=== PATIENT | male | born 1935 | race Caucasian/White ===

== ENCOUNTER → 2016-11-27 | Outpatient (CLI) | payer MEDICARE, BC ==
--- NOTE | 2016-11-27 14:45 | US ---
EXAMINATION TYPE: US kidneys/renal and bladder DATE OF EXAM: 11/27/2016 2:21 PM COMPARISON: NONE CLINICAL HISTORY: 81-year-old male N18.9 CKD Unspecified. TECHNIQUE: Multiple sonographic images of the kidneys and bladder were obtained. FINDINGS: Right Kidney: 9.1 x 5.6 x 5.0 cm without hydronephrosis. Left Kidney: 10.1 x 5.7 x 5.2 cm without hydronephrosis. There is a 5.2 cm exophytic simple cyst in the medial upper pole. Partial distention of the bladder limits its evaluation. Prominent prostate gland is noted measuring at least 5.3 cm wide. IMPRESSION: 1. No hydronephrosis. 2. A 5.2 cm benign exophytic cyst upper pole left kidney. 3. Prostatomegaly measuring at least 5.3 cm wide.
== END | disposition home or self-care (01) ==
LOC: RADUSWWP 14:05
PROVIDERS: ATTEND Internal Medicine Geriatric Medicine
DX: N18.9 Chronic kidney disease, unspecified (principal); N28.1 Cyst of kidney, acquired
CPT/HCPCS: 76770

== ENCOUNTER → 2017-08-21 | Outpatient (CLI) | payer MEDICARE, BC ==
--- NOTE | 2017-08-21 16:37 | CT ---
EXAMINATION TYPE: CT brain wo con DATE OF EXAM: 08/21/2017 COMPARISON: MR brain dated 01/14/2013 HISTORY: Episode of Right hand and arm numbness CT DLP: 1121 mGycm Automated exposure control for dose reduction was used. FINDINGS: There is no acute intracranial hemorrhage or midline shift identified. There is diffuse v entricular and sulcal prominence consistent with diffuse age-related cerebral atrophy. Few foci of hy poattenuation are seen within the periventricular white matter consistent with chronic small vessel i schemic change. Scant mucosal thickening is seen within the right ethmoid sinus. The globes are inta ct and the remaining visualized sinuses are clear. No suspicious extra-axial fluid collection. IMPRESSION: 1. No acute intracranial hemorrhage or midline shift. No evidence of recent acute territorial infarct . 2. 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 3. Mild paranasal sinus disease.
--- NOTE | 2017-08-21 17:01 | US ---
EXAMINATION TYPE: US carotid duplex BILAT DATE OF EXAM: 08/21/2017 COMPARISON: NONE CLINICAL HISTORY: G45.9 TIA, I65.29 stenosis of carotid. Right hand numbness per patient. EXAM MEASUREMENTS: RIGHT: Peak Systolic Velocity (PSV) cm/sec ----- Right CCA: 65.2 ----- Right ICA: 158.9 ----- Right ECA: 166.8 proximally in tortuous lumen ICA/CCA ratio: 2.4 RIGHT: End Diastole cm/sec ----- Right CCA: 14.7 ----- Right ICA: 30.8 ----- Right ECA: 0.0 LEFT: Peak Systolic Velocity (PSV) cm/sec ----- Left CCA: 56.5 ----- Left ICA: 304.5 ----- Left ECA: 91.5 ICA/CCA ratio: 5.4 LEFT: End Diastole cm/sec ----- Left CCA: 11.1 ----- Left ICA: 76.9 ----- Left ECA: 0.0 VERTEBRALS (direction of flow): Right Vertebral: Antegrade Left Vertebral: Antegrade Rhythm: Normal Abnormally elevated PSV is noted in bilateral ICA with Left ICA/CCA ratio abnormally elevated > 4.0, and severe wall changes are noted in bilateral ICA. IMPRESSION: There is antegrade flow in the vertebral arteries. Images of measurements suggest 50-70% stenosis in the right internal carotid artery and close to 90% stenosis in the left internal carotid artery. Criteria for Assigning % of Stenosis / Diameter reduction (Estimation based on the indirect measurements of the internal carotid artery velocities (ICA PSV). 1. Normal (no stenosis)=ICA PSV < 125 cm/s: ratio < 2.0: ICA EDV<40 cm/s. 2. Less than 50% stenosis=ICA PSV < 125 cm/s: ratio < 2.0: ICA EDV<40 cm/s. 3. 50 to 69% stenosis=ICA PSV of 125 to 230 cm/s: ration 2.0 ? 4.0: ICA EDV 40-100 cm/s. 4. Greater than 70% stenosis to near occlusion= ICA PSV > 230 cm/s: ratio > 4.0: ICA EDV > 100 cm/s. 5. Near occlusion= ICA PSV velocities may be low or undetectable: variable ratio and ICA EDV. 6. Total occlusion=unable to detect flow.
== END | disposition home or self-care (01) ==
LOC: RADCTMAIN 15:57
PROVIDERS: ATTEND Internal Medicine Geriatric Medicine
DX: G31.9 Degenerative disease of nervous system, unspecified (principal); R90.82 White matter disease, unspecified; I65.29 Occlusion and stenosis of unspecified carotid artery; Z86.73 Personal history of transient ischemic attack (TIA), and cerebral infarction without residual deficits
CPT/HCPCS: 70450; 93880

== ENCOUNTER 2020-11-23 15:54 | Emergency (ER) | payer MEDICARE ==
[2020-11-23 16:03] VITALS: TEMP 97.8
[2020-11-23 16:57] LABS: Basophils % (A) 1 %; Eosinophils # (A) 0.1 k/uL (0-0.7); Eosinophils % (A) 2 %; HCT 32.8 % (39.0-53.0); HGB 10.8 gm/dL (13.0-17.5); INR 1.1 (<1.2); Lymphocytes # (A) 0.8 k/uL (1.0-4.8); Lymphocytes % (A) 23 %; MCH 31.2 pg (25.0-35.0); MCV 94.4 fL (80.0-100.0); Mean Platelet Volume 10.7; Monocytes # (A) 0.2 k/uL (0-1.0); Monocytes % (A) 7 %; Neutrophils # (A) 2.2 k/uL (1.3-7.7); Neutrophils % (A) 65 %; Partial Thromboplastin Time 24.5 sec (22.0-30.0); Prothrombin Time 11.2 sec (9.0-12.0); RBC 3.48 m/uL (4.30-5.90); RDW 13.1 % (11.5-15.5); WBC 3.4 k/uL (3.8-10.6)
[2020-11-23 16:58] LABS: Platelet Count 95 k/uL (150-450)
[2020-11-23 17:02] LABS: Albumin 4.1 g/dL (3.5-5.0); Calcium 8.7 mg/dL (8.4-10.2); Potassium 4.5 mmol/L (3.5-5.1); Total Bilirubin 0.6 mg/dL (0.2-1.3); Total Protein 6.7 g/dL (6.3-8.2)
[2020-11-23 17:05] LABS: Appearance,Urine Clear (Clear); Bilirubin,Urine Negative (Negative); Blood,Urine Negative (Negative); Color,Urine Light Yellow; Glucose,Urine (UA) Negative (Negative); Ketones,Urine Negative (Negative); Leukocyte Esterase,Urine Negative (Negative); Nitrite,Urine Negative (Negative); Protein,Urine Trace (Negative); Specific Gravity,Urine 1.007 (1.001-1.035); Urobilinogen,Urine <2.0 mg/dL (<2.0)
[2020-11-23] MEDS ORDERED: SODIUM CHLORIDE 0.9% 1,000 ML IV ONE (17:52)
--- NOTE | 2020-11-23 18:36 | ED ---
General Adult HPI - General Chief complaint: Recheck/Abnormal Lab/Rx Stated complaint: Sent by PCP - abn labs Time Seen by Provider: 11/23/20 16:07 Source: patient Mode of arrival: ambulatory Limitations: no limitations - History of Present Illness Initial comments: Patient is an 85-year-old male past medical history of chronic kidney disease, diabetes who presents to the emergency department under the direction of Dr. Gregory. He sees her in office for chronic kidney disease. He reports that he had blood work done at [facility] yesterday. This was normal follow-up blood work. Denies any was having any symptoms. He was called today and they indicated to him that his lab work was significantly off. They recommended that he go to the emergency room for evaluation. Patient does not know what these abnormal labs are. He denies any changes in his urination. No decrease in frequency. No dysuria. He denies any weakness, fevers or chills. No nausea or vomiting. No abdominal pain. No other alleviating, precipitating or modifying factors - Related Data Home Medications Medication Instructions Recorded Confirmed Cholecalciferol [Vitamin D3 (25 25 mcg PO DAILY 11/23/20 11/23/20 Mcg = 1000 Iu)] Dulaglutide [Trulicity] 0.75 mg SQ KO 11/23/20 11/23/20 Esomeprazole Magnesium [NexIUM] 40 mg PO DAILY 11/23/20 11/23/20 Fenofibrate Nanocrystallized 145 mg PO DAILY 11/23/20 11/23/20 [Fenofibrate] Ferrous Sulfate [Feosol] 325 mg PO DAILY 11/23/20 11/23/20 Furosemide [Lasix] 40 mg PO DAILY 11/23/20 11/23/20 Insulin Glargine,Hum.rec.anlog 15 unit SQ HS 11/23/20 11/23/20 [Lantus Solostar] Latanoprost/Pf [Latanoprost 0.005% 1 drop BOTH EYES HS 11/23/20 11/23/20 Eye Drop] Terazosin [Hytrin] 2 mg PO HS 11/23/20 11/23/20 amLODIPine [Norvasc] 10 mg PO DAILY 11/23/20 11/23/20 rOPINIRole HCL [Requip] 2 mg PO HS 11/23/20 11/23/20 Allergies Allergy/AdvReac Type Severity Reaction Status Date / Time No Known Allergies Allergy Verified 11/23/20 17:59 Review of Systems ROS Statement: Those systems with pertinent positive or pertinent negative responses have been documented in the HPI. ROS Other: All systems not noted in ROS Statement are negative. Past Medical History Past Medical History: Diabetes Mellitus, Hyperlipidemia, Hypertension History of Any Multi-Drug Resistant Organisms: None Reported Past Surgical History: Appendectomy, Joint Replacement, Orthopedic Surgery Past Psychological History: No Psychological Hx Reported Smoking Status: Former smoker Past Alcohol Use History: None Reported Past Drug Use History: None Reported General Exam Limitations: no limitations General appearance: alert, in no apparent distress Head exam: Present: atraumatic, normocephalic, normal inspection Eye exam: Present: normal appearance, PERRL, EOMI. Absent: scleral icterus, conjunctival injection, periorbital swelling ENT exam: Present: normal exam, mucous membranes moist Neck exam: Present: normal inspection. Absent: tenderness, meningismus, lymphadenopathy Respiratory exam: Present: normal lung sounds bilaterally. Absent: respiratory distress, wheezes, rales, rhonchi, stridor Cardiovascular Exam: Present: regular rate, normal rhythm, normal heart sounds. Absent: systolic murmur, diastolic murmur, rubs, gallop, clicks GI/Abdominal exam: Present: soft, normal bowel sounds. Absent: distended, tenderness, guarding, rebound, rigid Extremities exam: Present: normal inspection, full ROM, normal capillary refill. Absent: tenderness, pedal edema, joint swelling, calf tenderness Back exam: Present: normal inspection Neurological exam: Present: alert, oriented X3, CN II-XII intact Psychiatric exam: Present: normal affect, normal mood Skin exam: Present: warm, dry, intact, normal color. Absent: rash Course Vital Signs 11/23/20 11/23/20 16:00 19:00 Temperature 97.8 F Pulse Rate 58 L 60 Respiratory 16 18 Rate Blood Pressure 166/53 147/63 O2 Sat by Pulse 99 100 Oximetry Medical Decision Making - Medical Decision Making Upon arrival patient was placed in room 19. The history and physical was performed. Laboratory studies are requested from [facility]. I did repeat laboratory studies in our emergency department. V1 elevated at 126. Creatinine 3.8. I did discuss the results with the patient and Dr. Gregory. She recommended a liter bolus of normal saline. He will be taken off of his Lasix until she evaluates the patient. Bladder scan was performed and did not indicate that the patient was retaining urine. At this time the patient will be discharged home. Dr. Clark stated that her office will call him tomorrow for follow-up. She would like to see him next week in office. The patient is in the new or worsening symptoms he should return to the emergency room. Patient was discharged home in stable condition - Lab Data Result diagrams: 11/23/20 16:29 11/23/20 16:29 Lab Results 11/23/20 11/23/20 11/23/20 Range/Units 16:29 16:29 16:29 WBC 3.4 L (3.8-10.6) k/uL RBC 3.48 L (4.30-5.90) m/uL Hgb 10.8 L (13.0-17.5) gm/dL Hct 32.8 L (39.0-53.0) % MCV 94.4 (80.0-100.0) fL MCH 31.2 (25.0-35.0) pg MCHC 33.0 (31.0-37.0) g/dL RDW 13.1 (11.5-15.5) % Plt Count 95 L (150-450) k/uL MPV 10.7 Neutrophils % 65 % Lymphocytes % 23 % Monocytes % 7 % Eosinophils % 2 % Basophils % 1 % Neutrophils # 2.2 (1.3-7.7) k/uL Lymphocytes # 0.8 L (1.0-4.8) k/uL Monocytes # 0.2 (0-1.0) k/uL Eosinophils # 0.1 (0-0.7) k/uL Basophils # 0.0 (0-0.2) k/uL PT 11.2 (9.0-12.0) sec INR 1.1 (<1.2) APTT 24.5 (22.0-30.0) sec Sodium 139 (137-145) mmol/L Potassium 4.5 (3.5-5.1) mmol/L Chloride 107 (98-107) mmol/L Carbon Dioxide 21 L (22-30) mmol/L Anion Gap 11 mmol/L BUN 126 H* (9-20) mg/dL Creatinine 3.81 H (0.66-1.25) mg/dL Est GFR (CKD-EPI)AfAm 16 (>60 ml/min/1.73 sqM) Est GFR (CKD-EPI)NonAf 14 (>60 ml/min/1.73 sqM) Glucose 180 H (74-99) mg/dL Osmolality 340 H* (280-301) mosm/kg Calcium 8.7 (8.4-10.2) mg/dL Total Bilirubin 0.6 (0.2-1.3) mg/dL AST 32 (17-59) U/L ALT 22 (4-49) U/L Alkaline Phosphatase 61 (38-126) U/L Creatine Kinase 400 H (55-170) U/L Total Protein 6.7 (6.3-8.2) g/dL Albumin 4.1 (3.5-5.0) g/dL Urine Color Urine Appearance (Clear) Urine pH (5.0-8.0) Ur Specific [place] (1.001-1.035) Urine Protein (Negative) Urine Glucose (UA) (Negative) Urine Ketones (Negative) Urine Blood (Negative) Urine Nitrite (Negative) Urine Bilirubin (Negative) Urine Urobilinogen (<2.0) mg/dL Ur Leukocyte Esterase (Negative) Urine Osmolality (50-1400) mosm/kg 11/23/20 11/23/20 Range/Units 16:35 16:35 WBC (3.8-10.6) k/uL RBC (4.30-5.90) m/uL Hgb (13.0-17.5) gm/dL Hct (39.0-53.0) % MCV (80.0-100.0) fL MCH (25.0-35.0) pg MCHC (31.0-37.0) g/dL RDW (11.5-15.5) % Plt Count (150-450) k/uL MPV Neutrophils % % Lymphocytes % % Monocytes % % Eosinophils % % Basophils % % Neutrophils # (1.3-7.7) k/uL Lymphocytes # (1.0-4.8) k/uL Monocytes # (0-1.0) k/uL Eosinophils # (0-0.7) k/uL Basophils # (0-0.2) k/uL PT (9.0-12.0) sec INR (<1.2) APTT (22.0-30.0) sec Sodium (137-145) mmol/L Potassium (3.5-5.1) mmol/L Chloride (98-107) mmol/L Carbon Dioxide (22-30) mmol/L Anion Gap mmol/L BUN (9-20) mg/dL Creatinine (0.66-1.25) mg/dL Est GFR (CKD-EPI)AfAm (>60 ml/min/1.73 sqM) Est GFR (CKD-EPI)NonAf (>60 ml/min/1.73 sqM) Glucose (74-99) mg/dL Osmolality (280-301) mosm/kg Calcium (8.4-10.2) mg/dL Total Bilirubin (0.2-1.3) mg/dL AST (17-59) U/L ALT (4-49) U/L Alkaline Phosphatase (38-126) U/L Creatine Kinase (55-170) U/L Total Protein (6.3-8.2) g/dL Albumin (3.5-5.0) g/dL Urine Color Light Yellow Urine Appearance Clear (Clear) Urine pH 5.0 (5.0-8.0) Ur Specific [place] 1.007 (1.001-1.035) Urine Protein Trace H (Negative) Urine Glucose (UA) Negative (Negative) Urine Ketones Negative (Negative) Urine Blood Negative (Negative) Urine Nitrite Negative (Negative) Urine Bilirubin Negative (Negative) Urine Urobilinogen <2.0 (<2.0) mg/dL Ur Leukocyte Esterase Negative (Negative) Urine Osmolality 428 (50-1400) mosm/kg Disposition Clinical Impression: BRANDEE (acute kidney injury), CKD (chronic kidney disease) Disposition: HOME SELF-CARE Condition: Stable Instructions (If sedation given, give patient instructions): Acute Kidney Injury (DC) Additional Instructions: Please follow up with Dr. Gregory in 2-4 days. She will call you tomorrow. STOP taking your LASIX until Dr. Gregory tells you to go back on it. Return to the ED for any new or worsening symptoms. Is patient prescribed a controlled substance at d/c from ED?: No Referrals: Jorge L Davidson MD [Primary Care Provider] - 1-2 days Kaya Gregory MD [STAFF PHYSICIAN] - 1-2 days Time of Disposition: 18:36
[2020-11-23 19:04] VITALS: BP 147/63; PULSE 60; RESP 18
== END 2020-11-23 19:04 | disposition home or self-care (01) ==
LOC: EC 15:54
DX: N17.9 Acute kidney failure, unspecified (principal); E11.22 Type 2 diabetes mellitus with diabetic chronic kidney disease; I12.9 Hypertensive chronic kidney disease with stage 1 through stage 4 chronic kidney disease, or unspecified chronic kidney disease; N18.9 Chronic kidney disease, unspecified; E78.5 Hyperlipidemia, unspecified; Z87.891 Personal history of nicotine dependence; Z79.4 Long term (current) use of insulin; Z79.899 Other long term (current) drug therapy
CPT/HCPCS: 36415; 80053; 81003; 82550; 83930; 83935; 85025; 85610; 85730; 96360; 99282

== ENCOUNTER 2022-06-10 14:54 | Inpatient (IN) | payer OTHER, MEDICARE ==
--- NOTE | 2022-06-10 16:07 | XR ---
EXAMINATION TYPE: XR chest 2V DATE OF EXAM: 06/10/2022 COMPARISON: NONE HISTORY: Shortness of breath TECHNIQUE: Frontal and lateral views of the chest are obtained. FINDINGS: Scattered senescent parenchymal changes noted. Hyperinflation compatible with COPD. There is pulmonary venous congestion with small effusions and cardiomegaly as well as interstitial ed zen. Correlate for mild congestive failure. Mediastinal structures are stable and grossly unremarkable. No evidence for hilar prominence. Degenerative changes dorsal spine. IMPRESSION: 1. There is pulmonary venous congestion with small effusions and cardiomegaly as well as interstitial edema. Correlate for mild congestive failure.
--- NOTE | 2022-06-10 18:08 | ED ---
General Adult HPI - General Chief complaint: Shortness of Breath Stated complaint: SOB,sent by PCP Time Seen by Provider: 06/10/22 16:31 Source: patient Mode of arrival: ambulatory Limitations: no limitations - History of Present Illness Initial comments: Dictation was produced using [employer] dictation software. please excuse any grammatical, word or spelling errors. Chief Complaint: 87-year-old male presents to the emergency department for shortness of breath History of Present Illness: Patient is a 87-year-old male who presents emergency Department with shortness of breath. Symptoms have been ongoing for the last month. Patient denies any associated chest pain. Does note that his symptoms are associated with swelling of the lower extremities and hands. Family member at the bedside suspects that patient is having heart failure. As his primary care doctor about this and received some unspecified injections to help with this. Denies any fever, chills or night sweats. States symptoms are worse with exertion. The ROS documented in this emergency department record has been reviewed and confirmed by me. Those systems with pertinent positive or negative responses have been documented in the HPI. All other systems are other negative and/or noncontributory. PHYSICAL EXAM: General Impression: Alert and oriented x3, not in acute distress HEENT: Normocephalic atraumatic, extra-ocular movements intact, pupils equal and reactive to light bilaterally, mucous membranes moist. Cardiovascular: Heart regular rate and rhythm Chest: Diffuse wheezing Abdomen: abdomen soft, non-tender, non-distended, no organomegaly Musculoskeletal: Pulses present and equal in all extremities, no peripheral edema Motor: no focal deficits noted Neurological: CN II-XII grossly intact, no focal motor or sensory deficits noted Skin: Intact with no visualized rashes Psych: Normal affect and mood ED course: 87-year-old male presents emergency Department with chief complaint of shortness of breath. His symptoms have been getting worse over the last month. All signs upon arrival shows heart rate of 54, respiratory rate 26, blood pressure 180/69. Chest x-ray shows findings concerning for heart failure. Patient does not have an established diagnosis of heart failure at this time. Laboratory evaluation obtained. Leukopenia, anemia and thrombocytopenia. Level I.5, 10.2 and 149 respectively. Coag panel is unremarkable. Metabolic panel shows mild mild acidosis, elevated renal markers with a creatinine of 4.06 and a BUN of 62. Nitric peptide of 5000. Patient reevaluated at bedside at 8:00. He was given 1 sublingual nitroglycerin, 40 mg of Lasix. Patient was showing some mild work of breathing. He is placed on low settings of BiPAP for comfort. Patient be admitted with consultation to cardiology and nephrology. Admitted to [facility]. - Related Data Home Medications Medication Instructions Recorded Confirmed Cholecalciferol [Vitamin D3 (25 25 mcg PO DAILY 11/23/20 11/23/20 Mcg = 1000 Iu)] Dulaglutide [Trulicity] 0.75 mg SQ KO 11/23/20 11/23/20 Esomeprazole Magnesium [NexIUM] 40 mg PO DAILY 11/23/20 11/23/20 Fenofibrate Nanocrystallized 145 mg PO DAILY 11/23/20 11/23/20 [Fenofibrate] Ferrous Sulfate [Feosol] 325 mg PO DAILY 11/23/20 11/23/20 Furosemide [Lasix] 40 mg PO DAILY 11/23/20 11/23/20 Insulin Glargine,Hum.rec.anlog 15 unit SQ HS 11/23/20 11/23/20 [Lantus Solostar] Latanoprost/Pf [Latanoprost 0.005% 1 drop BOTH EYES HS 11/23/20 11/23/20 Eye Drop] Terazosin [Hytrin] 2 mg PO HS 11/23/20 11/23/20 amLODIPine [Norvasc] 10 mg PO DAILY 11/23/20 11/23/20 rOPINIRole HCL [Requip] 2 mg PO HS 11/23/20 11/23/20 Allergies Allergy/AdvReac Type Severity Reaction Status Date / Time No Known Allergies Allergy Verified 06/10/22 15:04 Review of Systems ROS Statement: Those systems with pertinent positive or pertinent negative responses have been documented in the HPI. ROS Other: All systems not noted in ROS Statement are negative. Past Medical History Past Medical History: Diabetes Mellitus, Hyperlipidemia, Hypertension History of Any Multi-Drug Resistant Organisms: None Reported Past Surgical History: Appendectomy, Joint Replacement, Orthopedic Surgery Past Psychological History: No Psychological Hx Reported Smoking Status: Former smoker Past Alcohol Use History: None Reported Past Drug Use History: None Reported General Exam Limitations: no limitations Course Vital Signs 06/10/22 06/10/22 06/10/22 15:01 19:29 19:31 Temperature 97.5 F L Pulse Rate 54 L 55 L Respiratory 26 H 20 Rate Blood Pressure 180/69 162/74 O2 Sat by Pulse 95 96 Oximetry Fraction of Inspired Oxygen (FIO2) 06/10/22 06/10/22 19:41 19:57 Temperature Pulse Rate Respiratory Rate Blood Pressure 146/70 O2 Sat by Pulse Oximetry Fraction of 28 Inspired Oxygen (FIO2) Medical Decision Making - Lab Data Result diagrams: 06/10/22 18:28 06/10/22 18:28 Lab Results 06/10/22 06/10/22 06/10/22 Range/Units 18:28 18:28 18:28 WBC 1.5 L (3.8-10.6) k/uL RBC 3.17 L (4.30-5.90) m/uL Hgb 10.2 L (13.0-17.5) gm/dL Hct 30.4 L (39.0-53.0) % MCV 96.0 (80.0-100.0) fL MCH 32.3 (25.0-35.0) pg MCHC 33.6 (31.0-37.0) g/dL RDW 14.6 (11.5-15.5) % Plt Count 149 L (150-450) k/uL MPV 10.2 Neutrophils % 42 % Lymphocytes % 42 % Monocytes % 3 % Eosinophils % 8 % Basophils % 2 % Neutrophils # 0.6 L (1.3-7.7) k/uL Lymphocytes # 0.6 L (1.0-4.8) k/uL Monocytes # 0.0 (0-1.0) k/uL Eosinophils # 0.1 (0-0.7) k/uL Basophils # 0.0 (0-0.2) k/uL Hypochromasia Slight PT 10.5 (9.0-12.0) sec INR 1.0 (<1.2) APTT 27.1 (22.0-30.0) sec Sodium 141 (137-145) mmol/L Potassium 4.7 (3.5-5.1) mmol/L Chloride 109 H (98-107) mmol/L Carbon Dioxide 19 L (22-30) mmol/L Anion Gap 13 mmol/L BUN 62 H (9-20) mg/dL Creatinine 4.06 H (0.66-1.25) mg/dL Est GFR (CKD-EPI)AfAm 15 (>60 ml/min/1.73 sqM) Est GFR (CKD-EPI)NonAf 13 (>60 ml/min/1.73 sqM) Glucose 76 (74-99) mg/dL Plasma Lactic Acid [place] (0.7-2.0) mmol/L Calcium 8.8 (8.4-10.2) mg/dL Magnesium 1.9 (1.6-2.3) mg/dL Total Bilirubin 0.7 (0.2-1.3) mg/dL AST 23 (17-59) U/L ALT 21 (4-49) U/L Alkaline Phosphatase 82 (38-126) U/L Troponin I (0.000-0.034) ng/mL NT-Pro-B Natriuret Pep pg/mL Total Protein 6.9 (6.3-8.2) g/dL Albumin 4.4 (3.5-5.0) g/dL Influenza Type A (PCR) (Not Detectd) Influenza Type B (PCR) (Not Detectd) RSV (PCR) (Not Detectd) SARS-CoV-2 (PCR) (Not Detectd) 06/10/22 06/10/22 06/10/22 Range/Units 18:28 18:28 18:28 WBC (3.8-10.6) k/uL RBC (4.30-5.90) m/uL Hgb (13.0-17.5) gm/dL Hct (39.0-53.0) % MCV (80.0-100.0) fL MCH (25.0-35.0) pg MCHC (31.0-37.0) g/dL RDW (11.5-15.5) % Plt Count (150-450) k/uL MPV Neutrophils % % Lymphocytes % % Monocytes % % Eosinophils % % Basophils % % Neutrophils # (1.3-7.7) k/uL Lymphocytes # (1.0-4.8) k/uL Monocytes # (0-1.0) k/uL Eosinophils # (0-0.7) k/uL Basophils # (0-0.2) k/uL Hypochromasia PT (9.0-12.0) sec INR (<1.2) APTT (22.0-30.0) sec Sodium (137-145) mmol/L Potassium (3.5-5.1) mmol/L Chloride (98-107) mmol/L Carbon Dioxide (22-30) mmol/L Anion Gap mmol/L BUN (9-20) mg/dL Creatinine (0.66-1.25) mg/dL Est GFR (CKD-EPI)AfAm (>60 ml/min/1.73 sqM) Est GFR (CKD-EPI)NonAf (>60 ml/min/1.73 sqM) Glucose (74-99) mg/dL Plasma Lactic Acid [place]o <0.5 L (0.7-2.0) mmol/L Calcium (8.4-10.2) mg/dL Magnesium (1.6-2.3) mg/dL Total Bilirubin (0.2-1.3) mg/dL AST (17-59) U/L ALT (4-49) U/L Alkaline Phosphatase (38-126) U/L Troponin I <0.012 (0.000-0.034) ng/mL NT-Pro-B Natriuret Pep 5080 pg/mL Total Protein (6.3-8.2) g/dL Albumin (3.5-5.0) g/dL Influenza Type A (PCR) (Not Detectd) Influenza Type B (PCR) (Not Detectd) RSV (PCR) (Not Detectd) SARS-CoV-2 (PCR) (Not Detectd) 06/10/22 Range/Units 19:21 WBC (3.8-10.6) k/uL RBC (4.30-5.90) m/uL Hgb (13.0-17.5) gm/dL Hct (39.0-53.0) % MCV (80.0-100.0) fL MCH (25.0-35.0) pg MCHC (31.0-37.0) g/dL RDW (11.5-15.5) % Plt Count (150-450) k/uL MPV Neutrophils % % Lymphocytes % % Monocytes % % Eosinophils % % Basophils % % Neutrophils # (1.3-7.7) k/uL Lymphocytes # (1.0-4.8) k/uL Monocytes # (0-1.0) k/uL Eosinophils # (0-0.7) k/uL Basophils # (0-0.2) k/uL Hypochromasia PT (9.0-12.0) sec INR (<1.2) APTT (22.0-30.0) sec Sodium (137-145) mmol/L Potassium (3.5-5.1) mmol/L Chloride (98-107) mmol/L Carbon Dioxide (22-30) mmol/L Anion Gap mmol/L BUN (9-20) mg/dL Creatinine (0.66-1.25) mg/dL Est GFR (CKD-EPI)AfAm (>60 ml/min/1.73 sqM) Est GFR (CKD-EPI)NonAf (>60 ml/min/1.73 sqM) Glucose (74-99) mg/dL Plasma Lactic Acid [place] (0.7-2.0) mmol/L Calcium (8.4-10.2) mg/dL Magnesium (1.6-2.3) mg/dL Total Bilirubin (0.2-1.3) mg/dL AST (17-59) U/L ALT (4-49) U/L Alkaline Phosphatase (38-126) U/L Troponin I (0.000-0.034) ng/mL NT-Pro-B Natriuret Pep pg/mL Total Protein (6.3-8.2) g/dL Albumin (3.5-5.0) g/dL Influenza Type A (PCR) Not Detected (Not Detectd) Influenza Type B (PCR) Not Detected (Not Detectd) RSV (PCR) Not Detected (Not Detectd) SARS-CoV-2 (PCR) Not Detected (Not Detectd) Disposition Clinical Impression: Congestive heart failure Disposition: ADMITTED IP TO THIS [facility] Condition: Serious Referrals: Jorge L Davidson MD [Primary Care Provider] - 1-2 days Decision Time: 20:08
[2022-06-10 18:54] LABS: Basophils % (A) 2 %; Eosinophils # (A) 0.1 k/uL (0-0.7); Eosinophils % (A) 8 %; HCT 30.4 % (39.0-53.0); HGB 10.2 gm/dL (13.0-17.5); Hypochromasia Slight; Lymphocytes # (A) 0.6 k/uL (1.0-4.8); Lymphocytes % (A) 42 %; MCH 32.3 pg (25.0-35.0); MCHC 33.6 g/dL (31.0-37.0); Mean Platelet Volume 10.2; Monocytes % (A) 3 %; Neutrophils # (A) 0.6 k/uL (1.3-7.7); Neutrophils % (A) 42 %; Platelet Count 149 k/uL (150-450); RBC 3.17 m/uL (4.30-5.90); RDW 14.6 % (11.5-15.5); WBC 1.5 k/uL (3.8-10.6)
[2022-06-10 18:55] LABS: Albumin 4.4 g/dL (3.5-5.0); Calcium 8.8 mg/dL (8.4-10.2); Magnesium 1.9 mg/dL (1.6-2.3); Potassium 4.7 mmol/L (3.5-5.1); Total Bilirubin 0.7 mg/dL (0.2-1.3); Total Protein 6.9 g/dL (6.3-8.2)
[2022-06-10] MEDS ORDERED: FUROSEMIDE 10 MG/ML 4 ML VIAL IV STA (19:00)
[2022-06-10] MEDS ORDERED: SODIUM CHLORIDE 0.9% 1,000 ML IV STA (19:04)
[2022-06-10 19:08] LABS: Partial Thromboplastin Time 27.1 sec (22.0-30.0); Prothrombin Time 10.5 sec (9.0-12.0)
[2022-06-10] MEDS: NITROGLYCERIN SL TABS 0.4 MG TAB SUBLINGUAL STA ×3 (19:22→20:14)
[2022-06-10] MEDS ORDERED: NALOXONE 0.4 MG/ML 1 ML VIAL IV PRN (20:05)
[2022-06-10] MEDS ORDERED: ACETAMINOPHEN TAB 325 MG TAB PO PRN (20:05)
[2022-06-10] MEDS ORDERED: ONDANSETRON 4 MG/2 ML VIAL IVP PRN (20:05)
[2022-06-10] MEDS ORDERED: FUROSEMIDE 10 MG/ML 4 ML VIAL IV SCH (20:15)
[2022-06-11 01:20] LABS: Glucose,Whole Blood 127 mg/dL (70-110)
--- NOTE | 2022-06-11 07:45 | P.CRDCN ---
History of Present Illness Consult date: 06/11/22 Chief complaint: Shortness of breath History of present illness: The patient is an 87-year-old gentleman with a past medical history significant for diabetes and hypertension and dyslipidemia who presented to the emergency department complaining of shortness of breath. The patient somewhat is a poor historian. He stated that the shortness of breath started about 4 weeks ago and it was associated lately with bilateral lower except his edema. No fever no chills. No cough or sputum production. No symptoms of chest pain or chest discomfort. He presented to the emergency department where he underwent an investigation including a chest x-ray which showed evidence of heart failure/pulmonary congestion. He underwent an NT proBNP which came in to be elevated. Beside that his creatinine when he presented was 5.6 with a baseline creatinine from 2020 of 3.8. The patient was started on Lasix and he was admitted to the intensive care unit. He was started also on BiPAP. When he was seen and evaluated this morning he does have bilateral lower extremities edema which apparently has improved overnight on Lasix IV. He also does have b ilateral expiratory wheezing/diminished breathing sounds bilaterally. He was in mild heart failure when he was seen this morning. Otherwise he is hemodynamically stable. No history of congestive heart failure according to him. No history of coronary artery disease and no history of cardiac arrhy thmia. He does have diabetes and hypertension and dyslipidemia and also he does have carotid atherosclerosis with prior carotid endarterectomy. He follows with a vascular surgeon regularly according to him. Past Medical History Past Medical History: Diabetes Mellitus, Hyperlipidemia, Hypertension History of Any Multi-Drug Resistant Organisms: None Reported Past Surgical History: Appendectomy, Joint Replacement, Orthopedic Surgery Past Psychological History: No Psychological Hx Reported Smoking Status: Former smoker Past Alcohol Use History: None Reported Past Drug Use History: None Reported Medications and Allergies Home Medications Medication Instructions Recorded Confirmed Type Cholecalciferol [Vitamin D3 (25 25 mcg PO DAILY 11/23/20 06/10/22 History Mcg = 1000 Iu)] Ferrous Sulfate [Feosol] 325 mg PO DAILY 11/23/20 06/10/22 History Furosemide [Lasix] 40 mg PO DAILY PRN 11/23/20 06/10/22 History Insulin Glargine,Hum.rec.anlog 18 unit SQ DIRECTED 11/23/20 06/10/22 History [Lantus Solostar] Latanoprost/Pf [Latanoprost 0.005% 1 drop BOTH EYES HS 11/23/20 06/10/22 History Eye Drop] Terazosin [Hytrin] 2 mg PO HS 11/23/20 06/10/22 History amLODIPine [Norvasc] 10 mg PO DAILY 11/23/20 06/10/22 History Dulaglutide [Trulicity] 1.5 mg SQ KO 06/10/22 06/10/22 History Lidocaine 5% Patch [Lidoderm] 1 patch TOPICAL DAILY PRN 06/10/22 06/10/22 History Losartan Potassium 100 mg PO DAILY 06/10/22 06/10/22 History Magnesium Oxide 400 mg PO DAILY 06/10/22 06/10/22 History Omeprazole 20 mg PO BID 06/10/22 06/10/22 History Simvastatin [Zocor] 20 mg PO HS 06/10/22 06/10/22 History allopurinoL [Zyloprim] 100 mg PO DAILY 06/10/22 06/10/22 History carvediloL [Coreg] 25 mg PO BID 06/10/22 06/10/22 History metOLazone [Zaroxolyn] 2.5 mg PO MOWEFR 06/10/22 06/10/22 History rOPINIRole HCL [Requip] 0.5 mg PO HS 06/10/22 06/10/22 History Allergies Allergy/AdvReac Type Severity Reaction Status Date / Time No Known Allergies Allergy Verified 06/10/22 20:49 Physical Exam Vitals: Vital Signs Temp Pulse Pulse Resp BP BP Pulse Ox 06/11/22 04:00 98.4 F 60 14 159/61 96 06/11/22 03:16 06/11/22 02:00 20 06/11/22 01:23 98.2 F 63 17 160/77 96 06/11/22 01:10 67 152/76 06/11/22 00:05 64 16 141/72 98 06/10/22 22:58 06/10/22 20:11 57 L 20 161/106 96 06/10/22 19:57 06/10/22 19:41 146/70 06/10/22 19:31 162/74 06/10/22 19:29 55 L 20 96 06/10/22 15:01 97.5 F L 54 L 26 H 180/69 95 FiO2 06/11/22 04:00 28 06/11/22 03:16 28 06/11/22 02:00 06/11/22 01:23 28 06/11/22 01:10 06/11/22 00:05 06/10/22 22:58 28 06/10/22 20:11 06/10/22 19:57 28 06/10/22 19:41 06/10/22 19:31 06/10/22 19:29 06/10/22 15:01 Intake and Output 06/10/22 06/11/22 06/11/22 22:59 06:59 14:59 Output Total 675 Balance -675 Output: Urine 675 Other: Voiding Method Urinal # Voids 1 Weight 77.111 kg 83.3 kg - Constitutional General appearance: no acute distress - Respiratory Respiratory: bilateral: diminished, wheezing - Cardiovascular Rhythm: regular Heart sounds: normal: S1, S2 Abnormal Heart Sounds: systolic murmur Results 06/10/22 18:28 06/10/22 18:28 Cardiac Enzymes 06/10/22 06/10/22 Range/Units 18:28 18:28 AST 23 (17-59) U/L Troponin I <0.012 (0.000-0.034) ng/mL Coagulation 06/10/22 Range/Units 18:28 PT 10.5 (9.0-12.0) sec APTT 27.1 (22.0-30.0) sec CBC 06/10/22 Range/Units 18:28 WBC 1.5 L (3.8-10.6) k/uL RBC 3.17 L (4.30-5.90) m/uL Hgb 10.2 L (13.0-17.5) gm/dL Hct 30.4 L (39.0-53.0) % Plt Count 149 L (150-450) k/uL Comprehensive Metabolic Panel 06/10/22 Range/Units 18:28 Sodium 141 (137-145) mmol/L Potassium 4.7 (3.5-5.1) mmol/L Chloride 109 H (98-107) mmol/L Carbon Dioxide 19 L (22-30) mmol/L BUN 62 H (9-20) mg/dL Creatinine 4.06 H (0.66-1.25) mg/dL Glucose 76 (74-99) mg/dL Calcium 8.8 (8.4-10.2) mg/dL AST 23 (17-59) U/L ALT 21 (4-49) U/L Alkaline Phosphatase 82 (38-126) U/L Total Protein 6.9 (6.3-8.2) g/dL Albumin 4.4 (3.5-5.0) g/dL Current Medications Generic Name Dose Route Start Last Admin Trade Name Freq PRN Reason Stop Dose Admin Acetaminophen 650 mg 06/10/22 20:05 Acetaminophen Tab 325 Mg Tab PO Q6HR PRN Mild Pain or Fever > 100.5 Furosemide 40 mg 06/11/22 09:00 Furosemide 10 Mg/Ml 4 Ml Vial IV Q12H EDILSON Sodium Chloride 1,000 mls @ 20 mls/hr 06/10/22 19:04 06/10/22 19:32 Saline 0.9% IV 06/11/22 19:03 20 mls/hr .Q24H STA Administration Naloxone HCl 0.2 mg 06/10/22 20:05 Naloxone 0.4 Mg/Ml 1 Ml Vial IV Q2M PRN Opioid Reversal Ondansetron HCl 4 mg 06/10/22 20:05 Ondansetron 4 Mg/2 Ml Vial IVP Q8HR PRN Nausea And Vomiting Intake and Output 06/10/22 06/11/22 06/11/22 22:59 06:59 14:59 Output Total 675 Balance -675 Output: Urine 675 Other: Voiding Method Urinal # Voids 1 Weight 77.111 kg 83.3 kg 06/10/22 18:28 06/10/22 18:28 Assessment and Plan Assessment: Assessment 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
[2022-06-11] MEDS: FUROSEMIDE 10 MG/ML 4 ML VIAL IV SCH ×2 (08:51→20:18)
--- NOTE | 2022-06-11 09:58 | P.NPCON ---
History of Present Illness - Reason for Consult acute renal failure, chronic renal failure - History of Present Illness Reason for consultation: Acute kidney injury on chronic kidney disease History of present illness: Patient is 87-year-old male seen in consultation for acute kidney injury on chronic kidney disease. 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 Patient's baseline creatinine has been in the range of 3.5-4 recently. Patient presented to the hospital with shortness of breath which she states has been going on for the la st 1 month or so. Patient denies history of coronary artery disease. Blood pressure has been in the systolic 140 to 160s. He was on BiPAP and is currently on 4 L He was taken oral Lasix and metolazone at home. Losartan is also listed in his home medication list. Chest x-ray suggestive of fluid overload. He is currently maintained on IV Lasix 40 mg twice daily. He has been voiding. Denies use of nonsteroidals but is not completely sure of the meds that he takes. No fever. Does have a nonproductive cough. Patient has long-standing history of diabetes. ProBNP noted to be elevated. Vital signs are stable. General: Awake. HEENT: Head exam is unremarkable. On nasal cannula. LUNGS: Breath sounds decreased. Diffuse wheezing. HEART: Rate and Rhythm are regular. ABDOMEN: Soft, obese. EXTREMITITES: Trace edema. Past Medical History Past Medical History: Diabetes Mellitus, Hyperlipidemia, Hypertension History of Any Multi-Drug Resistant Organisms: None Reported Past Surgical History: Appendectomy, Joint Replacement, Orthopedic Surgery Past Psychological History: No Psychological Hx Reported Smoking Status: Former smoker Past Alcohol Use History: None Reported Past Drug Use History: None Reported Medications and Allergies Home Medications Medication Instructions Recorded Confirmed Type Cholecalciferol [Vitamin D3 (25 25 mcg PO DAILY 11/23/20 06/10/22 History Mcg = 1000 Iu)] Ferrous Sulfate [Feosol] 325 mg PO DAILY 11/23/20 06/10/22 History Furosemide [Lasix] 40 mg PO DAILY PRN 11/23/20 06/10/22 History Insulin Glargine,Hum.rec.anlog 18 unit SQ DIRECTED 11/23/20 06/10/22 History [Lantus Solostar] Latanoprost/Pf [Latanoprost 0.005% 1 drop BOTH EYES HS 11/23/20 06/10/22 History Eye Drop] Terazosin [Hytrin] 2 mg PO HS 11/23/20 06/10/22 History amLODIPine [Norvasc] 10 mg PO DAILY 11/23/20 06/10/22 History Dulaglutide [Trulicity] 1.5 mg SQ KO 06/10/22 06/10/22 History Lidocaine 5% Patch [Lidoderm] 1 patch TOPICAL DAILY PRN 06/10/22 06/10/22 History Losartan Potassium 100 mg PO DAILY 06/10/22 06/10/22 History Magnesium Oxide 400 mg PO DAILY 06/10/22 06/10/22 History Omeprazole 20 mg PO BID 06/10/22 06/10/22 History Simvastatin [Zocor] 20 mg PO HS 06/10/22 06/10/22 History allopurinoL [Zyloprim] 100 mg PO DAILY 06/10/22 06/10/22 History carvediloL [Coreg] 25 mg PO BID 06/10/22 06/10/22 History metOLazone [Zaroxolyn] 2.5 mg PO MOWEFR 06/10/22 06/10/22 History rOPINIRole HCL [Requip] 0.5 mg PO HS 06/10/22 06/10/22 History Allergies Allergy/AdvReac Type Severity Reaction Status Date / Time No Known Allergies Allergy Verified 06/10/22 20:49 Physical Exam Vitals: Vital Signs Temp Pulse Pulse Resp BP BP Pulse Ox 06/11/22 08:00 98.2 F 62 24 144/63 93 L 06/11/22 04:00 98.4 F 60 14 159/61 96 06/11/22 03:16 06/11/22 02:00 20 06/11/22 01:23 98.2 F 63 17 160/77 96 06/11/22 01:10 67 152/76 06/11/22 00:05 64 16 141/72 98 06/10/22 22:58 06/10/22 20:11 57 L 20 161/106 96 06/10/22 19:57 06/10/22 19:41 146/70 06/10/22 19:31 162/74 06/10/22 19:29 55 L 20 96 06/10/22 15:01 97.5 F L 54 L 26 H 180/69 95 FiO2 06/11/22 08:00 06/11/22 04:00 28 06/11/22 03:16 28 06/11/22 02:00 06/11/22 01:23 28 06/11/22 01:10 06/11/22 00:05 06/10/22 22:58 28 06/10/22 20:11 06/10/22 19:57 28 06/10/22 19:41 06/10/22 19:31 06/10/22 19:29 06/10/22 15:01 Intake and Output 06/10/22 06/11/22 06/11/22 22:59 06:59 14:59 Output Total 675 Balance -675 Output: Urine 675 Other: Voiding Method Urinal Urinal # Voids 1 Weight 77.111 kg 83.3 kg Results - Lab Results Most recent lab results Calcium 8.8 mg/dL (8.4-10.2) 06/10/22 18:28 Magnesium 1.9 mg/dL (1.6-2.3) 06/10/22 18:28 06/10/22 18:28 06/10/22 18:28 Assessment and Plan Plan: Assessment: 1. Acute kidney injury secondary to ATN secondary to cardiorenal syndrome. Creatinine 4.06 on admission. Rule out urinary retention. 2. 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 3. Volume overload. 4. CHF. Unknown ejection fraction. 5. Metabolic acidosis secondary to acute kidney injury. 6. Hypertension with chronic kidney disease. 7. Diabetes mellitus. Plan: Maintain IV Lasix. 1500 mL fluid restriction and low-salt diet. Check iron studies. Add oral bicarb. Check bladder scan to rule out urinary retention. Check renal ultrasound. Hold losartan for now. Resume amlodipine at lower dose of 5 mg once daily. Hold for systolic blood pressure less than 125. Follow-up echocardiogram. Patient was referred for renal replacement therapy education outpatient but has not attended. Continue to assess daily for need for renal replacement therapy. No urgency at this time. Thank you for the consultation. I will continue to follow the patient with you during his hospital stay.
[2022-06-11] MEDS: SODIUM BICARBONATE TAB 650 MG TAB PO SCH ×2 (10:27→20:19)
[2022-06-11] MEDS: amLODIPine 5 MG TAB PO SCH (10:27)
[2022-06-11 10:37] VITALS: BMI 30.5
--- NOTE | 2022-06-11 10:50 | US ---
EXAMINATION TYPE: US kidneys/renal and bladder DATE OF EXAM: 06/11/2022 COMPARISON: NONE CLINICAL HISTORY: brandee. BRANDEE EXAM MEASUREMENTS: Right Kidney: 7.7 x 4.1 x 3.6 cm Left Kidney: 10.1 x 5.3 x 4.8 cm Right Kidney: limited evaluation, atrophic, no evidence of hydronephrosis Left Kidney: cystic area = 6.5 x 5.5 x 6.8, appears simple cystic upper pole as on prior exam Bladder: Bladder wall somewhat thickened and trabeculated Bilateral Jets seen: no There is no evidence for hydronephrosis at this point in time. No nephrolithiasis is seen. No mansoor s are identified. Cortical medullary differentiation is maintained. The urinary bladder is anechoic IMPRESSION: Correlate for possible chronic bladder outlet obstruction or cystitis. Atrophy of the right kidney, t echnologist reports some limitations the exam, there is no hydronephrosis bilaterally. Simple cyst up per pole left kidney.
[2022-06-11 11:33] LABS: Basophils % (A) 1 %; Eosinophils # (A) 0.1 k/uL (0-0.7); Eosinophils % (A) 8 %; HCT 28.6 % (39.0-53.0); HGB 9.5 gm/dL (13.0-17.5); Hypochromasia Slight; Lymphocytes # (A) 0.4 k/uL (1.0-4.8); Lymphocytes % (A) 40 %; MCH 32.1 pg (25.0-35.0); MCHC 33.2 g/dL (31.0-37.0); MCV 96.9 fL (80.0-100.0); Monocytes % (A) 4 %; Neutrophils % (A) 43 %; Platelet Count 151 k/uL (150-450); RBC 2.95 m/uL (4.30-5.90); RDW 15.2 % (11.5-15.5)
[2022-06-11 11:37] LABS: WBC 1.1 k/uL (3.8-10.6)
[2022-06-11 11:38] LABS: Neutrophils # (A) 0.5 k/uL (1.3-7.7)
[2022-06-11 11:39] LABS: Calcium 8.5 mg/dL (8.4-10.2); Magnesium 1.8 mg/dL (1.6-2.3); Potassium 4.8 mmol/L (3.5-5.1)
[2022-06-11 12:03] LABS: Glucose,Whole Blood 95 mg/dL (70-110)
[2022-06-11] MEDS: IPRATROPIUM-ALBUTEROL 3 ML NEB INHALATION SCH ×4 (14:50→23:08)
--- NOTE | 2022-06-11 16:18 | CA ---
Transthoracic Echo Report Name: Fredrick Martins Age: 87 Gender: M : 1935 Exam Date: 06/11/2022 08:14 Exam Location: [facility] Ht (in): 65 Wt (lb): 183 Ordering Physician: Jimenez Dodson MD ([id number]) Attending/Referring Phys: Director Of District Office Nicole Cabral RDCS Procedure CPT: Indications: Ejection Fraction/ CHF Cardiac Hx: Technical Quality: Contrast 1: Total Dose (mL): Contrast 2: Total Dose (mL): MEASUREMENTS (Male / Female) Normal Values 2D ECHO LV Diastolic Diameter PLAX 4.9 cm 4.2 - 5.9 / 3.9 - 5.3 cm LV Systolic Diameter PLAX 4.4 cm IVS Diastolic Thickness 1.2 cm 0.6 - 1.0 / 0.6 - 0.9 cm LVPW Diastolic Thickness 1.6 cm 0.6 - 1.0 / 0.6 - 0.9 cm LV Relative Wall Thickness 0.6 RV Internal Dim ED PLAX 3.4 cm M-MODE Aortic Root Diameter MM 2.9 cm LA Systolic Diameter MM 4.5 cm LA Ao Ratio MM 1.6 MV E Point Septal Separation 0.4 cm AV Cusp Separation MM 2.2 cm FINDINGS Left Ventricle Left ventricular ejection fraction is estimated at 55 %. Mildly increased left ventricular wall thickness. Right Ventricle Right ventricular dilatation. Right Atrium Normal right atrial size. Left Atrium Normal left atrial size. Mitral Valve Structurally normal mitral valve. Mild mitral regurgitation. Aortic Valve Trileaflet aortic valve. Tricuspid Valve Structurally normal tricuspid valve. Mild tricuspid regurgitation. Pulmonic Valve Structurally normal pulmonic valve. Pericardium Echo free space anterior to the right ventricle likely represents a fat pad. Aorta CONCLUSIONS Mild LVH with preserved systolic function Previewed by: Dr. Wally Rcih MD (Electronically Signed) Final Date: 11 June 2022 16:17
[2022-06-11 16:22] LABS: Glucose,Whole Blood 119 mg/dL (70-110)
[2022-06-11] MEDS: PANTOPRAZOLE 40 MG TABLET PO SCH (16:28)
[2022-06-11] MEDS: HEPARIN SODIUM,PORCINE/PF 5,000 UNIT/0.5 ML SYRINGE SQ SCH ×2 (16:28→23:57)
[2022-06-11] MEDS ORDERED: carvediloL 12.5 MG TAB PO SCH (17:30)
[2022-06-11 20:15] LABS: Glucose,Whole Blood 130 mg/dL (70-110)
[2022-06-11] MEDS: LATANOPROST 0.005% OPHTH DROPS 2.5 ML BTL BOTH EYES SCH (20:18)
[2022-06-11] MEDS: DOXAZOSIN 2 MG TAB PO SCH (20:19)
[2022-06-11] MEDS: ATORVASTATIN 10 MG TAB PO SCH (20:19)
[2022-06-11 20:38] LABS: % Iron Saturation 12.33 (15.00-50.00)
--- NOTE | 2022-06-11 20:50 | P.HPIM ---
History of Present Illness H&P Date: 06/11/22 Chief Complaint: Shortness of breath Patient is a 87-year-old male with a known history of hypertension, hyperlipidemia, diabetes type 2, chronic kidney disease stage IV and prior history of smoking presents to ER with complaints of shortness of breath. Patient states that he has been having worsening symptoms for the past 3 to 4 weeks and also bilateral lower EXTR and puffiness of the hands. No complaints of chest pain. Denied any complaints of fever or chills. No nausea vomiting abdominal pain or diarrhea. Patient denies any prior history of coronary artery disease. On admission chest x-ray showed there is pulmonary venous congestion with small effusions and cardiomegaly as well as interstitial edema. Correlate for mild CHF. Laboratory data showed WC 1.4 hemoglobin 10.2 and platelets 149 Sodium 141 potassium 4.7 bicarb is 19 BUN 61 creatinine 4.06 and lactic acid less than 0.5 proBNP is 5080 troponin x1 negative liver enzymes are not elevated and coronavirus and influenza a and B and RSV not detected. On admission blood pressure 180/69 pulse is 54 and respiration 26. He was requiring BiPAP in the ER and was transferred to MICU. Review of Systems Constitutional: Patient denies any fever or chills . no Generalized weakness. Abdomen: Patient denied any nausea or vomiting or abd. pain Cardiovascular: Patient denies any chest pain. Patient does have short of breath no palpitations. Leg swelling positive. Puffiness of the hands. Respiratory: patient denied any cough . no sputum production. Positive for shortness of breath Neurologic: Patient denied any numbness or tingling headache. Musculoskeletal: Patient denies any complaints of joint swelling or deformity. Skin: Negative Psychiatric: Negative Endocrine: No heat or cold intolerance. No recent weight gain. Genitourinary: No dysuria or hematuria. All other 14 point ROS negative except the above Past Medical History Past Medical History: Diabetes Mellitus, Hyperlipidemia, Hypertension History of Any Multi-Drug Resistant Organisms: None Reported Past Surgical History: Appendectomy, Joint Replacement, Orthopedic Surgery Past Psychological History: No Psychological Hx Reported Smoking Status: Former smoker Past Alcohol Use History: None Reported Past Drug Use History: None Reported Medications and Allergies Home Medications Medication Instructions Recorded Confirmed Type Cholecalciferol [Vitamin D3 (25 25 mcg PO DAILY 11/23/20 06/10/22 History Mcg = 1000 Iu)] Ferrous Sulfate [Feosol] 325 mg PO DAILY 11/23/20 06/10/22 History Furosemide [Lasix] 40 mg PO DAILY PRN 11/23/20 06/10/22 History Insulin Glargine,Hum.rec.anlog 18 unit SQ DIRECTED 11/23/20 06/10/22 History [Lantus Solostar] Latanoprost/Pf [Latanoprost 0.005% 1 drop BOTH EYES HS 11/23/20 06/10/22 History Eye Drop] Terazosin [Hytrin] 2 mg PO HS 11/23/20 06/10/22 History amLODIPine [Norvasc] 10 mg PO DAILY 11/23/20 06/10/22 History Dulaglutide [Trulicity] 1.5 mg SQ KO 06/10/22 06/10/22 History Lidocaine 5% Patch [Lidoderm] 1 patch TOPICAL DAILY PRN 06/10/22 06/10/22 History Losartan Potassium 100 mg PO DAILY 06/10/22 06/10/22 History Magnesium Oxide 400 mg PO DAILY 06/10/22 06/10/22 History Omeprazole 20 mg PO BID 06/10/22 06/10/22 History Simvastatin [Zocor] 20 mg PO HS 06/10/22 06/10/22 History allopurinoL [Zyloprim] 100 mg PO DAILY 06/10/22 06/10/22 History carvediloL [Coreg] 25 mg PO BID 06/10/22 06/10/22 History metOLazone [Zaroxolyn] 2.5 mg PO MOWEFR 06/10/22 06/10/22 History rOPINIRole HCL [Requip] 0.5 mg PO HS 06/10/22 06/10/22 History Allergies Allergy/AdvReac Type Severity Reaction Status Date / Time No Known Allergies Allergy Verified 06/10/22 20:49 Physical Exam Vitals: Vital Signs Temp Pulse Pulse Resp BP BP Pulse Ox 06/11/22 08:00 98.2 F 62 24 144/63 93 L 06/11/22 04:00 98.4 F 60 14 159/61 96 06/11/22 03:16 06/11/22 02:00 20 06/11/22 01:23 98.2 F 63 17 160/77 96 06/11/22 01:10 67 152/76 06/11/22 00:05 64 16 141/72 98 06/10/22 22:58 06/10/22 20:11 57 L 20 161/106 96 06/10/22 19:57 06/10/22 19:41 146/70 06/10/22 19:31 162/74 06/10/22 19:29 55 L 20 96 06/10/22 15:01 97.5 F L 54 L 26 H 180/69 95 FiO2 06/11/22 08:00 06/11/22 04:00 28 06/11/22 03:16 28 06/11/22 02:00 06/11/22 01:23 28 06/11/22 01:10 06/11/22 00:05 06/10/22 22:58 28 06/10/22 20:11 06/10/22 19:57 28 06/10/22 19:41 06/10/22 19:31 06/10/22 19:29 06/10/22 15:01 Intake and Output 06/10/22 06/11/22 06/11/22 22:59 06:59 14:59 Output Total 675 Balance -675 Output: Urine 675 Other: Voiding Method Urinal Urinal # Voids 1 Weight 77.111 kg 83.3 kg PHYSICAL EXAMINATION: Patient is lying in the bed comfortably, no acute distress, awake alert and oriented.. HEENT: Normocephalic. Neck is supple. Pupils reactive. Nostrils clear. Oral cavity is moist. Neck reveals no JVD, carotid bruits, or thyromegaly. CHEST EXAMINATION: Trachea is central. Symmetrical expansion. Bibasilar minimal crackles and diminished sounds. . No wheezing.. Nonlabored breathing. CARDIAC: Normal S1, S2 with no gallops. No murmurs ABDOMEN: Soft. Bowel sounds present. Nontender. No organomegaly. No abdominal bruits. Extremities: Ankle edema.. No clubbing or cyanosis Neurologically awake, alert, oriented x3 with well-coordinated movements. No fo fox deficits noted Skin: No rash or skin lesions. Psychiatric: Coperative. Nonsuicidal, Musculoskeletal: No joint swelling or deformity. Normal range of motion. Results CBC & Chem 7: 06/11/22 10:56 06/11/22 10:56 Labs: Abnormal Lab Results - Last 24 Hours (Table) 06/10/22 06/10/22 06/10/22 Range/Units 18:28 18:28 18:28 WBC 1.5 L (3.8-10.6) k/uL RBC 3.17 L (4.30-5.90) m/uL Hgb 10.2 L (13.0-17.5) gm/dL Hct 30.4 L (39.0-53.0) % Plt Count 149 L (150-450) k/uL Neutrophils # 0.6 L (1.3-7.7) k/uL Lymphocytes # 0.6 L (1.0-4.8) k/uL Chloride 109 H (98-107) mmol/L Carbon Dioxide 19 L (22-30) mmol/L BUN 62 H (9-20) mg/dL Creatinine 4.06 H (0.66-1.25) mg/dL POC Glucose (mg/dL) (70-110) mg/dL Plasma Lactic Acid Layo <0.5 L (0.7-2.0) mmol/L 06/11/22 Range/Units 01:18 WBC (3.8-10.6) k/uL RBC (4.30-5.90) m/uL Hgb (13.0-17.5) gm/dL Hct (39.0-53.0) % Plt Count (150-450) k/uL Neutrophils # (1.3-7.7) k/uL Lymphocytes # (1.0-4.8) k/uL Chloride (98-107) mmol/L Carbon Dioxide (22-30) mmol/L BUN (9-20) mg/dL Creatinine (0.66-1.25) mg/dL POC Glucose (mg/dL) 127 H (70-110) mg/dL Plasma Lactic Acid Layo (0.7-2.0) mmol/L Thrombosis Risk Factor Assmnt - DVT/VTE Prophylaxis DVT/VTE Prophylaxis: Pharmacologic Prophylaxis ordered - Choose All That Apply Each Factor Represents 1 point: Obesity (BMI >25), Swollen legs (current) Each Risk Factor Represents 3 Points: Age 75 years or older Other congenital or acquired thrombophilia - If yes, enter type in comment: No Thrombosis Risk Factor Assessment Total Risk Factor Score: 5 Thrombosis Risk Factor Assessment Level: High Risk Assessment and Plan Assessment: Acute hypoxic respiratory failure requiring BiPAP Acute CHF ejection fraction not known. Due to fluid overload. Acute on chronic kidney disease stage IV likely due to cardiorenal syndrome. Uncontrolled hypertension Diabetes type 2 insulin-dependent Prior history of smoking DVT prophylaxis Heparin subcu Plan: Patient is currently in the MICU.. On BiPAP. Titrate down oxygen to nasal cannula. Continue with IV Lasix 40 mg twice daily. Patient will be started back on Coreg and losartan on hold due to acute kidney injury. Renal ultrasound ordered to rule out any obstruction. 2D echocardiogram was ordered. Cardiology and nephrology is on board. Discussed with the patient and his family mother at bedside in detail. Prognosis is guarded. Time with Patient: Greater than 30
[2022-06-11] MEDS ORDERED: INSULIN DETEMIR (LEVEMIR) 100 UNIT/ML SYR SQ SCH (21:00)
[2022-06-12] MEDS: IPRATROPIUM-ALBUTEROL 3 ML NEB INHALATION SCH ×6 (03:12→23:36)
[2022-06-12 06:15] LABS: Glucose,Whole Blood 46 mg/dL (70-110)
[2022-06-12 06:37] LABS: Glucose,Whole Blood 52 mg/dL (70-110)
[2022-06-12] MEDS ORDERED: DEXTROSE 50% SYRINGE 50 ML IVP ONE (06:40)
[2022-06-12 06:44] LABS: Glucose,Whole Blood 55 mg/dL (70-110)
[2022-06-12] MEDS: PANTOPRAZOLE 40 MG TABLET PO SCH ×2 (07:02→17:48)
[2022-06-12 07:06] LABS: Glucose,Whole Blood 143 mg/dL (70-110)
[2022-06-12 07:14] LABS: Calcium 8.6 mg/dL (8.4-10.2); Magnesium 1.9 mg/dL (1.6-2.3); Potassium 3.9 mmol/L (3.5-5.1)
[2022-06-12 07:48] LABS: Glucose,Whole Blood 158 mg/dL (70-110)
[2022-06-12] MEDS: amLODIPine 5 MG TAB PO SCH (09:30)
[2022-06-12] MEDS: SODIUM BICARBONATE TAB 650 MG TAB PO SCH ×2 (09:30→20:37)
[2022-06-12] MEDS: MAGNESIUM OXIDE 400 MG TAB PO SCH (09:30)
[2022-06-12] MEDS: HEPARIN SODIUM,PORCINE/PF 5,000 UNIT/0.5 ML SYRINGE SQ SCH ×3 (09:30→23:36)
[2022-06-12] MEDS: allopurinoL 100 MG TAB PO SCH (09:30)
[2022-06-12] MEDS: FUROSEMIDE 10 MG/ML 4 ML VIAL IV SCH ×2 (09:30→20:37)
--- NOTE | 2022-06-12 10:30 | P.PN ---
Subjective Patient is seen in follow-up for acute kidney injury on chronic kidney disease. Renal function fairly stable. Currently on BiPAP. Blood pressure stable. On IV Lasix. Nonoliguric. Vital signs are stable. General: Awake. No acute distress. HEENT: Head exam is unremarkable. On BiPAP. LUNGS: Breath sounds decreased. HEART: Rate and Rhythm are regular. ABDOMEN: Soft, obese. EXTREMITITES: Trace edema. Objective - Vital Signs Vital signs: Vital Signs Temp 98.7 F 06/12/22 04:00 Pulse 57 L 06/12/22 08:20 Resp 22 06/12/22 08:20 BP 155/80 06/12/22 08:20 Pulse Ox 96 06/12/22 08:20 FiO2 28 06/12/22 08:20 Intake & Output 06/11/22 06/12/22 06/12/22 18:59 06:59 18:59 Intake Total 680 240 20 Output Total 1276 1300 Balance -596 -1060 20 Weight 83.3 kg 82.3 kg Intake: Intake, IV Titration 240 240 20 Amount Sodium Chloride 0.9% 1, 240 240 20 000 ml @ 20 mls/hr IV . Q24H [facility] Rx#:[id number] Oral 440 Output: Urine 1250 1300 Post Void Residual 26 Other: Voiding Method Urinal Urinal # Voids 1 # Bowel Movements 1 - Labs CBC & Chem 7: 06/11/22 10:56 06/12/22 06:23 Labs: Abnormal Lab Results - Last 24 Hours (Table) 06/11/22 06/11/22 06/11/22 Range/Units 10:56 10:56 16:21 WBC 1.1 L* (3.8-10.6) k/uL RBC 2.95 L (4.30-5.90) m/uL Hgb 9.5 L (13.0-17.5) gm/dL Hct 28.6 L (39.0-53.0) % Neutrophils # 0.5 L (1.3-7.7) k/uL Lymphocytes # 0.4 L (1.0-4.8) k/uL Chloride 110 H (98-107) mmol/L BUN 62 H (9-20) mg/dL Creatinine 3.79 H (0.66-1.25) mg/dL Glucose 104 H (74-99) mg/dL POC Glucose (mg/dL) 119 H (70-110) mg/dL Iron 29 L (65-175) ug/dL % Saturation 12.33 L (15.00-50.00) Transferrin 168.0 L (204.0-354.0) mg/dL Ferritin 406.0 H (22.0-322.0) ng/mL 06/11/22 06/12/22 06/12/22 Range/Units 20:14 06:14 06:23 WBC (3.8-10.6) k/uL RBC (4.30-5.90) m/uL Hgb (13.0-17.5) gm/dL Hct (39.0-53.0) % Neutrophils # (1.3-7.7) k/uL Lymphocytes # (1.0-4.8) k/uL Chloride 111 H (98-107) mmol/L BUN 63 H (9-20) mg/dL Creatinine 3.93 H (0.66-1.25) mg/dL Glucose 47 L* (74-99) mg/dL POC Glucose (mg/dL) 130 H 46 L (70-110) mg/dL Iron (65-175) ug/dL % Saturation (15.00-50.00) Transferrin (204.0-354.0) mg/dL Ferritin (22.0-322.0) ng/mL 06/12/22 06/12/22 06/12/22 Range/Units 06:35 06:42 07:05 WBC (3.8-10.6) k/uL RBC (4.30-5.90) m/uL Hgb (13.0-17.5) gm/dL Hct (39.0-53.0) % Neutrophils # (1.3-7.7) k/uL Lymphocytes # (1.0-4.8) k/uL Chloride (98-107) mmol/L BUN (9-20) mg/dL Creatinine (0.66-1.25) mg/dL Glucose (74-99) mg/dL POC Glucose (mg/dL) 52 L 55 L 143 H (70-110) mg/dL Iron (65-175) ug/dL % Saturation (15.00-50.00) Transferrin (204.0-354.0) mg/dL Ferritin (22.0-322.0) ng/mL 06/12/22 Range/Units 07:46 WBC (3.8-10.6) k/uL RBC (4.30-5.90) m/uL Hgb (13.0-17.5) gm/dL Hct (39.0-53.0) % Neutrophils # (1.3-7.7) k/uL Lymphocytes # (1.0-4.8) k/uL Chloride (98-107) mmol/L BUN (9-20) mg/dL Creatinine (0.66-1.25) mg/dL Glucose (74-99) mg/dL POC Glucose (mg/dL) 158 H (70-110) mg/dL Iron (65-175) ug/dL % Saturation (15.00-50.00) Transferrin (204.0-354.0) mg/dL Ferritin (22.0-322.0) ng/mL Assessment and Plan Plan: Assessment: 1. Acute kidney injury secondary to ATN secondary to cardiorenal syndrome. Creatinine 4.06 on admission - stable at 3.93 today. Right kidney atrophic. No hydronephrosis noted. Possible chronic bladder outlet obstruction. 2. 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 3. Volume overload. Improving with diuresis. 4. Acute on chronic diastolic CHF. 5. Metabolic acidosis secondary to acute kidney injury. On oral bicarb. Better. 6. Hypertension with chronic kidney disease. Stable. 7. Diabetes mellitus. 8. Bicytopenia. Iron deficiency noted. Plan: Maintain IV Lasix. 1500 mL fluid restriction and low-salt diet. Add IV iron. Hold losartan for now. Patient was referred for renal replacement therapy education outpatient but has not attended. Continue to assess daily for need for renal replacement therapy. No urgency at this time. Repeat chest x-ray. Consider hematology eval for leukopenia. Check UA.
[2022-06-12] MEDS: SODIUM FERRIC GLUCONAT-SUCROSE 125 MG in SODIUM CHLORIDE 0.9% 100 ML IVPB SCH (11:25)
[2022-06-12 12:03] LABS: Glucose,Whole Blood 273 mg/dL (70-110)
--- NOTE | 2022-06-12 12:17 | P.PN ---
Subjective Progress Note Date: 06/12/22 Principal diagnosis: Heart failure with preserved ejection fraction The patient is an 87-year-old gentleman with a past medical history significant for diabetes and hypertension and dyslipidemia who presented to the emergency department complaining of shortness of breath. The patient somewhat is a poor historian. He stated that the shortness of breath started about 4 weeks ago and it was associated lately with bilateral lower except his edema. No fever no chills. No cough or sputum production. No symptoms of chest pain or chest discomfort. He presented to the emergency department where he underwent an investigation including a chest x-ray which showed evidence of heart failure/pulmonary congestion. He underwent an NT proBNP which came in to be elevated. Beside that his creatinine when he presented was 5.6 with a baseline creatinine from 2020 of 3.8. The patient was started on Lasix and he was admitted to the intensive care unit. He was started also on BiPAP. When he was seen and evaluated this morning he does have bilateral lower extremities edema which apparently has improved overnight on Lasix IV. He also does have bilateral expiratory wheezing/diminished breathing sounds bilaterally. He was in mild heart failure when he was seen this morning. Otherwise he is hemodynamically stable. No history of congestive heart failure according to him. No history of coronary artery disease and no history of cardiac arrhythmia. He does have diabetes and hypertension and dyslipidemia and also he does have carotid atherosclerosis with prior carotid endarterectomy. He follows with a vascular surgeon regularly according to him. June [id number] The patient was seen this morning. Overall is feeling better but he states that the shortness of breath has improved. He lower extremities edema has improved as well. He underwent an echo which revealed preserved left ventricle systolic function was mild concentric left ventricular hypertrophy. He continues to be on Lasix IV. The kidney function continues to be stable. Nephrology service is on the case as well. Objective - Vital Signs Vital signs: Vital Signs Temp 98.7 F 06/12/22 04:00 Pulse 49 L 06/12/22 11:02 Resp 22 06/12/22 08:20 BP 155/80 06/12/22 08:20 Pulse Ox 96 06/12/22 08:20 FiO2 28 06/12/22 10:50 Intake & Output 06/11/22 06/12/22 06/12/22 18:59 06:59 18:59 Intake Total 680 240 40 Output Total 1276 1300 0 Balance -596 -1060 40 Weight 83.3 kg 82.3 kg Intake: Intake, IV Titration 240 240 40 Amount Sodium Chloride 0.9% 1, 240 240 40 000 ml @ 20 mls/hr IV . Q24H [facility] Rx#:[id number] Oral 440 Output: Urine 1250 1300 0 Post Void Residual 26 Other: Voiding Method Urinal Urinal Urinal # Voids 1 # Bowel Movements 1 - Constitutional General appearance: Present: no acute distress - Respiratory Respiratory: bilateral: diminished - Cardiovascular Heart sounds: normal: S1, S2 Abnormal Heart Sounds: Present: systolic murmur - Labs CBC & Chem 7: 06/11/22 10:56 06/12/22 06:23 Labs: Abnormal Lab Results - Last 24 Hours (Table) 06/11/22 06/11/22 06/11/22 Range/Units 10:56 16:21 20:14 Chloride (98-107) mmol/L BUN (9-20) mg/dL Creatinine (0.66-1.25) mg/dL Glucose (74-99) mg/dL POC Glucose (mg/dL) 119 H 130 H (70-110) mg/dL Iron 29 L (65-175) ug/dL % Saturation 12.33 L (15.00-50.00) Transferrin 168.0 L (204.0-354.0) mg/dL Ferritin 406.0 H (22.0-322.0) ng/mL 06/12/22 06/12/22 06/12/22 Range/Units 06:14 06:23 06:35 Chloride 111 H (98-107) mmol/L BUN 63 H (9-20) mg/dL Creatinine 3.93 H (0.66-1.25) mg/dL Glucose 47 L* (74-99) mg/dL POC Glucose (mg/dL) 46 L 52 L (70-110) mg/dL Iron (65-175) ug/dL % Saturation (15.00-50.00) Transferrin (204.0-354.0) mg/dL Ferritin (22.0-322.0) ng/mL 06/12/22 06/12/22 06/12/22 Range/Units 06:42 07:05 07:46 Chloride (98-107) mmol/L BUN (9-20) mg/dL Creatinine (0.66-1.25) mg/dL Glucose (74-99) mg/dL POC Glucose (mg/dL) 55 L 143 H 158 H (70-110) mg/dL Iron (65-175) ug/dL % Saturation (15.00-50.00) Transferrin (204.0-354.0) mg/dL Ferritin (22.0-322.0) ng/mL 06/12/22 Range/Units 12:00 Chloride (98-107) mmol/L BUN (9-20) mg/dL Creatinine (0.66-1.25) mg/dL Glucose (74-99) mg/dL POC Glucose (mg/dL) 273 H (70-110) mg/dL Iron (65-175) ug/dL % Saturation (15.00-50.00) Transferrin (204.0-354.0) mg/dL Ferritin (22.0-322.0) ng/mL Assessment and Plan Assessment: Assessment Heart failure with evidence of biventricular failure with heart failure related to preserved ejection fraction Acute on chronic renal failure Diabetes type 2 Hypertension Dyslipidemia Plan Continue the current medical regimen including Lasix IV Continue monitor the kidney function and electrolytes Follow-up with the patient
[2022-06-12 16:02] LABS: Appearance,Urine Cloudy (Clear); Bacteria,Urine Occasional /hpf; Bilirubin,Urine Negative (Negative); Blood,Urine Negative (Negative); Color,Urine Light Yellow; Glucose,Urine (UA) Negative (Negative); Hyaline Casts,Urine 13 /lpf (0-2); Ketones,Urine Negative (Negative); Leukocyte Esterase,Urine Small (Negative); Mucus,Urine Rare /hpf; Nitrite,Urine Negative (Negative); Protein,Urine 1+ (Negative); RBC,Urine 1 /hpf (0-5); Specific Gravity,Urine 1.011 (1.001-1.035); Squamous Epithelial Cell,Urine <1 /hpf (0-4); Urobilinogen,Urine <2.0 mg/dL (<2.0); WBC,Urine 6 /hpf (0-5)
[2022-06-12 16:35] LABS: Glucose,Whole Blood 112 mg/dL (70-110)
[2022-06-12 19:55] LABS: Glucose,Whole Blood 166 mg/dL (70-110)
[2022-06-12] MEDS: ATORVASTATIN 10 MG TAB PO SCH (20:37)
[2022-06-12] MEDS: INSULIN DETEMIR (LEVEMIR) 100 UNIT/ML SYR SQ SCH (20:37)
[2022-06-12] MEDS: LATANOPROST 0.005% OPHTH DROPS 2.5 ML BTL BOTH EYES SCH (21:00)
[2022-06-12] MEDS: DOXAZOSIN 2 MG TAB PO SCH (21:01)
[2022-06-13] MEDS: IPRATROPIUM-ALBUTEROL 3 ML NEB INHALATION SCH ×6 (04:56→23:37)
[2022-06-13 05:53] LABS: Glucose,Whole Blood 51 mg/dL (70-110)
[2022-06-13 06:13] LABS: Glucose,Whole Blood 70 mg/dL (70-110)
[2022-06-13] MEDS: PANTOPRAZOLE 40 MG TABLET PO SCH ×2 (06:26→18:20)
--- NOTE | 2022-06-13 08:28 | XR ---
EXAMINATION TYPE: XR chest 1V DATE OF EXAM: 06/13/2022 COMPARISON: Chest x-ray 06/10/2022 HISTORY: Shortness of breath TECHNIQUE: Single frontal view of the chest is obtained. FINDINGS: Bibasilar patchy densities persist, this blunting the costophrenic angles. Cardiac mediast inal sweat is stable. There is no evident pneumothorax. There are overlying leads. Mild prominence in terstitium is noted. IMPRESSION: Correlate for interstitial edema, small effusions, difficult to exclude pneumonia
[2022-06-13 08:44] LABS: HCT 29.5 % (39.0-53.0); HGB 9.5 gm/dL (13.0-17.5); Hypochromasia Moderate; MCHC 32.3 g/dL (31.0-37.0); MCV 98.9 fL (80.0-100.0); Macrocytosis Slight; Mean Platelet Volume 9.9; Platelet Count 147 k/uL (150-450); RBC 2.98 m/uL (4.30-5.90); RDW 14.8 % (11.5-15.5)
[2022-06-13 08:58] LABS: Calcium 8.5 mg/dL (8.4-10.2); Magnesium 1.7 mg/dL (1.6-2.3); Potassium 4.3 mmol/L (3.5-5.1)
[2022-06-13] MEDS: SODIUM FERRIC GLUCONAT-SUCROSE 125 MG in SODIUM CHLORIDE 0.9% 100 ML IVPB SCH (09:00)
[2022-06-13] MEDS: HEPARIN SODIUM,PORCINE/PF 5,000 UNIT/0.5 ML SYRINGE SQ SCH ×3 (09:00→23:43)
[2022-06-13] MEDS: amLODIPine 5 MG TAB PO SCH ×2 (09:00→21:59)
[2022-06-13] MEDS: FUROSEMIDE 10 MG/ML 4 ML VIAL IV SCH ×2 (09:00→21:59)
[2022-06-13] MEDS: allopurinoL 100 MG TAB PO SCH (09:00)
[2022-06-13] MEDS: SODIUM BICARBONATE TAB 650 MG TAB PO SCH ×2 (09:00→21:59)
[2022-06-13] MEDS: MAGNESIUM OXIDE 400 MG TAB PO SCH (09:00)
[2022-06-13 09:03] LABS: WBC 0.9 k/uL (3.8-10.6)
[2022-06-13] MEDS ORDERED: MAGNESIUM SULFATE-D5W PMX 1 GM in DEXTROSE/WATER 1 100ML.BAG IVPB ONE (09:53)
--- NOTE | 2022-06-13 09:55 | P.PN ---
Subjective Patient is seen in follow-up for acute kidney injury on chronic kidney disease. Renal function fairly stable. Currently on 3 L nasal cannula. Blood pressure on the higher side. On IV Lasix. Nonoliguric. Vital signs are stable. General: Awake. No acute distress. HEENT: Head exam is unremarkable. On nasal cannula. LUNGS: Breath sounds decreased. HEART: Rate and Rhythm are regular. ABDOMEN: Soft, obese. EXTREMITITES: Trace edema. Objective - Vital Signs Vital signs: Vital Signs Temp 97.6 F 06/13/22 03:54 Pulse 70 06/13/22 08:04 Resp 15 06/13/22 03:54 BP 165/56 06/13/22 03:54 Pulse Ox 96 06/13/22 07:50 FiO2 28 06/13/22 03:54 Intake & Output 06/12/22 06/13/22 06/13/22 18:59 06:59 18:59 Intake Total 500 240 Output Total 400 1400 Balance 100 -1400 240 Weight 79 kg Intake: Intake, IV Titration 140 Amount Sodium Chloride 0.9% 1, 40 000 ml @ 20 mls/hr IV . Q24H [facility] Rx#:[id number] Sodium Ferric Gluconat- 100 Sucrose 125 mg In Sodium Chloride 0.9% 100 ml @ 100 mls/hr IVPB DAILY [facility] Rx#:[id number] Oral 360 240 Output: Urine 400 1400 Other: Voiding Method Urinal # Bowel Movements 1 - Labs CBC & Chem 7: 06/13/22 07:45 06/13/22 07:45 Labs: Abnormal Lab Results - Last 24 Hours (Table) 06/12/22 06/12/22 06/12/22 Range/Units 12:00 13:28 16:34 RBC (4.30-5.90) m/uL Hgb (13.0-17.5) gm/dL Hct (39.0-53.0) % Plt Count (150-450) k/uL BUN (9-20) mg/dL Creatinine (0.66-1.25) mg/dL Glucose (74-99) mg/dL POC Glucose (mg/dL) 273 H 112 H (70-110) mg/dL Urine Protein 1+ H (Negative) Ur Leukocyte Esterase Small H (Negative) Urine WBC 6 H (0-5) /hpf Urine Bacteria Occasional H (None) /hpf Hyaline Casts 13 H (0-2) /lpf Urine Mucus Rare H (None) /hpf 06/12/22 06/13/22 06/13/22 Range/Units 19:54 05:52 07:45 RBC (4.30-5.90) m/uL Hgb (13.0-17.5) gm/dL Hct (39.0-53.0) % Plt Count (150-450) k/uL BUN 58 H (9-20) mg/dL Creatinine 3.87 H (0.66-1.25) mg/dL Glucose 120 H (74-99) mg/dL POC Glucose (mg/dL) 166 H 51 L (70-110) mg/dL Urine Protein (Negative) Ur Leukocyte Esterase (Negative) Urine WBC (0-5) /hpf Urine Bacteria (None) /hpf Hyaline Casts (0-2) /lpf Urine Mucus (None) /hpf 06/13/22 Range/Units 07:45 RBC 2.98 L (4.30-5.90) m/uL Hgb 9.5 L (13.0-17.5) gm/dL Hct 29.5 L (39.0-53.0) % Plt Count 147 L (150-450) k/uL BUN (9-20) mg/dL Creatinine (0.66-1.25) mg/dL Glucose (74-99) mg/dL POC Glucose (mg/dL) (70-110) mg/dL Urine Protein (Negative) Ur Leukocyte Esterase (Negative) Urine WBC (0-5) /hpf Urine Bacteria (None) /hpf Hyaline Casts (0-2) /lpf Urine Mucus (None) /hpf Assessment and Plan Plan: Assessment: 1. Acute kidney injury secondary to ATN secondary to cardiorenal syndrome. Creatinine 4.06 on admission - stable at 3.87 today. Right kidney atrophic. No hydronephrosis noted. Possible chronic bladder outlet obstruction. 2. 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 3. Volume overload. Improving with diuresis. 4. Acute on chronic diastolic CHF. 5. Metabolic acidosis secondary to acute kidney injury. On oral bicarb. Stable. 6. Hypertension with chronic kidney disease. Blood pressure high. 7. Diabetes mellitus. 8. Pancytopenia. Iron deficiency noted. 9. Hypomagnesemia from diuresis. Plan: Maintain IV Lasix for now. 1500 mL fluid restriction and low-salt diet. Maintain IV iron. Increase amlodipine to 5 mg twice daily. Hold for systolic blood pressure less than 125. Continue to hold losartan for now. Patient was referred for renal replacement therapy education outpatient but has not attended. Continue to assess daily for need for renal replacement therapy. No urgency at this time. Consider hematology eval for pancytopenia. Replace magnesium.
--- NOTE | 2022-06-13 10:13 | P.PN ---
Subjective Progress Note Date: 06/12/22 Patient is a 87-year-old male with a known history of hypertension, hyperlipidemia, diabetes type 2, chronic kidney disease stage IV and prior history of smoking presents to ER with complaints of shortness of breath. Patient states that he has been having worsening symptoms for the past 3 to 4 weeks and also bilateral lower EXTR and puffiness of the hands. No complaints of chest pain. Denied any complaints of fever or chills. No nausea vomiting abdominal pain or diarrhea. Patient denies any prior history of coronary artery disease. On admission chest x-ray showed there is pulmonary venous congestion with small effusions and cardiomegaly as well as interstitial edema. Correlate for mild CHF. Laboratory data showed WC 1.4 hemoglobin 10.2 and platelets 149 Sodium 141 potassium 4.7 bicarb is 19 BUN 61 creatinine 4.06 and lactic acid less than 0.5 proBNP is 5080 troponin x1 negative liver enzymes are not elevated and coronavirus and influenza a and B and RSV not detected. On admission blood pressure 180/69 pulse is 54 and respiration 26. He was requiring BiPAP in the ER and was transferred to MICU. 06/12/2022 Patient is currently lying in the bed. Awake alert and oriented. Breathing status is better. Currently oxygen by nasal cannula at 3 L. Off BiPAP. Patient is being treated on IV Lasix. No complaints of chest pain. No nausea vomiting or abdominal pain or diarrhea. No cough or sputum production. Patient has been afebrile. Laboratory data showed sodium 144 potassium 3.9 chloride 101 bicarb is 24 BUN 63 and creatinine 3.93. Blood sugar came down to 4 days on this morning. Levemir dose reduced to 6 units at bedtime. Nephrology and cardiology is on board. Current medications reviewed. Objective - Vital Signs Vital signs: Vital Signs Temp 97.6 F 06/13/22 03:54 Pulse 70 06/13/22 08:04 Resp 15 06/13/22 03:54 BP 165/56 06/13/22 03:54 Pulse Ox 96 06/13/22 07:50 FiO2 28 06/13/22 03:54 Intake & Output 06/12/22 06/13/22 06/13/22 18:59 06:59 18:59 Intake Total 500 240 Output Total 400 1400 Balance 100 -1400 240 Weight 79 kg Intake: Intake, IV Titration 140 Amount Sodium Chloride 0.9% 1, 40 000 ml @ 20 mls/hr IV . Q24H [facility] Rx#:[id number] Sodium Ferric Gluconat- 100 Sucrose 125 mg In Sodium Chloride 0.9% 100 ml @ 100 mls/hr IVPB DAILY [facility] Rx#:[id number] Oral 360 240 Output: Urine 400 1400 Other: Voiding Method Urinal # Bowel Movements 1 - Exam PHYSICAL EXAMINATION: Patient is lying in the bed comfortably, no acute distress, awake alert and oriented.. HEENT: Normocephalic. Neck is supple. Pupils reactive. Nostrils clear. Oral cavity is moist. Neck reveals no JVD, carotid bruits, or thyromegaly. CHEST EXAMINATION: Trachea is central. Symmetrical expansion. Bibasilar minimal crackles and diminished sounds. . No wheezing.. Nonlabored breathing. CARDIAC: Normal S1, S2 with no gallops. No murmurs ABDOMEN: Soft. Bowel sounds present. Nontender. No organomegaly. No abdominal bruits. Extremities: Ankle edema.. No clubbing or cyanosis Neurologically awake, alert, oriented x3 with well-coordinated movements. No focal deficits noted Skin: No rash or skin lesions. Psychiatric: Coperative. Nonsuicidal, Musculoskeletal: No joint swelling or deformity. Normal range of motion. - Labs CBC & Chem 7: 06/13/22 07:45 06/13/22 07:45 Labs: Abnormal Lab Results - Last 24 Hours (Table) 06/12/22 06/12/22 06/12/22 Range/Units 12:00 13:28 16:34 RBC (4.30-5.90) m/uL Hgb (13.0-17.5) gm/dL Hct (39.0-53.0) % Plt Count (150-450) k/uL BUN (9-20) mg/dL Creatinine (0.66-1.25) mg/dL Glucose (74-99) mg/dL POC Glucose (mg/dL) 273 H 112 H (70-110) mg/dL Urine Protein 1+ H (Negative) Ur Leukocyte Esterase Small H (Negative) Urine WBC 6 H (0-5) /hpf Urine Bacteria Occasional H (None) /hpf Hyaline Casts 13 H (0-2) /lpf Urine Mucus Rare H (None) /hpf 1006/13/22 06/13/22 Range/Units 19:54 05:52 07:45 RBC (4.30-5.90) m/uL Hgb (13.0-17.5) gm/dL Hct (39.0-53.0) % Plt Count (150-450) k/uL BUN 58 H (9-20) mg/dL Creatinine 3.87 H (0.66-1.25) mg/dL Glucose 120 H (74-99) mg/dL POC Glucose (mg/dL) 166 H 51 L (70-110) mg/dL Urine Protein (Negative) Ur Leukocyte Esterase (Negative) Urine WBC (0-5) /hpf Urine Bacteria (None) /hpf Hyaline Casts (0-2) /lpf Urine Mucus (None) /hpf 06/13/22 Range/Units 07:45 RBC 2.98 L (4.30-5.90) m/uL Hgb 9.5 L (13.0-17.5) gm/dL Hct 29.5 L (39.0-53.0) % Plt Count 147 L (150-450) k/uL BUN (9-20) mg/dL Creatinine (0.66-1.25) mg/dL Glucose (74-99) mg/dL POC Glucose (mg/dL) (70-110) mg/dL Urine Protein (Negative) Ur Leukocyte Esterase (Negative) Urine WBC (0-5) /hpf Urine Bacteria (None) /hpf Hyaline Casts (0-2) /lpf Urine Mucus (None) /hpf Assessment and Plan Assessment: Acute hypoxic respiratory failure . Off BiPAP. Currently on 3 L oxygen with nasal cannula. Acute CHF with preserved EF.. Due to fluid overload. Acute on chronic kidney disease stage IV likely due to cardiorenal syndrome. Uncontrolled hypertension Diabetes type 2 insulin-dependent Prior history of smoking DVT prophylaxis Heparin subcu Plan: Patient is currently in the MICU.. On BiPAP. Titrate down oxygen to nasal cannula. Continue with IV Lasix 40 mg twice daily. Patient will be started back on Coreg and losartan on hold due to acute kidney injury. Renal ultrasound ordered to rule out any obstruction. 2D echocardiogram was ordered. Cardiology and nephrology is on board. Discussed with the patient and his family mother at bedside in detail. Prognosis is guarded. Time with Patient: Greater than 30
--- NOTE | 2022-06-13 10:35 | P.PN ---
Subjective This is a 87-year-old male with a past medical history of type 2 diabetes, hypertension, dyslipidemia, former tobacco use. He does not follow with a writer technical publications. Cardiology has been following for congestive heart failure. Patient presents to the hospital on 06/10 with worsening shortness of breath. The patient somewhat is a poor historian. He stated that the shortness of breath started about 4 weeks ago and it was associated lately with bilateral lower except his edema. No fever no chills. No cough or sputum production. No symptoms of chest pain or chest discomfort. He presented to the emergency department where he underwent an investigation including a chest x-ray which showed evidence of heart failure/pulmonary congestion. He underwent an NT proBNP which came in to be elevated. Beside that his creatinine when he presented was 5.6 with a baseline creatinine from 2020 of 3.8. He was initially admitted to ICU and started on BIPAP, he was started on IV Lasix. Patient seen and examined at bedside, he continues to be short of breath. His lower extremity edema has improved. Echocardiogram revealed EF 55%, mild mitral regurgitation. He continues to be on IV Lasix. Nephrology is following as well. Sodium 142 potassium, 4.3, BUN 58, serum creatinine 3.8, magnesium 1.7 GENERAL: In no acute distress. NECK: Supple without JVD LUNGS: Breath sounds bilateral wheezing to auscultation bilaterally. Respiration equal and unlabored. No wheezes, rales or rhonchi. HEART: Regular rate and rhythm without murmurs, rubs or gallops. S1 and S2 heard. EXTREMITIES: Normal range of motion, 2+ bilateral lower extremity edema. No clubbing or cyanosis. Peripheral pulses intact. ASSESSMENT Acute on chronic heart failure with preserved ejection fraction Acute on Chronic kidney disease Hypertension Type 2 diabetes Dyslipidemia PLAN Continue IV Lasix for additional 24 hours Monitor I/Os, daily weights Monitor renal function Continue amlodipine and statin Losartan on hold secondary to kidney function Further recommendations based on clinical course Nurse Practitioner note has been reviewed, I agree with a documented findings and plan of care. Patient was seen and examined. Objective - Vital Signs Vital signs: Vital Signs Temp 97.6 F 06/13/22 03:54 Pulse 70 06/13/22 08:04 Resp 15 06/13/22 03:54 BP 165/56 06/13/22 03:54 Pulse Ox 96 06/13/22 07:50 FiO2 28 06/13/22 03:54 Intake & Output 06/12/22 06/13/22 06/13/22 18:59 06:59 18:59 Intake Total 500 240 Output Total 400 1400 Balance 100 -1400 240 Weight 79 kg Intake: Intake, IV Titration 140 Amount Sodium Chloride 0.9% 1, 40 000 ml @ 20 mls/hr IV . Q24H [facility] Rx#:[id number] Sodium Ferric Gluconat- 100 Sucrose 125 mg In Sodium Chloride 0.9% 100 ml @ 100 mls/hr IVPB DAILY [facility] Rx#:[id number] Oral 360 240 Output: Urine 400 1400 Other: Voiding Method Urinal # Bowel Movements 1 - Labs CBC & Chem 7: 06/13/22 07:45 06/13/22 07:45 Labs: Abnormal Lab Results - Last 24 Hours (Table) 06/12/22 06/12/22 06/12/22 Range/Units 12:00 13:28 16:34 RBC (4.30-5.90) m/uL Hgb (13.0-17.5) gm/dL Hct (39.0-53.0) % Plt Count (150-450) k/uL BUN (9-20) mg/dL Creatinine (0.66-1.25) mg/dL Glucose (74-99) mg/dL POC Glucose (mg/dL) 273 H 112 H (70-110) mg/dL Urine Protein 1+ H (Negative) Ur Leukocyte Esterase Small H (Negative) Urine WBC 6 H (0-5) /hpf Urine Bacteria Occasional H (None) /hpf Hyaline Casts 13 H (0-2) /lpf Urine Mucus Rare H (None) /hpf 06/12/22 06/13/22 06/13/22 Range/Units 19:54 05:52 07:45 RBC (4.30-5.90) m/uL Hgb (13.0-17.5) gm/dL Hct (39.0-53.0) % Plt Count (150-450) k/uL BUN 58 H (9-20) mg/dL Creatinine 3.87 H (0.66-1.25) mg/dL Glucose 120 H (74-99) mg/dL POC Glucose (mg/dL) 166 H 51 L (70-110) mg/dL Urine Protein (Negative) Ur Leukocyte Esterase (Negative) Urine WBC (0-5) /hpf Urine Bacteria (None) /hpf Hyaline Casts (0-2) /lpf Urine Mucus (None) /hpf 06/13/22 Range/Units 07:45 RBC 2.98 L (4.30-5.90) m/uL Hgb 9.5 L (13.0-17.5) gm/dL Hct 29.5 L (39.0-53.0) % Plt Count 147 L (150-450) k/uL BUN (9-20) mg/dL Creatinine (0.66-1.25) mg/dL Glucose (74-99) mg/dL POC Glucose (mg/dL) (70-110) mg/dL Urine Protein (Negative) Ur Leukocyte Esterase (Negative) Urine WBC (0-5) /hpf Urine Bacteria (None) /hpf Hyaline Casts (0-2) /lpf Urine Mucus (None) /hpf
[2022-06-13 11:39] LABS: Glucose,Whole Blood 106 mg/dL (70-110)
[2022-06-13 16:58] LABS: Glucose,Whole Blood 150 mg/dL (70-110)
[2022-06-13 20:14] LABS: Glucose,Whole Blood 159 mg/dL (70-110)
[2022-06-13] MEDS: DOXAZOSIN 2 MG TAB PO SCH (21:58)
[2022-06-13] MEDS: INSULIN DETEMIR (LEVEMIR) 100 UNIT/ML SYR SQ SCH (21:59)
[2022-06-13] MEDS: ATORVASTATIN 10 MG TAB PO SCH (21:59)
[2022-06-13] MEDS: LATANOPROST 0.005% OPHTH DROPS 2.5 ML BTL BOTH EYES SCH (22:00)
[2022-06-13 23:43] LABS: Protein, Total 5.9 g/dL (6.2-8.2)
[2022-06-14 00:09] LABS: Immunoglobulin A 31.7 mg/dL (60.0-350.0); Immunoglobulin M 8.2 mg/dL (40.0-280.0)
--- NOTE | 2022-06-14 00:20 | P.PN ---
Subjective Progress Note Date: 06/13/22 Patient is a 87-year-old male with a known history of hypertension, hyperlipidemia, diabetes type 2, chronic kidney disease stage IV and prior history of smoking presents to ER with complaints of shortness of breath. Patient states that he has been having worsening symptoms for the past 3 to 4 weeks and also bilateral lower EXTR and puffiness of the hands. No complaints of chest pain. Denied any complaints of fever or chills. No nausea vomiting abdominal pain or diarrhea. Patient denies any prior history of coronary artery disease. On admission chest x-ray showed there is pulmonary venous congestion with small effusions and cardiomegaly as well as interstitial edema. Correlate for mild CHF. Laboratory data showed WC 1.4 hemoglobin 10.2 and platelets 149 Sodium 141 potassium 4.7 bicarb is 19 BUN 61 creatinine 4.06 and lactic acid less than 0.5 proBNP is 5080 troponin x1 negative liver enzymes are not elevated and coronavirus and influenza a and B and RSV not detected. On admission blood pressure 180/69 pulse is 54 and respiration 26. He was requiring BiPAP in the ER and was transferred to MICU. 06/12/2022 Patient is currently lying in the bed. Awake alert and oriented. Breathing status is better. Currently oxygen by nasal cannula at 3 L. Off BiPAP. Patient is being treated on IV Lasix. No complaints of chest pain. No nausea vomiting or abdominal pain or diarrhea. No cough or sputum production. Patient has been afebrile. Laboratory data showed sodium 144 potassium 3.9 chloride 101 bicarb is 24 BUN 63 and creatinine 3.93. Blood sugar came down to 4 days on this morning. Levemir dose reduced to 6 units at bedtime. Nephrology and cardiology is on board. 06/13/2022 Patient is currently lying in bed. Awake alert and oriented. Still complains of shortness of breath and congested cough. Leg swelling is much improved. Patient is being current IV Lasix. Currently requiring oxygen at 4 L via nasal cannula. 2D echocardiogram fairly complex of 12% and mild MR. Pulmonary and cardiology and nephrology is on board. Patient has been afebrile. No nausea vomiting abdominal pain or diarrhea. No complaints of dizziness or lightheadedness. Laboratory pressure WBC 0.9 hemoglobin 9.5 and platelets 147 BUN 58 and creatinine 3.87 and blood sugar 120 and magnesium 1.7 Current medications reviewed. Objective - Vital Signs Vital signs: Vital Signs Temp 97.6 F 06/13/22 03:54 Pulse 74 06/13/22 12:05 Resp 15 06/13/22 03:54 BP 165/56 06/13/22 03:54 Pulse Ox 96 06/13/22 07:50 FiO2 28 06/13/22 03:54 Intake & Output 06/12/22 06/13/22 06/13/22 18:59 06:59 18:59 Intake Total 500 240 Output Total 400 1400 Balance 100 -1400 240 Weight 79 kg Intake: Intake, IV Titration 140 Amount Sodium Chloride 0.9% 1, 40 000 ml @ 20 mls/hr IV . Q24H STA Rx#:[id number] Sodium Ferric Gluconat- 100 Sucrose 125 mg In Sodium Chloride 0.9% 100 ml @ 100 mls/hr IVPB DAILY EDILSON Rx#:[id number] Oral 360 240 Output: Urine 400 1400 Other: Voiding Method Urinal # Bowel Movements 1 - Exam PHYSICAL EXAMINATION: Patient is lying in the bed comfortably, no acute distress, awake alert and oriented.. HEENT: Normocephalic. Neck is supple. Pupils reactive. Nostrils clear. Oral cavity is moist. Neck reveals no JVD, carotid bruits, or thyromegaly. CHEST EXAMINATION: Trachea is central. Symmetrical expansion. Bibasilar minimal crackles and diminished sounds. . No wheezing.. Nonlabored breathing. CARDIAC: Normal S1, S2 with no gallops. No murmurs ABDOMEN: Soft. Bowel sounds present. Nontender. No organomegaly. No abdominal bruits. Extremities: Ankle edema.. No clubbing or cyanosis Neurologically awake, alert, oriented x3 with well-coordinated movements. No focal deficits noted Skin: No rash or skin lesions. Psychiatric: Coperative. Nonsuicidal, Musculoskeletal: No joint swelling or deformity. Normal range of motion. - Labs CBC & Chem 7: 06/13/22 07:45 06/13/22 07:45 Labs: Abnormal Lab Results - Last 24 Hours (Table) 06/12/22 06/12/22 06/12/22 Range/Units 13:28 16:34 19:54 WBC (3.8-10.6) k/uL RBC (4.30-5.90) m/uL Hgb (13.0-17.5) gm/dL Hct (39.0-53.0) % Plt Count (150-450) k/uL BUN (9-20) mg/dL Creatinine (0.66-1.25) mg/dL Glucose (74-99) mg/dL POC Glucose (mg/dL) 112 H 166 H (70-110) mg/dL Urine Protein 1+ H (Negative) Ur Leukocyte Esterase Small H (Negative) Urine WBC 6 H (0-5) /hpf Urine Bacteria Occasional H (None) /hpf Hyaline Casts 13 H (0-2) /lpf Urine Mucus Rare H (None) /hpf 06/13/22 06/13/22 06/13/22 Range/Units 05:52 07:45 07:45 WBC 0.9 L* (3.8-10.6) k/uL RBC 2.98 L (4.30-5.90) m/uL Hgb 9.5 L (13.0-17.5) gm/dL Hct 29.5 L (39.0-53.0) % Plt Count 147 L (150-450) k/uL BUN 58 H (9-20) mg/dL Creatinine 3.87 H (0.66-1.25) mg/dL Glucose 120 H (74-99) mg/dL POC Glucose (mg/dL) 51 L (70-110) mg/dL Urine Protein (Negative) Ur Leukocyte Esterase (Negative) Urine WBC (0-5) /hpf Urine Bacteria (None) /hpf Hyaline Casts (0-2) /lpf Urine Mucus (None) /hpf Assessment and Plan Assessment: Acute hypoxic respiratory failure . Off BiPAP. Currently on 4 L oxygen with nasal cannula. Acute CHF with preserved EF.. Due to fluid overload. Acute on chronic kidney disease stage IV likely due to cardiorenal syndrome. Uncontrolled hypertension Diabetes type 2 insulin-dependent Prior history of smoking DVT prophylaxis Heparin subcu Plan: Patient is currently in the MICU.. BiPAP prn. Titrate down oxygen to nasal cannula. Continue with IV Lasix 40 mg twice daily. Patient was started back on Coreg and losartan on hold due to acute kidney injury. Renal ultrasound ordered to ruled out any obstruction. 2D echocardiogram was ordered. Cardiology and nephrology is on board. Prognosis is guarded. Time with Patient: Greater than 30
[2022-06-14 00:35] LABS: % Iron Saturation 72.87 (15.00-50.00); Rheumatoid Factor, Qnt <10 IU/mL (0-15); Total Iron Binding Capacity 209 ug/dL (228-460)
[2022-06-14 01:07] LABS: Iron 152 ug/dL (65-175)
[2022-06-14] MEDS: IPRATROPIUM-ALBUTEROL 3 ML NEB INHALATION SCH ×6 (04:14→23:48)
[2022-06-14 06:18] LABS: Glucose,Whole Blood 65 mg/dL (70-110)
[2022-06-14] MEDS: PANTOPRAZOLE 40 MG TABLET PO SCH ×2 (06:46→16:57)
[2022-06-14 06:47] LABS: Glucose,Whole Blood 110 mg/dL (70-110)
--- NOTE | 2022-06-14 07:11 | P.PN ---
Subjective Progress Note Date: 06/14/22 Principal diagnosis: Heart failure with preserved ejection fraction The patient is an 87-year-old gentleman with a past medical history significant for diabetes and hypertension and dyslipidemia who presented to the emergency department complaining of shortness of breath. The patient somewhat is a poor historian. He stated that the shortness of breath started about 4 weeks ago and it was associated lately with bilateral lower except his edema. No fever no chills. No cough or sputum production. No symptoms of chest pain or chest discomfort. He presented to the emergency department where he underwent an investigation including a chest x-ray which showed evidence of heart failure/pulmonary congestion. He underwent an NT proBNP which came in to be elevated. Beside that his creatinine when he presented was 5.6 with a baseline creatinine from 2020 of 3.8. The patient was started on Lasix and he was admitted to the intensive care unit. He was started also on BiPAP. When he was seen and evaluated this morning he does have bilateral lower extremities edema which apparently has improved overnight on Lasix IV. He also does have bilateral expiratory wheezing/diminished breathing sounds bilaterally. He was in mild heart failure when he was seen this morning. Otherwise he is hemodynamically stable. No history of congestive heart failure according to him. No history of coronary artery disease and no history of cardiac arrhythmia. He does have diabetes and hypertension and dyslipidemia and also he does have carotid atherosclerosis with prior carotid endarterectomy. He follows with a vascular surgeon regularly according to him. June [id number] The patient was seen this morning. Overall is feeling better but he states that the shortness of breath has improved. He lower extremities edema has improved as well. He underwent an echo which revealed preserved left ventricle systolic function was mild concentric left ventricular hypertrophy. He continues to be on Lasix IV. The kidney function continues to be stable. Nephrology service is on the case as well. June [id number] The patient was seen this morning. He continues to be short of breath. He stated "I feel the same". Chest x-ray was performed yesterday continues to show findings consistent with heart failure. Currently he is on Lasix IV. We don't have kidney function as of yet this morning. Beside that he has pancytopenia and hematology was consulted to see him. An ultrasound of the abdomen to check liver and spleen is in process to be done. I would advise continue the patient on Lasix IV if the creatinine continues to be stable. Nephrology is on the case as well Objective - Vital Signs Vital signs: Vital Signs Temp 98.7 F 06/14/22 04:15 Pulse 78 06/14/22 04:15 Resp 18 06/14/22 04:15 BP 162/62 06/14/22 04:15 Pulse Ox 93 L 06/14/22 04:15 FiO2 28 06/13/22 23:40 Intake & Output 06/13/22 06/14/22 06/14/22 18:59 06:59 18:59 Intake Total 420 Output Total 950 1250 Balance -530 -1250 Intake: Oral 420 Output: Urine 950 1250 Other: Voiding Method Urinal Urinal - Constitutional General appearance: Present: no acute distress - Respiratory Respiratory: bilateral: diminished - Cardiovascular Rhythm: regular Heart sounds: normal: S1, S2 Abnormal Heart Sounds: Present: systolic murmur - Labs CBC & Chem 7: 06/13/22 07:45 06/13/22 07:45 Labs: Abnormal Lab Results - Last 24 Hours (Table) 06/13/22 06/13/22 06/13/22 Range/Units 07:45 07:45 16:55 WBC 0.9 L* (3.8-10.6) k/uL RBC 2.98 L (4.30-5.90) m/uL Hgb 9.5 L (13.0-17.5) gm/dL Hct 29.5 L (39.0-53.0) % Plt Count 147 L (150-450) k/uL BUN 58 H (9-20) mg/dL Creatinine 3.87 H (0.66-1.25) mg/dL Glucose 120 H (74-99) mg/dL POC Glucose (mg/dL) 150 H (70-110) mg/dL TIBC (228-460) ug/dL % Saturation (15.00-50.00) Transferrin (204.0-354.0) mg/dL Ferritin (22.0-322.0) ng/mL Total Protein (PEP) (6.2-8.2) g/dL IgA (60.0-350.0) mg/dL IgM (40.0-280.0) mg/dL 06/13/22 06/13/22 06/13/22 Range/Units 18:54 18:54 18:54 WBC (3.8-10.6) k/uL RBC (4.30-5.90) m/uL Hgb (13.0-17.5) gm/dL Hct (39.0-53.0) % Plt Count (150-450) k/uL BUN (9-20) mg/dL Creatinine (0.66-1.25) mg/dL Glucose (74-99) mg/dL POC Glucose (mg/dL) (70-110) mg/dL TIBC 209 L (228-460) ug/dL % Saturation 72.87 H (15.00-50.00) Transferrin 149.0 L (204.0-354.0) mg/dL Ferritin 618.0 H (22.0-322.0) ng/mL Total Protein (PEP) 5.9 L (6.2-8.2) g/dL IgA 31.7 L (60.0-350.0) mg/dL IgM 8.2 L (40.0-280.0) mg/dL 06/13/22 06/14/22 Range/Units 20:08 06:15 WBC (3.8-10.6) k/uL RBC (4.30-5.90) m/uL Hgb (13.0-17.5) gm/dL Hct (39.0-53.0) % Plt Count (150-450) k/uL BUN (9-20) mg/dL Creatinine (0.66-1.25) mg/dL Glucose (74-99) mg/dL POC Glucose (mg/dL) 159 H 65 L (70-110) mg/dL TIBC (228-460) ug/dL % Saturation (15.00-50.00) Transferrin (204.0-354.0) mg/dL Ferritin (22.0-322.0) ng/mL Total Protein (PEP) (6.2-8.2) g/dL IgA (60.0-350.0) mg/dL IgM (40.0-280.0) mg/dL Assessment and Plan Assessment: Assessment Heart failure with evidence of biventricular failure with heart failure related to preserved ejection fraction Acute on chronic renal failure Diabetes type 2 Hypertension Dyslipidemia Pancytopenia Plan Continue the current medical regimen including Lasix IV Continue monitor the kidney function and electrolytes Follow-up with the patient
--- NOTE | 2022-06-14 09:03 | US ---
EXAMINATION TYPE: US abdomen complete DATE OF EXAM: 06/14/2022 COMPARISON: US renal only CLINICAL HISTORY: bicytopenia. Bicytopenia TECHNIQUE: Multiple sonographic images of the abdomen are obtained. FINDINGS: EXAM MEASUREMENTS: Liver Length: 13.1 cm Gallbladder Wall: 0.3 cm CBD: 0.4 cm Spleen: 11.5 cm Right Kidney: 8.2 x 4.2 x 4.3 cm Left Kidney: 10.0 x 5.4 x 4.9 cm ENVIRONMENTAL HEALTH SAFETY ENGINEER NOTES: Pancreas: Obscured by bowel gas Liver: wnl Gallbladder: No evident stone Evidence for sonographic Kumari's sign: No CBD: wnl Spleen: Splenule is present = 1.7 cm in size Right Kidney: Small in size with cortical thinning Left Kidney: Cyst medial= 6.3 x 4.8 x 6.7 cm , there is an anechoic appearance with imperceptible w all and increased through transmission consistent with simple cyst Upper IVC: wnl Abd Aorta: Obscured by overlying bowel gas Incidental finding right pleural effusion The liver is homogenous. The intrahepatic portion of the IVC and proximal abdominal aorta are within normal limits. There is no evidence of cholelithiasis. Common bile duct is unremarkable. The visu alized portions of the pancreas are homogenous. The spleen is unremarkable. Kidneys are symmetric a nd free of hydronephrosis, cortical medullary differentiation is maintained. No renal lesions are se en. IMPRESSION: There are some limitations to the exam. Incidental right pleural effusion. Somewhat atrophic right ki dney. Simple cyst left kidney.
--- NOTE | 2022-06-14 09:10 | P.CONS ---
History of Present Illness - Reason for Consult Consult date: 06/13/22 low WBC Requesting physician: Arlet Manzo - Chief Complaint shortness of breath - History of Present Illness Mr. Martins is a pleasant male, with a known history of chronic kidney disease stage III. The etiology of this is felt to be diabetic nephropathy and hypertension. Creatinine has fluctuated between 1.86 on 12/28, to 2.23 and 02/01. 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 Light chain level was elevated at 42.7 mg/L, with lambda at 16.7 mg/L with a ratio mildly increased at 2.56. urine protein electrophoresis was positive for monoclonal protein, which was quite m inimal at 8.2 mg in 24 hours. The patient was therefore referred to Dr. Weston for further evaluation and recommendations. He had additional work up, including a neg bone survey so, he was placed on observation. He had a TIA with RUE weakness in 09/04. He was found to have a 90% blockage in the left carotid. He had no residual deficit. He had a rt TKR in 12/03. His labs in 06/04 had shown a stable M protein at 0.5 gm/dl. Driscoll light chain was 59.2 mg/L vs 31.4, with ratio 3.05 vs 2.23. The change was quite small in absolute terms, and the pt was recovering from his knee inflammation at that time. Pt last visit in [facility] was 09/2018. Current admit for CHF. His WBC and Hgb are noted to be low, denies recent illness, covid, F, sweats, chills, no Hx liver disease, new medications, unusual MS pain. He is breathing ok at rest. Review of Systems 10 point review of systems is negative except as stated in HPI Past Medical History Past Medical History: Diabetes Mellitus, Hyperlipidemia, Hypertension History of Any Multi-Drug Resistant Organisms: None Reported Past Surgical History: Appendectomy, Joint Replacement, Orthopedic Surgery Past Psychological History: No Psychological Hx Reported Smoking Status: Former smoker Past Alcohol Use History: None Reported Past Drug Use History: None Reported Medications and Allergies Home Medications Medication Instructions Recorded Confirmed Type Cholecalciferol [Vitamin D3 (25 25 mcg PO DAILY 11/23/20 06/10/22 History Mcg = 1000 Iu)] Ferrous Sulfate [Feosol] 325 mg PO DAILY 11/23/20 06/10/22 History Furosemide [Lasix] 40 mg PO DAILY PRN 11/23/20 06/10/22 History Insulin Glargine,Hum.rec.anlog 18 unit SQ DIRECTED 11/23/20 06/10/22 History [Lantus Solostar] Latanoprost/Pf [Latanoprost 0.005% 1 drop BOTH EYES HS 11/23/20 06/10/22 History Eye Drop] Terazosin [Hytrin] 2 mg PO HS 11/23/20 06/10/22 History amLODIPine [Norvasc] 10 mg PO DAILY 11/23/20 06/10/22 History Dulaglutide [Trulicity] 1.5 mg SQ KO 06/10/22 06/10/22 History Lidocaine 5% Patch [Lidoderm] 1 patch TOPICAL DAILY PRN 06/10/22 06/10/22 History Losartan Potassium 100 mg PO DAILY 06/10/22 06/10/22 History Magnesium Oxide 400 mg PO DAILY 06/10/22 06/10/22 History Omeprazole 20 mg PO BID 06/10/22 06/10/22 History Simvastatin [Zocor] 20 mg PO HS 06/10/22 06/10/22 History allopurinoL [Zyloprim] 100 mg PO DAILY 06/10/22 06/10/22 History carvediloL [Coreg] 25 mg PO BID 06/10/22 06/10/22 History metOLazone [Zaroxolyn] 2.5 mg PO MOWEFR 06/10/22 06/10/22 History rOPINIRole HCL [Requip] 0.5 mg PO HS 06/10/22 06/10/22 History Allergies Allergy/AdvReac Type Severity Reaction Status Date / Time No Known Allergies Allergy Verified 06/10/22 20:49 Physical Exam Vitals: Vital Signs Temp Pulse Pulse Pulse Resp BP Pulse Ox 06/13/22 16:40 99.1 F 79 20 176/69 96 06/13/22 16:15 80 06/13/22 16:06 77 97 06/13/22 14:00 74 80 18 06/13/22 12:05 74 06/13/22 12:00 98.0 F 80 18 151/58 98 06/13/22 11:54 72 06/13/22 08:04 70 06/13/22 08:00 98.7 F 74 74 22 175/67 97 06/13/22 07:50 72 96 06/13/22 05:06 64 06/13/22 04:56 64 06/13/22 03:54 97.6 F 95 15 165/56 95 06/13/22 00:00 97.6 F 72 22 173/66 95 06/12/22 23:58 64 06/12/22 23:48 64 06/12/22 23:36 70 06/12/22 22:00 70 173/74 06/12/22 20:26 65 06/12/22 20:14 66 06/12/22 20:00 98.1 F 65 22 183/68 97 FiO2 06/13/22 16:40 06/13/22 16:15 06/13/22 16:06 06/13/22 14:00 06/13/22 12:05 06/13/22 12:00 06/13/22 11:54 06/13/22 08:04 06/13/22 08:00 06/13/22 07:50 06/13/22 05:06 06/13/22 04:56 06/13/22 03:54 28 06/13/22 00:00 28 06/12/22 23:58 06/12/22 23:48 06/12/22 23:36 28 06/12/22 22:00 06/12/22 20:26 28 06/12/22 20:14 06/12/22 20:00 28 Intake and Output 06/13/22 06/13/22 06/13/22 06:59 14:59 22:59 Intake Total 420 Output Total 1400 950 Balance -1400 420 -950 Intake: Oral 420 Output: Urine 1400 950 Other: Voiding Method Urinal Weight 79 kg - Constitutional General appearance: cooperative, no acute distress, obese - EENT Eyes: anicteric sclerae, EOMI ENT: hearing grossly normal, normal oropharynx - Neck Neck: no lymphadenopathy - Respiratory Respiratory: bilateral: diminished - Cardiovascular Rhythm: regular Heart sounds: normal: S1, S2 Abnormal Heart Sounds: no systolic murmur, no diastolic murmur, no rub, no S3 Gallop, no S4 Gallop, no click, no other leg Peripheral Edema: bilateral: None - Gastrointestinal General gastrointestinal: no absent bowel sounds, no decreased bowel sounds, no distended, no hepatomegaly, no hyperactive bowel sounds, normal bowel sounds, no organomegaly, no rigid, no scaphoid, soft, no splenomegaly, no tenderness, no umbilical hernia, no ventral hernia - Integumentary Integumentary: normal - Neurologic Neurologic: CNII-XII intact - Musculoskeletal Musculoskeletal: strength equal bilaterally - Psychiatric Psychiatric: A&O x's 3, appropriate affect, intact judgment & insight Results CBC & Chem 7: 06/13/22 07:45 06/13/22 07:45 Labs: Abnormal Lab Results - Last 24 Hours (Table) 06/12/22 06/13/22 06/13/22 Range/Units 19:54 05:52 07:45 WBC (3.8-10.6) k/uL RBC (4.30-5.90) m/uL Hgb (13.0-17.5) gm/dL Hct (39.0-53.0) % Plt Count (150-450) k/uL BUN 58 H (9-20) mg/dL Creatinine 3.87 H (0.66-1.25) mg/dL Glucose 120 H (74-99) mg/dL POC Glucose (mg/dL) 166 H 51 L (70-110) mg/dL 06/13/22 06/13/22 Range/Units 07:45 16:55 WBC 0.9 L* (3.8-10.6) k/uL RBC 2.98 L (4.30-5.90) m/uL Hgb 9.5 L (13.0-17.5) gm/dL Hct 29.5 L (39.0-53.0) % Plt Count 147 L (150-450) k/uL BUN (9-20) mg/dL Creatinine (0.66-1.25) mg/dL Glucose (74-99) mg/dL POC Glucose (mg/dL) 150 H (70-110) mg/dL Assessment and Plan (1) Bicytopenia Current Visit: Yes Status: Chronic Priority: High Code(s): D75.89 - OTHER SPECIFIED DISEASES OF BLOOD AND BLOOD-FORMING ORGANS SNOMED Code(s): 12562756 Plan: MGUS, with acute drop in counts. Is this r/t acute illness or progression of disease. Labs ordered to assess MGUS. US liver and spleen. Transfuse for Hgb<7, plt <10,000. CBC daily attests: I have seen and examined patient, performed H&P, developed impression and plan of care. Discussed with dictator. Agree with documentation, dictated as a scribe
[2022-06-14] MEDS: MAGNESIUM OXIDE 400 MG TAB PO SCH (09:25)
[2022-06-14] MEDS: allopurinoL 100 MG TAB PO SCH (09:25)
[2022-06-14] MEDS: HEPARIN SODIUM,PORCINE/PF 5,000 UNIT/0.5 ML SYRINGE SQ SCH ×2 (09:25→16:57)
[2022-06-14] MEDS: SODIUM BICARBONATE TAB 650 MG TAB PO SCH ×2 (09:26→20:49)
[2022-06-14] MEDS: SODIUM FERRIC GLUCONAT-SUCROSE 125 MG in SODIUM CHLORIDE 0.9% 100 ML IVPB SCH (09:26)
[2022-06-14] MEDS: amLODIPine 5 MG TAB PO SCH ×2 (09:26→20:49)
[2022-06-14] MEDS: FUROSEMIDE 10 MG/ML 4 ML VIAL IV SCH (09:26)
--- NOTE | 2022-06-14 10:32 | P.PN ---
Subjective Patient is seen in follow-up for acute kidney injury on chronic kidney disease. Renal function fairly stable. Currently on 4 L nasal cannula. Blood pressure on the higher side. On IV Lasix. Nonoliguric. Vital signs are stable. General: Awake. No acute distress. HEENT: Head exam is unremarkable. On nasal cannula. LUNGS: Breath sounds decreased. HEART: Rate and Rhythm are regular. ABDOMEN: Soft, obese. EXTREMITITES: Trace edema. Objective - Vital Signs Vital signs: Vital Signs Temp 98.7 F 06/14/22 04:15 Pulse 70 06/14/22 07:46 Resp 18 06/14/22 04:15 BP 162/62 06/14/22 04:15 Pulse Ox 96 06/14/22 07:37 FiO2 28 06/13/22 23:40 Intake & Output 06/13/22 06/14/22 06/14/22 18:59 06:59 18:59 Intake Total 420 Output Total 950 1250 Balance -530 -1250 Intake: Oral 420 Output: Urine 950 1250 Other: Voiding Method Urinal Urinal - Labs CBC & Chem 7: 06/13/22 07:45 06/13/22 07:45 Labs: Abnormal Lab Results - Last 24 Hours (Table) 06/13/22 06/13/22 06/13/22 Range/Units 07:45 16:55 18:54 WBC 0.9 L* (3.8-10.6) k/uL POC Glucose (mg/dL) 150 H (70-110) mg/dL TIBC 209 L (228-460) ug/dL % Saturation 72.87 H (15.00-50.00) Transferrin 149.0 L (204.0-354.0) mg/dL Ferritin 618.0 H (22.0-322.0) ng/mL Total Protein (PEP) (6.2-8.2) g/dL IgA (60.0-350.0) mg/dL IgM (40.0-280.0) mg/dL 06/13/22 06/13/22 06/13/22 Range/Units 18:54 18:54 20:08 WBC (3.8-10.6) k/uL POC Glucose (mg/dL) 159 H (70-110) mg/dL TIBC (228-460) ug/dL % Saturation (15.00-50.00) Transferrin (204.0-354.0) mg/dL Ferritin (22.0-322.0) ng/mL Total Protein (PEP) 5.9 L (6.2-8.2) g/dL IgA 31.7 L (60.0-350.0) mg/dL IgM 8.2 L (40.0-280.0) mg/dL 06/14/22 Range/Units 06:15 WBC (3.8-10.6) k/uL POC Glucose (mg/dL) 65 L (70-110) mg/dL TIBC (228-460) ug/dL % Saturation (15.00-50.00) Transferrin (204.0-354.0) mg/dL Ferritin (22.0-322.0) ng/mL Total Protein (PEP) (6.2-8.2) g/dL IgA (60.0-350.0) mg/dL IgM (40.0-280.0) mg/dL Assessment and Plan Plan: Assessment: 1. Acute kidney injury secondary to ATN secondary to cardiorenal syndrome. Creatinine 4.06 on admission - stable at 3.87 yesterday. Right kidney atrophic. No hydronephrosis noted. Possible chronic bladder outlet obstruction. 2. 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 3. Volume overload. Improving with diuresis. 4. Acute on chronic diastolic CHF. 5. Metabolic acidosis secondary to acute kidney injury. On oral bicarb. Stable. 6. Hypertension with chronic kidney disease. Blood pressure high. 7. Diabetes mellitus. 8. Pancytopenia with hx of MGUS. Iron deficiency noted. Status post IV iron. Iron levels improved. Hematology following. 9. Hypomagnesemia from diuresis. Replaced. Plan: Change IV Lasix to torsemide 40 mg once daily. 1500 mL fluid restriction and low-salt diet. Continue to hold losartan for now. Increase dose of doxazosin. Patient was referred for renal replacement therapy education outpatient but has not attended. Continue to assess daily for need for renal replacement therapy. No urgency at this time.
[2022-06-14] MEDS: TORSEMIDE 20 MG TAB PO SCH (10:56)
[2022-06-14 11:12] LABS: Free Lambda Lt Chain Qnt, Seru 1.89 mg/dL (0.57-2.63)
[2022-06-14 11:51] LABS: Glucose,Whole Blood 109 mg/dL (70-110)
[2022-06-14 12:33] LABS: HCT 29.7 % (39.0-53.0); HGB 9.5 gm/dL (13.0-17.5); Hypochromasia Slight; MCH 31.3 pg (25.0-35.0); MCHC 32.1 g/dL (31.0-37.0); MCV 97.6 fL (80.0-100.0); Mean Platelet Volume 10.5; Platelet Count 142 k/uL (150-450); RBC 3.05 m/uL (4.30-5.90); RDW 14.9 % (11.5-15.5); WBC 1.1 k/uL (3.8-10.6)
[2022-06-14 12:50] LABS: Eosinophils # (M) 0.04 k/uL (0-0.7); Lymphocytes # (M) 0.56 k/uL (1.0-4.8); Monocytes # (M) 0.09 k/uL (0-1.0); Neutrophils # (M) 0.41 k/uL (1.3-7.7); Neutrophils % (M) 37 %; Nucleated Red Blood Cells 0 /100 WBC (0-0); Total Cells Counted 100
[2022-06-14 13:05] LABS: Potassium 4.3 mmol/L (3.5-5.1)
[2022-06-14 13:06] LABS: Calcium 8.6 mg/dL (8.4-10.2); Magnesium 1.9 mg/dL (1.6-2.3)
[2022-06-14 16:38] LABS: Glucose,Whole Blood 159 mg/dL (70-110)
--- NOTE | 2022-06-14 17:52 | P.PN ---
Subjective Progress Note Date: 06/14/22 87-year-old male with a known history of hypertension, hyperlipidemia, diabetes type 2, chronic kidney disease stage IV and prior history of smoking presents to ER with complaints of shortness of breath. Patient states that he has been having worsening symptoms for the past 3 to 4 weeks and also bilateral lower EXTR and puffiness of the hands. No complaints of chest pain. Denied any complaints of fever or chills. No nausea vomiting abdominal pain or diarrhea. Patient denies any prior history of coronary artery disease. On admission chest x-ray showed there is pulmonary venous congestion with small effusions and cardiomegaly as well as interstitial edema. Correlate for mild CHF. Laboratory data showed WC 1.4 hemoglobin 10.2 and platelets 149 Sodium 141 potassium 4.7 bicarb is 19 BUN 61 creatinine 4.06 and lactic acid less than 0.5 proBNP is 5080 troponin x1 negative liver enzymes are not elevated and coronavirus and influenza a and B and RSV not detected. On admission blood pressure 180/69 pulse is 54 and respiration 26. He was requiring BiPAP in the ER and was transferred to MICU. Objective - Vital Signs Vital signs: Vital Signs Temp 98.3 F 06/14/22 08:00 Pulse 73 06/14/22 11:52 Resp 18 06/14/22 08:00 BP 179/76 06/14/22 08:00 Pulse Ox 97 06/14/22 11:45 FiO2 28 06/13/22 23:40 Intake & Output 06/13/22 06/14/22 06/14/22 18:59 06:59 18:59 Intake Total 420 Output Total 950 1250 300 Balance -530 -1250 -300 Intake: Oral 420 Output: Urine 950 1250 300 Other: Voiding Method Urinal Urinal Urinal - Exam Patient is lying in the bed comfortably, no acute distress, awake alert and oriented.. HEENT: Normocephalic. Neck is supple. Pupils reactive. Nostrils clear. Oral cavity is moist. Neck reveals no JVD, carotid bruits, or thyromegaly. CHEST EXAMINATION: Trachea is central. Symmetrical expansion. Bibasilar minimal crackles and diminished sounds. . No wheezing.. Nonlabored breathing. CARDIAC: Normal S1, S2 with no gallops. No murmurs ABDOMEN: Soft. Bowel sounds present. Nontender. No organomegaly. No abdominal bruits. Extremities: Ankle edema.. No clubbing or cyanosis Neurologically awake, alert, oriented x3 with well-coordinated movements. No focal deficits noted Skin: No rash or skin lesions. Psychiatric: Coperative. Nonsuicidal, Musculoskeletal: No joint swelling or deformity. Normal range of motion. - Labs CBC & Chem 7: 06/14/22 11:29 06/14/22 11:29 Labs: Abnormal Lab Results - Last 24 Hours (Table) 06/13/22 06/13/22 06/13/22 Range/Units 16:55 18:54 18:54 WBC (3.8-10.6) k/uL RBC (4.30-5.90) m/uL Hgb (13.0-17.5) gm/dL Hct (39.0-53.0) % Plt Count (150-450) k/uL POC Glucose (mg/dL) 150 H (70-110) mg/dL TIBC 209 L (228-460) ug/dL % Saturation 72.87 H (15.00-50.00) Transferrin 149.0 L (204.0-354.0) mg/dL Ferritin 618.0 H (22.0-322.0) ng/mL Total Protein (PEP) 5.9 L (6.2-8.2) g/dL IgA (60.0-350.0) mg/dL IgM (40.0-280.0) mg/dL Free [place] LC, Quant 11.50 H (0.33-1.94) mg/dL 06/13/22 06/13/22 06/14/22 Range/Units 18:54 20:08 06:15 WBC (3.8-10.6) k/uL RBC (4.30-5.90) m/uL Hgb (13.0-17.5) gm/dL Hct (39.0-53.0) % Plt Count (150-450) k/uL POC Glucose (mg/dL) 159 H 65 L (70-110) mg/dL TIBC (228-460) ug/dL % Saturation (15.00-50.00) Transferrin (204.0-354.0) mg/dL Ferritin (22.0-322.0) ng/mL Total Protein (PEP) (6.2-8.2) g/dL IgA 31.7 L (60.0-350.0) mg/dL IgM 8.2 L (40.0-280.0) mg/dL Free [place] LC, Quant (0.33-1.94) mg/dL 06/14/22 Range/Units 11:29 WBC 1.1 L* (3.8-10.6) k/uL RBC 3.05 L (4.30-5.90) m/uL Hgb 9.5 L (13.0-17.5) gm/dL Hct 29.7 L (39.0-53.0) % Plt Count 142 L (150-450) k/uL POC Glucose (mg/dL) (70-110) mg/dL TIBC (228-460) ug/dL % Saturation (15.00-50.00) Transferrin (204.0-354.0) mg/dL Ferritin (22.0-322.0) ng/mL Total Protein (PEP) (6.2-8.2) g/dL IgA (60.0-350.0) mg/dL IgM (40.0-280.0) mg/dL Free [place] LC, Quant (0.33-1.94) mg/dL Assessment and Plan Assessment: Acute hypoxic respiratory failure . Off BiPAP. Currently on 4 L oxygen with nasal cannula. Acute CHF with preserved EF.. Due to fluid overload. Acute on chronic kidney disease stage IV likely due to cardiorenal syndrome. Uncontrolled hypertension Diabetes type 2 insulin-dependent Prior history of smoking DVT prophylaxis Heparin subcu Plan: Patient is currently in the MICU.. BiPAP prn. Titrate down oxygen to nasal cannula. Continue with IV Lasix 40 mg twice daily. Patient was started back on Coreg and losartan on hold due to acute kidney injury. Renal ultrasound ordered to ruled out any obstruction. 2D echocardiogram was ordered. Cardiology and nephrology is on board. Prognosis is guarded.
[2022-06-14 19:34] LABS: Albumin 3.57 g/dL (3.80-4.90)
[2022-06-14 20:11] LABS: Glucose,Whole Blood 212 mg/dL (70-110)
[2022-06-14] MEDS: DOXAZOSIN 2 MG TAB PO SCH (20:49)
[2022-06-14] MEDS: INSULIN DETEMIR (LEVEMIR) 100 UNIT/ML SYR SQ SCH (20:49)
[2022-06-14] MEDS: ATORVASTATIN 10 MG TAB PO SCH (20:49)
[2022-06-14] MEDS: LATANOPROST 0.005% OPHTH DROPS 2.5 ML BTL BOTH EYES SCH (20:50)
[2022-06-15] MEDS: HEPARIN SODIUM,PORCINE/PF 5,000 UNIT/0.5 ML SYRINGE SQ SCH ×3 (01:12→16:39)
[2022-06-15] MEDS: IPRATROPIUM-ALBUTEROL 3 ML NEB INHALATION SCH ×6 (03:42→23:35)
[2022-06-15 06:13] LABS: Glucose,Whole Blood 75 mg/dL (70-110)
--- NOTE | 2022-06-15 06:28 | P.PN ---
Subjective Progress Note Date: 06/15/22 Principal diagnosis: Heart failure with preserved ejection fraction The patient is an 87-year-old gentleman with a past medical history significant for diabetes and hypertension and dyslipidemia who presented to the emergency department complaining of shortness of breath. The patient somewhat is a poor historian. He stated that the shortness of breath started about 4 weeks ago and it was associated lately with bilateral lower except his edema. No fever no chills. No cough or sputum production. No symptoms of chest pain or chest discomfort. He presented to the emergency department where he underwent an investigation including a chest x-ray which showed evidence of heart failure/pulmonary congestion. He underwent an NT proBNP which came in to be elevated. Beside that his creatinine when he presented was 5.6 with a baseline creatinine from 2020 of 3.8. The patient was started on Lasix and he was admitted to the intensive care unit. He was started also on BiPAP. When he was seen and evaluated this morning he does have bilateral lower extremities edema which apparently has improved overnight on Lasix IV. He also does have bilateral expiratory wheezing/diminished breathing sounds bilaterally. He was in mild heart failure when he was seen this morning. Otherwise he is hemodynamically stable. No history of congestive heart failure according to him. No history of coronary artery disease and no history of cardiac arrhythmia. He does have diabetes and hypertension and dyslipidemia and also he does have carotid atherosclerosis with prior carotid endarterectomy. He follows with a vascular surgeon regularly according to him. June 122021 The patient was seen this morning. Overall is feeling better but he states that the shortness of breath has improved. He lower extremities edema has improved as well. He underwent an echo which revealed preserved left ventricle systolic function was mild concentric left ventricular hypertrophy. He continues to be on Lasix IV. The kidney function continues to be stable. Nephrology service is on the case as well. June 142021 The patient was seen this morning. He continues to be short of breath. He stated "I feel the same". Chest x-ray was performed yesterday continues to show findings consistent with heart failure. Currently he is on Lasix IV. We don't have kidney function as of yet this morning. Beside that he has pancytopenia and hematology was consulted to see him. An ultrasound of the abdomen to check liver and spleen is in process to be done. I would advise continue the patient on Lasix IV if the creatinine continues to be stable. Nephrology is on the case as well June [id number] The patient was seen and evaluated this morning. He states the shortness of breath has improved. He continues to be on 4 L. On examination he does have diminished breathing sounds bilaterally but no crackles here. No lower extremities edema noted. Creatinine is a slightly worse. Currently he is on by mouth diuretics. He is not on IV diuretics and more which I would agree on. Objective - Vital Signs Vital signs: Vital Signs Temp 98.3 F 06/15/22 03:45 Pulse 69 06/15/22 03:54 Resp 16 06/15/22 03:45 BP 145/65 06/15/22 03:45 Pulse Ox 96 06/15/22 03:45 FiO2 28 06/13/22 23:40 Intake & Output 06/14/22 06/14/22 06/15/22 06:59 18:59 06:59 Intake Total 10 Output Total 1250 800 950 Balance -1250 -800 -940 Intake: IV 10 Invasive Line 1 10 Output: Urine 1250 800 950 Other: Voiding Method Urinal Urinal Urinal - Constitutional General appearance: Present: no acute distress - Respiratory Respiratory: bilateral: diminished - Cardiovascular Rhythm: regular - Labs CBC & Chem 7: 06/14/22 11:29 06/14/22 11:29 Labs: Abnormal Lab Results - Last 24 Hours (Table) 06/13/22 06/14/22 06/14/22 Range/Units 18:54 11:29 11:29 WBC 1.1 L* (3.8-10.6) k/uL RBC 3.05 L (4.30-5.90) m/uL Hgb 9.5 L (13.0-17.5) gm/dL Hct 29.7 L (39.0-53.0) % Plt Count 142 L (150-450) k/uL Neutrophils # (Manual) 0.41 L* (1.3-7.7) k/uL Lymphocytes # (Manual) 0.56 L (1.0-4.8) k/uL BUN 62 H (9-20) mg/dL Creatinine 4.12 H (0.66-1.25) mg/dL Glucose 111 H (74-99) mg/dL POC Glucose (mg/dL) (70-110) mg/dL Albumin (PEP) 3.57 L (3.80-4.90) g/dL Beta Globulins 0.48 L (0.60-1.30) g/dL Free [place] LC, Quant 11.50 H (0.33-1.94) mg/dL 06/14/22 06/14/22 Range/Units 16:36 20:09 WBC (3.8-10.6) k/uL RBC (4.30-5.90) m/uL Hgb (13.0-17.5) gm/dL Hct (39.0-53.0) % Plt Count (150-450) k/uL Neutrophils # (Manual) (1.3-7.7) k/uL Lymphocytes # (Manual) (1.0-4.8) k/uL BUN (9-20) mg/dL Creatinine (0.66-1.25) mg/dL Glucose (74-99) mg/dL POC Glucose (mg/dL) 159 H 212 H (70-110) mg/dL Albumin (PEP) (3.80-4.90) g/dL Beta Globulins (0.60-1.30) g/dL Free [place] LC, Quant (0.33-1.94) mg/dL Assessment and Plan Assessment: Assessment Heart failure with evidence of biventricular failure with heart failure related to preserved ejection fraction Acute on chronic renal failure Diabetes type 2 Hypertension Dyslipidemia Pancytopenia Plan Agree about switching the patient to by mouth diuretics Continue monitor the kidney function and electrolytes Follow-up with the patient
[2022-06-15] MEDS: PANTOPRAZOLE 40 MG TABLET PO SCH ×2 (06:44→16:39)
[2022-06-15] MEDS: DOXAZOSIN 2 MG TAB PO SCH ×2 (08:30→21:08)
[2022-06-15] MEDS: allopurinoL 100 MG TAB PO SCH (08:30)
[2022-06-15] MEDS: MAGNESIUM OXIDE 400 MG TAB PO SCH (08:30)
[2022-06-15] MEDS: TORSEMIDE 20 MG TAB PO SCH (08:30)
[2022-06-15] MEDS: SODIUM BICARBONATE TAB 650 MG TAB PO SCH ×2 (08:30→21:08)
[2022-06-15] MEDS: amLODIPine 5 MG TAB PO SCH ×2 (08:31→21:08)
--- NOTE | 2022-06-15 10:42 | P.PN ---
Subjective Patient is seen in follow-up for acute kidney injury on chronic kidney disease. Renal function fairly stable. Currently on 4 L nasal cannula. Blood pressure on the higher side. Nonoliguric. Being diuresed. Switch to oral diuretics yesterday. Objective - Vital Signs Vital signs: Vital Signs Temp 98.3 F 06/15/22 03:45 Pulse 72 06/15/22 08:56 Resp 16 06/15/22 03:45 BP 145/65 06/15/22 03:45 Pulse Ox 96 06/15/22 03:45 FiO2 28 06/13/22 23:40 Intake & Output 06/14/22 06/15/22 06/15/22 18:59 06:59 18:59 Intake Total 10 Output Total 800 950 Balance -800 -940 Intake: IV 10 Invasive Line 1 10 Output: Urine 800 950 Other: Voiding Method Urinal Urinal - Exam Awake, comfortable, not in any acute distress Examination of the heart S1 and S2 Examination lungs decreased breath sounds at the bases no crackles or wheezing is heard Abdomen is soft nontender Examination of lower extremities shows no evidence of edema [employer] exam grossly intact - Labs CBC & Chem 7: 06/14/22 11:29 06/14/22 11:29 Labs: Abnormal Lab Results - Last 24 Hours (Table) 06/13/22 06/14/22 06/14/22 Range/Units 18:54 11:29 11:29 WBC 1.1 L* (3.8-10.6) k/uL RBC 3.05 L (4.30-5.90) m/uL Hgb 9.5 L (13.0-17.5) gm/dL Hct 29.7 L (39.0-53.0) % Plt Count 142 L (150-450) k/uL Neutrophils # (Manual) 0.41 L* (1.3-7.7) k/uL Lymphocytes # (Manual) 0.56 L (1.0-4.8) k/uL BUN 62 H (9-20) mg/dL Creatinine 4.12 H (0.66-1.25) mg/dL Glucose 111 H (74-99) mg/dL POC Glucose (mg/dL) (70-110) mg/dL Albumin (PEP) 3.57 L (3.80-4.90) g/dL Beta Globulins 0.48 L (0.60-1.30) g/dL Free [place] LC, Quant 11.50 H (0.33-1.94) mg/dL 06/14/22 06/14/22 Range/Units 16:36 20:09 WBC (3.8-10.6) k/uL RBC (4.30-5.90) m/uL Hgb (13.0-17.5) gm/dL Hct (39.0-53.0) % Plt Count (150-450) k/uL Neutrophils # (Manual) (1.3-7.7) k/uL Lymphocytes # (Manual) (1.0-4.8) k/uL BUN (9-20) mg/dL Creatinine (0.66-1.25) mg/dL Glucose (74-99) mg/dL POC Glucose (mg/dL) 159 H 212 H (70-110) mg/dL Albumin (PEP) (3.80-4.90) g/dL Beta Globulins (0.60-1.30) g/dL Free [place] LC, Quant (0.33-1.94) mg/dL Assessment and Plan Assessment: 1. Acute kidney injury secondary to ATN secondary to cardiorenal syndrome. Creatinine 4.06 on admission - stable at 3.87 yesterday. Right kidney atrophic. No hydronephrosis noted. Possible chronic bladder outlet obstruction. 2. 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 3. Volume overload. Improving with diuresis. 4. Acute on chronic diastolic CHF. 5. Metabolic acidosis secondary to acute kidney injury. On oral bicarb. Stable. 6. Hypertension with chronic kidney disease. Blood pressure high. 7. Diabetes mellitus. 8. Pancytopenia with hx of MGUS. Iron deficiency noted. Status post IV iron. Iron levels improved. Hematology following. 9. Hypomagnesemia from diuresis. Replaced. Plan: Continue with oral diuretics No plans for urgent renal replacement therapy. Follow-up as outpatient in 1 week's time
[2022-06-15 10:46] LABS: Calcium 8.4 mg/dL (8.4-10.2); Magnesium 1.9 mg/dL (1.6-2.3); Potassium 4.4 mmol/L (3.5-5.1)
[2022-06-15 14:21] LABS: HCT 29.5 % (39.0-53.0); HGB 9.5 gm/dL (13.0-17.5); Hypochromasia Moderate; MCH 31.8 pg (25.0-35.0); MCHC 32.2 g/dL (31.0-37.0); MCV 98.9 fL (80.0-100.0); Mean Platelet Volume 9.9; Platelet Count 122 k/uL (150-450); RBC 2.98 m/uL (4.30-5.90); RDW 14.4 % (11.5-15.5)
[2022-06-15 14:59] LABS: WBC 1.1 k/uL (3.8-10.6)
--- NOTE | 2022-06-15 15:37 | P.PN ---
Subjective Progress Note Date: 06/15/22 Principal diagnosis: Acute hypoxemic respiratory failure Acute exacerbation CHF with preserved EF Acute on chronic kidney disease stage IV; likely cardiorenal syndrome Uncontrolled hypertension 87-year-old male with a known history of hypertension, hyperlipidemia, diabetes type 2, chronic kidney disease stage IV and prior history of smoking presents to ER with complaints of shortness of breath. Patient states that he has been having worsening symptoms for the past 3 to 4 weeks and also bilateral lower EXTR and puffiness of the hands. No complaints of chest pain. Denied any complaints of fever or chills. No nausea vomiting abdominal pain or diarrhea. Patient denies any prior history of coronary artery disease. On admission chest x-ray showed there is pulmonary venous congestion with small effusions and cardiomegaly as well as interstitial edema. Correlate for mild CHF. Laboratory data showed WC 1.4 hemoglobin 10.2 and platelets 149 Sodium 141 potassium 4.7 bicarb is 19 BUN 61 creatinine 4.06 and lactic acid less than 0.5 proBNP is 5080 troponin x1 negative liver enzymes are not elevated and coronavirus and influenza a and B and RSV not detected. On admission blood pressure 180/69 pulse is 54 and respiration 26. He was requiring BiPAP in the ER and was transferred to MICU. 06/15/2022 Patient is seen and evaluated with family members at bedside; reports improvement in breathing; currently on O2 at 4 L per nasal cannula with O2 saturation above 95% -- vital signs are reviewed, temperature 98.3, pulse 69, respirations 16 and blood pressure of 145/65 Cardiology is following, patient has been transitioned to oral diuretic therapy in form of torsemide 40 mg daily; cardiology is agreeable - Creatinine slightly worse this morning; nephrology on board; we'll plan for urgent renal replacement therapy Objective - Vital Signs Vital signs: Vital Signs Temp 98.3 F 06/15/22 03:45 Pulse 72 06/15/22 08:56 Resp 16 06/15/22 03:45 BP 145/65 06/15/22 03:45 Pulse Ox 96 06/15/22 03:45 FiO2 28 06/13/22 23:40 Intake & Output 06/14/22 06/15/22 06/15/22 18:59 06:59 18:59 Intake Total 10 Output Total 800 950 Balance -800 -940 Intake: IV 10 Invasive Line 1 10 Output: Urine 800 950 Other: Voiding Method Urinal Urinal - Exam Patient is lying in the bed comfortably, no acute distress, awake alert and oriented.. HEENT: Normocephalic. Neck is supple. Pupils reactive. Nostrils clear. Oral cavity is moist. Neck reveals no JVD, carotid bruits, or thyromegaly. CHEST EXAMINATION: Trachea is central. Symmetrical expansion. Bibasilar minimal crackles and diminished sounds. . No wheezing.. Nonlabored breathing. CARDIAC: Normal S1, S2 with no gallops. No murmurs ABDOMEN: Soft. Bowel sounds present. Nontender. No organomegaly. No abdominal bruits. Extremities: Ankle edema.. No clubbing or cyanosis Neurologically awake, alert, oriented x3 with well-coordinated movements. No focal deficits noted Skin: No rash or skin lesions. Psychiatric: Coperative. Nonsuicidal, Musculoskeletal: No joint swelling or deformity. Normal range of motion. - Labs CBC & Chem 7: 06/15/22 13:59 06/15/22 09:03 Labs: Abnormal Lab Results - Last 24 Hours (Table) 06/13/22 06/14/22 06/14/22 Range/Units 18:54 11:29 11:29 WBC 1.1 L* (3.8-10.6) k/uL RBC 3.05 L (4.30-5.90) m/uL Hgb 9.5 L (13.0-17.5) gm/dL Hct 29.7 L (39.0-53.0) % Plt Count 142 L (150-450) k/uL Neutrophils # (Manual) 0.41 L* (1.3-7.7) k/uL Lymphocytes # (Manual) 0.56 L (1.0-4.8) k/uL BUN 62 H (9-20) mg/dL Creatinine 4.12 H (0.66-1.25) mg/dL Glucose 111 H (74-99) mg/dL POC Glucose (mg/dL) (70-110) mg/dL Albumin (PEP) 3.57 L (3.80-4.90) g/dL Beta Globulins 0.48 L (0.60-1.30) g/dL Free [place] LC, Quant 11.50 H (0.33-1.94) mg/dL 06/14/22 06/14/22 Range/Units 16:36 20:09 WBC (3.8-10.6) k/uL RBC (4.30-5.90) m/uL Hgb (13.0-17.5) gm/dL Hct (39.0-53.0) % Plt Count (150-450) k/uL Neutrophils # (Manual) (1.3-7.7) k/uL Lymphocytes # (Manual) (1.0-4.8) k/uL BUN (9-20) mg/dL Creatinine (0.66-1.25) mg/dL Glucose (74-99) mg/dL POC Glucose (mg/dL) 159 H 212 H (70-110) mg/dL Albumin (PEP) (3.80-4.90) g/dL Beta Globulins (0.60-1.30) g/dL Free [place] LC, Quant (0.33-1.94) mg/dL Assessment and Plan Assessment: Acute hypoxic respiratory failure . Off BiPAP. Currently on 4 L oxygen with nasal cannula. Acute CHF with preserved EF.. Due to fluid overload. Acute on chronic kidney disease stage IV likely due to cardiorenal syndrome. Uncontrolled hypertension Diabetes type 2 insulin-dependent Prior history of smoking DVT prophylaxis Heparin subcu Plan: Patient is currently in the MICU.. BiPAP prn. Titrate down oxygen to nasal cannula. Continue with IV Lasix 40 mg twice daily. Patient was started back on Coreg and losartan on hold due to acute kidney i njury. Renal ultrasound ordered to ruled out any obstruction. 2D echocardiogram was ordered. Cardiology and nephrology is on board. Prognosis is guarded.
[2022-06-15 15:48] LABS: Neutrophils % (M) 34 %
[2022-06-15 15:56] LABS: Eosinophils # (M) 0.03 k/uL (0-0.7); Lymphocytes # (M) 0.62 k/uL (1.0-4.8); Monocytes # (M) 0.08 k/uL (0-1.0); Neutrophils # (M) 0.37 k/uL (1.3-7.7); Nucleated Red Blood Cells 0 /100 WBC (0-0); Total Cells Counted 100
[2022-06-15 15:57] LABS: Large Platelets Present
[2022-06-15 17:05] LABS: Glucose,Whole Blood 192 mg/dL (70-110)
[2022-06-15 20:00] LABS: Glucose,Whole Blood 158 mg/dL (70-110)
[2022-06-15] MEDS: INSULIN DETEMIR (LEVEMIR) 100 UNIT/ML SYR SQ SCH (20:12)
[2022-06-15] MEDS: ATORVASTATIN 10 MG TAB PO SCH (21:08)
[2022-06-15] MEDS: LATANOPROST 0.005% OPHTH DROPS 2.5 ML BTL BOTH EYES SCH (21:08)
[2022-06-16] MEDS: HEPARIN SODIUM,PORCINE/PF 5,000 UNIT/0.5 ML SYRINGE SQ SCH ×3 (00:38→16:49)
[2022-06-16] MEDS: IPRATROPIUM-ALBUTEROL 3 ML NEB INHALATION SCH ×7 (03:58→23:38)
[2022-06-16 06:19] LABS: Glucose,Whole Blood 91 mg/dL (70-110)
--- NOTE | 2022-06-16 06:26 | P.PN ---
Subjective Progress Note Date: 06/16/22 Principal diagnosis: Heart failure with preserved ejection fraction The patient is an 87-year-old gentleman with a past medical history significant for diabetes and hypertension and dyslipidemia who presented to the emergency department complaining of shortness of breath. The patient somewhat is a poor historian. He stated that the shortness of breath started about 4 weeks ago and it was associated lately with bilateral lower except his edema. No fever no chills. No cough or sputum production. No symptoms of chest pain or chest discomfort. He presented to the emergency department where he underwent an investigation including a chest x-ray which showed evidence of heart failure/pulmonary congestion. He underwent an NT proBNP which came in to be elevated. Beside that his creatinine when he presented was 5.6 with a baseline creatinine from 2020 of 3.8. The patient was started on Lasix and he was admitted to the intensive care unit. He was started also on BiPAP. When he was seen and evaluated this morning he does have bilateral lower extremities edema which apparently has improved overnight on Lasix IV. He also does have bilateral expiratory wheezing/diminished breathing sounds bilaterally. He was in mild heart failure when he was seen this morning. Otherwise he is hemodynamically stable. No history of congestive heart failure according to him. No history of coronary artery disease and no history of cardiac arrhythmia. He does have diabetes and hypertension and dyslipidemia and also he does have carotid atherosclerosis with prior carotid endarterectomy. He follows with a vascular surgeon regularly according to him. June 122021 The patient was seen this morning. Overall is feeling better but he states that the shortness of breath has improved. He lower extremities edema has improved as well. He underwent an echo which revealed preserved left ventricle systolic function was mild concentric left ventricular hypertrophy. He continues to be on Lasix IV. The kidney function continues to be stable. Nephrology service is on the case as well. June 142021 The patient was seen this morning. He continues to be short of breath. He stated "I feel the same". Chest x-ray was performed yesterday continues to show findings consistent with heart failure. Currently he is on Lasix IV. We don't have kidney function as of yet this morning. Beside that he has pancytopenia and hematology was consulted to see him. An ultrasound of the abdomen to check liver and spleen is in process to be done. I would advise continue the patient on Lasix IV if the creatinine continues to be stable. Nephrology is on the case as well June 152021 The patient was seen and evaluated this morning. He states the shortness of breath has improved. He continues to be on 4 L. On examination he does have diminished breathing sounds bilaterally but no crackles here. No lower extremities edema noted. Creatinine is a slightly worse. Currently he is on by mouth diuretics. He is not on IV diuretics and more which I would agree on. 06/16/2022 The patient was seen and evaluated and examined this morning. He feels that the shortness of breath has improved but he continues to be on oxygen at 4 L to maintain saturation above 90%. The lower extremities edema has improved significantly. Overall he put out about 600 mL of urine overnight. The creatinine continues to be going up. Nephrology is on the case and there is high chance that he might need to undergo dialysis. On examination he continues to have crackles bilaterally. No lower extremities edema noted on exam today. Meanwhile the pressure continues to be elevated and for that reason I'm going to start the patient on hydralazine 25 mg by mouth 3 times a day. Objective - Vital Signs Vital signs: Vital Signs Temp 98.0 F 06/16/22 04:00 Pulse 82 06/16/22 04:00 Resp 18 06/16/22 04:00 BP 164/63 06/16/22 04:00 Pulse Ox 95 06/16/22 04:00 FiO2 28 06/13/22 23:40 Intake & Output 06/15/22 06/15/22 06/16/22 06:59 18:59 06:59 Intake Total 10 Output Total 950 250 Balance -940 -250 Intake: IV 10 Invasive Line 1 10 Output: Urine 950 250 Other: Voiding Method Urinal Urinal # Voids 2 - Constitutional General appearance: Present: no acute distress - Respiratory Respiratory: bilateral: rales - Cardiovascular Rhythm: regular Heart sounds: normal: S1, S2 Abnormal Heart Sounds: Present: systolic murmur - Labs CBC & Chem 7: 06/15/22 13:59 06/15/22 09:03 Labs: Abnormal Lab Results - Last 24 Hours (Table) 06/15/22 06/15/22 06/15/22 Range/Units 09:03 13:59 17:03 WBC 1.1 L* (3.8-10.6) k/uL RBC 2.98 L (4.30-5.90) m/uL Hgb 9.5 L (13.0-17.5) gm/dL Hct 29.5 L (39.0-53.0) % Plt Count 122 L (150-450) k/uL Neutrophils # (Manual) 0.37 L* (1.3-7.7) k/uL Lymphocytes # (Manual) 0.62 L (1.0-4.8) k/uL BUN 60 H (9-20) mg/dL Creatinine 4.22 H (0.66-1.25) mg/dL Glucose 181 H (74-99) mg/dL POC Glucose (mg/dL) 192 H (70-110) mg/dL 06/15/22 Range/Units 19:58 WBC (3.8-10.6) k/uL RBC (4.30-5.90) m/uL Hgb (13.0-17.5) gm/dL Hct (39.0-53.0) % Plt Count (150-450) k/uL Neutrophils # (Manual) (1.3-7.7) k/uL Lymphocytes # (Manual) (1.0-4.8) k/uL BUN (9-20) mg/dL Creatinine (0.66-1.25) mg/dL Glucose (74-99) mg/dL POC Glucose (mg/dL) 158 H (70-110) mg/dL Assessment and Plan Assessment: Assessment Heart failure with evidence of biventricular failure with heart failure related to preserved ejection fraction Acute on chronic renal failure Diabetes type 2 Hypertension Dyslipidemia Pancytopenia Plan Add hydralazine at 25 mg by mouth 3 times a day to the current medical regimen Continue the rest of the current medical regimen Overall the patient is not doing well from the renal standpoint overview Continue monitor the kidney function and electrolytes and urine output Follow-up with the patient
[2022-06-16] MEDS: PANTOPRAZOLE 40 MG TABLET PO SCH ×2 (06:43→16:49)
[2022-06-16 06:57] LABS: Albumin 3.4 g/dL (3.5-5.0); Calcium 8.4 mg/dL (8.4-10.2); Potassium 4.6 mmol/L (3.5-5.1); Total Bilirubin 0.6 mg/dL (0.2-1.3); Total Protein 5.7 g/dL (6.3-8.2)
[2022-06-16 07:02] LABS: HCT 28.2 % (39.0-53.0); HGB 8.9 gm/dL (13.0-17.5); Hypochromasia Slight; MCHC 31.4 g/dL (31.0-37.0); MCV 98.8 fL (80.0-100.0); Mean Platelet Volume 9.9; Platelet Count 145 k/uL (150-450); RBC 2.86 m/uL (4.30-5.90); RDW 14.5 % (11.5-15.5)
[2022-06-16 07:59] LABS: WBC 1.2 k/uL (3.8-10.6)
[2022-06-16] MEDS ORDERED: hydrALAZINE HCL 25 MG TAB PO SCH (09:00)
[2022-06-16 09:52] LABS: Neutrophils % (M) 21 %
[2022-06-16 09:53] LABS: Basophils # (M) 0.01 k/uL (0-0.2); Eosinophils # (M) 0.06 k/uL (0-0.7); Lymphocytes # (M) 0.56 k/uL (1.0-4.8); Monocytes # (M) 0.31 k/uL (0-1.0); Neutrophils # (M) 0.25 k/uL (1.3-7.7); Nucleated Red Blood Cells 0 /100 WBC (0-0); Total Cells Counted 100
[2022-06-16] MEDS ORDERED: NON FORMULARY DRUG (Dulaglutide [Trulicity] 1.5 MG/0.5 ML Each) SQ SCH (10:03)
[2022-06-16] MEDS: allopurinoL 100 MG TAB PO SCH (10:11)
[2022-06-16] MEDS: hydrALAZINE HCL 25 MG TAB PO SCH ×3 (10:12→20:55)
[2022-06-16] MEDS: amLODIPine 5 MG TAB PO SCH ×2 (10:12→20:56)
[2022-06-16] MEDS: DOXAZOSIN 2 MG TAB PO SCH ×2 (10:12→20:56)
[2022-06-16] MEDS: TORSEMIDE 20 MG TAB PO SCH (10:12)
[2022-06-16] MEDS: MAGNESIUM OXIDE 400 MG TAB PO SCH (10:12)
--- NOTE | 2022-06-16 10:43 | P.PN ---
Subjective Patient is seen in follow-up for acute kidney injury on chronic kidney disease. Renal function fairly stable. Currently on 4 L nasal cannula. Blood pressure on the higher side. Nonoliguric. Being diuresed. Currently on oral diuretics Serum creatinine fairly stable at 4.2 24 hour urine output at 1.7 L Objective - Vital Signs Vital signs: Vital Signs Temp 97.9 F 06/16/22 08:00 Pulse 76 06/16/22 08:00 Resp 18 06/16/22 08:00 BP 162/57 06/16/22 08:00 Pulse Ox 95 06/16/22 08:00 FiO2 28 06/13/22 23:40 Intake & Output 06/15/22 06/16/22 06/16/22 18:59 06:59 18:59 Output Total 250 Balance -250 Output: Urine 250 Other: Voiding Method Urinal # Voids 2 - Exam Awake, comfortable, not in any acute distress Examination of the heart S1 and S2 Examination lungs decreased breath sounds at the bases no crackles or wheezing is heard Abdomen is soft nontender Examination of lower extremities shows no evidence of edema SUPERINTENDENT SERVICE exam grossly intact - Labs CBC & Chem 7: 06/16/22 05:36 06/16/22 05:36 Labs: Abnormal Lab Results - Last 24 Hours (Table) 06/15/22 06/15/22 06/15/22 Range/Units 09:03 13:59 17:03 WBC 1.1 L* (3.8-10.6) k/uL RBC 2.98 L (4.30-5.90) m/uL Hgb 9.5 L (13.0-17.5) gm/dL Hct 29.5 L (39.0-53.0) % Plt Count 122 L (150-450) k/uL Neutrophils # (Manual) 0.37 L* (1.3-7.7) k/uL Lymphocytes # (Manual) 0.62 L (1.0-4.8) k/uL BUN 60 H (9-20) mg/dL Creatinine 4.22 H (0.66-1.25) mg/dL Glucose 181 H (74-99) mg/dL POC Glucose (mg/dL) 192 H (70-110) mg/dL Total Protein (6.3-8.2) g/dL Albumin (3.5-5.0) g/dL 06/15/22 06/16/22 06/16/22 Range/Units 19:58 05:36 05:36 WBC 1.2 L* (3.8-10.6) k/uL RBC 2.86 L (4.30-5.90) m/uL Hgb 8.9 L (13.0-17.5) gm/dL Hct 28.2 L (39.0-53.0) % Plt Count 145 L (150-450) k/uL Neutrophils # (Manual) 0.25 L* (1.3-7.7) k/uL Lymphocytes # (Manual) 0.56 L (1.0-4.8) k/uL BUN 58 H (9-20) mg/dL Creatinine 4.21 H (0.66-1.25) mg/dL Glucose (74-99) mg/dL POC Glucose (mg/dL) 158 H (70-110) mg/dL Total Protein 5.7 L (6.3-8.2) g/dL Albumin 3.4 L (3.5-5.0) g/dL Assessment and Plan Assessment: 1. Acute kidney injury secondary to ATN secondary to cardiorenal syndrome. Creatinine staying at around 4-4.2 mg/dL. Right kidney atrophic. No hydronephrosis noted. Possible chronic bladder outlet obstruction. 2. 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 3. Volume overload. Improving with diuresis. 4. Acute on chronic diastolic CHF. 5. Metabolic acidosis secondary to acute kidney injury. On oral bicarb. Stable. 6. Hypertension with chronic kidney disease. Blood pressure high. 7. Diabetes mellitus. 8. Pancytopenia with hx of MGUS. Iron deficiency noted. Status post IV iron. Iron levels improved. Hematology following. 9. Hypomagnesemia from diuresis. Replaced. Plan: Continue with Demadex Follow-up as outpatient in about 1 week's time Renal replacement therapy education as outpatient No plans for urgent dialysis at this point.
[2022-06-16 11:37] LABS: Glucose,Whole Blood 136 mg/dL (70-110)
[2022-06-16] MEDS: SODIUM BICARBONATE TAB 650 MG TAB PO SCH (15:35)
[2022-06-16 16:16] LABS: Glucose,Whole Blood 152 mg/dL (70-110)
--- NOTE | 2022-06-16 17:44 | P.PN ---
Subjective Progress Note Date: 06/16/22 Principal diagnosis: Acute hypoxemic respiratory failure Acute exacerbation CHF with preserved EF Acute on chronic kidney disease stage IV; likely cardiorenal syndrome Uncontrolled hypertension 87-year-old male with a known history of hypertension, hyperlipidemia, diabetes type 2, chronic kidney disease stage IV and prior history of smoking presents to ER with complaints of shortness of breath. Patient states that he has been having worsening symptoms for the past 3 to 4 weeks and also bilateral lower EXTR and puffiness of the hands. No complaints of chest pain. Denied any complaints of fever or chills. No nausea vomiting abdominal pain or diarrhea. Patient denies any prior history of coronary artery disease. On admission chest x-ray showed there is pulmonary venous congestion with small effusions and cardiomegaly as well as interstitial edema. Correlate for mild CHF. Laboratory data showed WC 1.4 hemoglobin 10.2 and platelets 149 Sodium 141 potassium 4.7 bicarb is 19 BUN 61 creatinine 4.06 and lactic acid less than 0.5 proBNP is 5080 troponin x1 negative liver enzymes are not elevated and coronavirus and influenza a and B and RSV not detected. On admission blood pressure 180/69 pulse is 54 and respiration 26. He was requiring BiPAP in the ER and was transferred to MICU. 06/15/2022 Patient is seen and evaluated with family members at bedside; reports improvement in breathing; currently on O2 at 4 L per nasal cannula with O2 saturation above 95% -- vital signs are reviewed, temperature 98.3, pulse 69, respirations 16 and blood pressure of 145/65 Cardiology is following, patient has been transitioned to oral diuretic therapy in form of torsemide 40 mg daily; cardiology is agreeable - Creatinine slightly worse this morning; nephrology on board; we'll plan for urgent renal replacement therapy 06/16/2022 Patient is seen and evaluated with family members at bedside; denies any specific complaints Vital signs are reviewed; blood pressure remains elevated Patient has been evaluated by cardiology and is recommended hydralazine for uncontrolled hypertension; patient remains on torsemide 40 mg twice a day; we will continue to monitor strict STEVEN's and daily weights with renal function and electrolytes Possible discharge in next 24 hours if patient remains stable Objective - Vital Signs Vital signs: Vital Signs Temp 97.9 F 06/16/22 08:00 Pulse 74 06/16/22 08:00 Resp 18 06/16/22 08:00 BP 162/57 06/16/22 08:00 Pulse Ox 95 06/16/22 08:00 FiO2 28 06/13/22 23:40 Intake & Output 06/15/22 06/16/22 06/16/22 18:59 06:59 18:59 Output Total 250 Balance -250 Output: Urine 250 Other: Voiding Method Urinal # Voids 2 - Exam Patient is lying in the bed comfortably, no acute distress, awake alert and oriented.. HEENT: Normocephalic. Neck is supple. Pupils reactive. Nostrils clear. Oral cavity is moist. Neck reveals no JVD, carotid bruits, or thyromegaly. CHEST EXAMINATION: Trachea is central. Symmetrical expansion. Bibasilar minimal crackles and diminished sounds. . No wheezing.. Nonlabored breathing. CARDIAC: Normal S1, S2 with no gallops. No murmurs ABDOMEN: Soft. Bowel sounds present. Nontender. No organomegaly. No abdominal bruits. Extremities: Ankle edema.. No clubbing or cyanosis Neurologically awake, alert, oriented x3 with well-coordinated movements. No focal deficits noted Skin: No rash or skin lesions. Psychiatric: Coperative. Nonsuicidal, Musculoskeletal: No joint swelling or deformity. Normal range of motion. - Labs CBC & Chem 7: 06/16/22 05:36 06/16/22 05:36 Labs: Abnormal Lab Results - Last 24 Hours (Table) 06/15/22 06/15/22 06/15/22 Range/Units 13:59 17:03 19:58 WBC 1.1 L* (3.8-10.6) k/uL RBC 2.98 L (4.30-5.90) m/uL Hgb 9.5 L (13.0-17.5) gm/dL Hct 29.5 L (39.0-53.0) % Plt Count 122 L (150-450) k/uL Neutrophils # (Manual) 0.37 L* (1.3-7.7) k/uL Lymphocytes # (Manual) 0.62 L (1.0-4.8) k/uL BUN (9-20) mg/dL Creatinine (0.66-1.25) mg/dL POC Glucose (mg/dL) 192 H 158 H (70-110) mg/dL Total Protein (6.3-8.2) g/dL Albumin (3.5-5.0) g/dL 06/16/22 06/16/22 Range/Units 05:36 05:36 WBC 1.2 L* (3.8-10.6) k/uL RBC 2.86 L (4.30-5.90) m/uL Hgb 8.9 L (13.0-17.5) gm/dL Hct 28.2 L (39.0-53.0) % Plt Count 145 L (150-450) k/uL Neutrophils # (Manual) 0.25 L* (1.3-7.7) k/uL Lymphocytes # (Manual) 0.56 L (1.0-4.8) k/uL BUN 58 H (9-20) mg/dL Creatinine 4.21 H (0.66-1.25) mg/dL POC Glucose (mg/dL) (70-110) mg/dL Total Protein 5.7 L (6.3-8.2) g/dL Albumin 3.4 L (3.5-5.0) g/dL Assessment and Plan Assessment: Acute hypoxic respiratory failure . Off BiPAP. Currently on 4 L oxygen with nasal cannula. Acute CHF with preserved EF.. Due to fluid overload. Acute on chronic kidney disease stage IV likely due to cardiorenal syndrome. Uncontrolled hypertension Diabetes type 2 insulin-dependent Prior history of smoking DVT prophylaxis Heparin subcu Plan: Patient is currently in the MICU.. BiPAP prn. Titrate down oxygen to nasal cannula. Continue with IV Lasix 40 mg twice daily. Patient was started back on Coreg and losartan on hold due to acute kidney injury. Renal ultrasound ordered to ruled out any obstruction. 2D echocardiogram was ordered. Cardiology and nephrology is on board. Prognosis is guarded.
[2022-06-16 20:08] LABS: Glucose,Whole Blood 209 mg/dL (70-110)
[2022-06-16] MEDS: INSULIN DETEMIR (LEVEMIR) 100 UNIT/ML SYR SQ SCH (20:47)
[2022-06-16] MEDS: LATANOPROST 0.005% OPHTH DROPS 2.5 ML BTL BOTH EYES SCH (20:56)
[2022-06-16] MEDS: ATORVASTATIN 10 MG TAB PO SCH (20:56)
[2022-06-17] MEDS: IPRATROPIUM-ALBUTEROL 3 ML NEB INHALATION SCH ×6 (03:17→23:39)
[2022-06-17] MEDS: HEPARIN SODIUM,PORCINE/PF 5,000 UNIT/0.5 ML SYRINGE SQ SCH ×3 (03:32→16:48)
[2022-06-17 06:22] LABS: Glucose,Whole Blood 116 mg/dL (70-110)
[2022-06-17] MEDS: PANTOPRAZOLE 40 MG TABLET PO SCH ×2 (06:22→16:48)
[2022-06-17] MEDS ORDERED: FUROSEMIDE 10 MG/ML 10 ML VIAL IV STA (07:36)
[2022-06-17] MEDS: MAGNESIUM OXIDE 400 MG TAB PO SCH (08:44)
[2022-06-17] MEDS: TORSEMIDE 20 MG TAB PO SCH (08:44)
[2022-06-17] MEDS: DOXAZOSIN 2 MG TAB PO SCH ×2 (08:45→21:01)
[2022-06-17] MEDS: hydrALAZINE HCL 25 MG TAB PO SCH ×3 (08:45→21:01)
[2022-06-17] MEDS: amLODIPine 5 MG TAB PO SCH ×2 (08:45→21:01)
[2022-06-17] MEDS: allopurinoL 100 MG TAB PO SCH (08:45)
[2022-06-17] MEDS: SODIUM BICARBONATE TAB 650 MG TAB PO SCH (08:45)
[2022-06-17 08:55] LABS: Glucose,Whole Blood 170 mg/dL (70-110)
--- NOTE | 2022-06-17 09:44 | P.PN ---
Subjective Patient is seen in follow-up for acute kidney injury on chronic kidney disease. Renal function fairly stable. Currently on 4 L nasal cannula. Blood pressure on the higher side. Nonoliguric. Being diuresed. Currently on oral diuretics Serum creatinine fairly stable at 4.2 24 hour urine output at 1.7 L This morning patient is complaining of shortness of breath. No chest pain. Objective - Vital Signs Vital signs: Vital Signs Temp 98.2 F 06/17/22 08:00 Pulse 86 06/17/22 08:00 Resp 16 06/17/22 08:00 BP 156/63 06/17/22 08:00 Pulse Ox 95 06/17/22 08:00 FiO2 28 06/13/22 23:40 Intake & Output 06/16/22 06/17/22 06/17/22 18:59 06:59 18:59 Output Total 1150 300 Balance -1150 -300 Output: Urine 1150 300 Other: Voiding Method Urinal # Bowel Movements 1 - Exam Awake, comfortable, not in any acute distress Examination of the heart S1 and S2 Examination lungs decreased breath sounds at the bases , basal crackles heard Abdomen is soft nontender Examination of lower extremities shows no evidence of edema 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 Acute kidney injury secondary to ATN secondary to cardiorenal syndrome. Creatinine staying at around 4-4.2 mg/dL. Right kidney atrophic. No hydronephrosis noted. Possible chronic bladder outlet obstruction. 2. 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 3. Volume overload. Improving with diuresis. Add IV Lasix today 4. Acute on chronic diastolic CHF. 5. Metabolic acidosis secondary to acute kidney injury. On oral bicarb. Stable. 6. Hypertension with chronic kidney disease. Blood pressure high. 7. Diabetes mellitus. 8. Pancytopenia with hx of MGUS. Iron deficiency noted. Status post IV iron. Iron levels improved. Hematology following. 9. Hypomagnesemia from diuresis. Replaced. Plan: IV Lasix 1 Increase oral diuretics Shortness of breath improves later on today patient could be discharged with follow-up in 1 week's time with repeat labs.
--- NOTE | 2022-06-17 11:22 | P.PN ---
Subjective Progress Note Date: 06/17/22 HISTORY OF PRESENT ILLNESS: Heart failure with preserved ejection fraction The patient is an 87-year-old gentleman with a past medical history significant for diabetes and hypertension and dyslipidemia who presented to the emergency department complaining of shortness of breath. The patient somewhat is a poor historian. He stated that the shortness of breath started about 4 weeks ago and it was associated lately with bilateral lower except his edema. No fever no chills. No cough or sputum production. No symptoms of chest pain or chest discomfort. He presented to the emergency department where he underwent an investigation including a chest x-ray which showed evidence of heart failure/pulmonary congestion. He underwent an NT proBNP which came in to be elevated. Beside that his creatinine when he presented was 5.6 with a baseline creatinine from 2020 of 3.8. The patient was started on Lasix and he was admitted to the intensive care unit. He was started also on BiPAP. When he was seen and evaluated this morning he does have bilateral lower extremities edema which apparently has improved overnight on Lasix IV. He also does have bilateral expiratory wheezing/diminished breathing sounds bilaterally. He was in mild heart failure when he was seen this morning. Otherwise he is hemodynamically stable. No history of congestive heart failure according to him. No history of coronary artery disease and no history of cardiac arrhythmia. He does have diabetes and hypertension and dyslipidemia and also he does have carotid atherosclerosis with prior carotid endarterectomy. He follows with a vascular surgeon regularly according to him. June 122021 The patient was seen this morning. Overall is feeling better but he states that the shortness of breath has improved. He lower extremities edema has improved as well. He underwent an echo which revealed preserved left ventricle systolic function was mild concentric left ventricular hypertrophy. He continues to be on Lasix IV. The kidney function continues to be stable. Nephrology service is on the case as well. June 142021 The patient was seen this morning. He continues to be short of breath. He stated "I feel the same". Chest x-ray was performed yesterday continues to show findings consistent with heart failure. Currently he is on Lasix IV. We don't have kidney function as of yet this morning. Beside that he has pancytopenia and hematology was consulted to see him. An ultrasound of the abdomen to check liver and spleen is in process to be done. I would advise continue the patient on Lasix IV if the creatinine continues to be stable. Nephrology is on the case as well June 152021 The patient was seen and evaluated this morning. He states the shortness of breath has improved. He continues to be on 4 L. On examination he does have diminished breathing sounds bilaterally but no crackles here. No lower extremities edema noted. Creatinine is a slightly worse. Currently he is on by mouth diuretics. He is not on IV diuretics and more which I would agree on. 06/16/2022 The patient was seen and evaluated and examined this morning. He feels that the shortness of breath has improved but he continues to be on oxygen at 4 L to maintain saturation above 90%. The lower extremities edema has improved significantly. Overall he put out about 600 mL of urine overnight. The creatinine continues to be going up. Nephrology is on the case and there is high chance that he might need to undergo dialysis. On examination he continues to have crackles bilaterally. No lower extremities edema noted on exam today. Meanwhile the pressure continues to be elevated and for that reason I'm going to start the patient on hydralazine 25 mg by mouth 3 times a day. 06/17/2022 Patient examined this morning at the bedside. Patient denies chest pain or pressure. Denies SOB. He received a dose of IV lasix this morning per nephrology. He is also receiving oral Demadex. He was started on Hydralazine yesterday. His blood pressures have improved, although still elevated with a SBP in the 150s. PHYSICAL EXAM: VITAL SIGNS: Reviewed. GENERAL: Well-developed in no acute distress. NECK: Supple. No JVD or thyromegaly LUNGS: Respirations even and unlabored. Lungs diminished with a few crackles at the bases. HEART: Regular rate and rhythm. S1 and S2 heard. EXTREMITIES: Normal range of motion. No clubbing or cyanosis. Peripheral pulses intact. No lower extremity edema ASSESSMENT: Acute on chronic heart failure with preserved ejection fraction, EF 55% Acute on chronic kidney disease Hypertension Hyperlipidemia Diabetes Pancytopenia with history of MGUS PLAN: Continue current cardiac medications Continue diuresis per nephrology Continue to monitor blood pressure. If blood pressure remains elevated, may adjust dose of hydralazine Losartan remains on hold due to kidney function Patient to follow up outpatient with Dr. Dodson Further recommendations pending patient's course Nurse practitioner note has been reviewed by physician. Signing provider agrees with the documented findings, assessment, and plan of care. Objective - Vital Signs Vital signs: Vital Signs Temp 98.2 F 06/17/22 08:00 Pulse 82 06/17/22 11:11 Resp 16 06/17/22 08:00 BP 156/63 06/17/22 08:00 Pulse Ox 95 06/17/22 08:00 FiO2 28 06/13/22 23:40 Intake & Output 06/16/22 06/17/22 06/17/22 18:59 06:59 18:59 Output Total 1150 300 Balance -1150 -300 Output: Urine 1150 300 Other: Voiding Method Urinal # Bowel Movements 1 - Labs CBC & Chem 7: 06/16/22 05:36 06/16/22 05:36 Labs: Abnormal Lab Results - Last 24 Hours (Table) 06/15/22 06/16/22 06/16/22 Range/Units 11:50 11:36 16:14 POC Glucose (mg/dL) 170 H 136 H 152 H (70-110) mg/dL 06/16/22 06/17/22 Range/Units 20:06 06:21 POC Glucose (mg/dL) 209 H 116 H (70-110) mg/dL
[2022-06-17 11:27] LABS: Glucose,Whole Blood 180 mg/dL (70-110)
--- NOTE | 2022-06-17 12:02 | P.PN ---
Subjective 87-year-old male with a known history of hypertension, hyperlipidemia, diabetes type 2, chronic kidney disease stage IV and prior history of smoking presents to ER with complaints of shortness of breath. Patient states that he has been having worsening symptoms for the past 3 to 4 weeks and also bilateral lower EXTR and puffiness of the hands. No complaints of chest pain. Denied any complaints of fever or chills. No nausea vomiting abdominal pain or diarrhea. Patient denies any prior history of coronary artery disease. On admission chest x-ray showed there is pulmonary venous congestion with small effusions and cardiomegaly as well as interstitial edema. Correlate for mild CHF. Laboratory data showed WC 1.4 hemoglobin 10.2 and platelets 149 Sodium 141 potassium 4.7 bicarb is 19 BUN 61 creatinine 4.06 and lactic acid less than 0.5 proBNP is 5080 troponin x1 negative liver enzymes are not elevated and coronavirus and influenza a and B and RSV not detected. On admission blood pressure 180/69 pulse is 54 and respiration 26. He was requiring BiPAP in the ER and was transferred to MICU. 06/15/2022 Patient is seen and evaluated with family members at bedside; reports improvement in breathing; currently on O2 at 4 L per nasal cannula with O2 saturation above 95% -- vital signs are reviewed, temperature 98.3, pulse 69, respirations 16 and blood pressure of 145/65 Cardiology is following, patient has been transitioned to oral diuretic therapy in form of torsemide 40 mg daily; cardiology is agreeable - Creatinine slightly worse this morning; nephrology on board; we'll plan for urgent renal replacement therapy 06/16/2022 Patient is seen and evaluated with family members at bedside; denies any specific complaints Vital signs are reviewed; blood pressure remains elevated Patient has been evaluated by cardiology and is recommended hydralazine for uncontrolled hypertension; patient remains on torsemide 40 mg twice a day; we will continue to monitor strict STEVEN's and daily weights with renal function and electrolytes Possible discharge in next 24 hours if patient remains stable 06/17/2022 Patient improving breathing and CHF while his on IV diuretics. He got extra doses of IV Lasix today 1, also he was placed on torsemide 80 mg daily. Also his blood pressure is better controlled after noting hydralazine and diur etics, systolic blood pressure is 158/70. Patient still has evidence of pancytopenia with oncology team on the case, workup pending. Patient is aware of both stage IV and advanced kidney disease, and he knows about the recommendation to follow up with bioinformatics specialist in 1 week after discharge and he agreeable. Patient is recommended to go to rehab upon discharge and patient agreeable Objective - Vital Signs Vital signs: Vital Signs Temp 98.2 F 06/17/22 08:00 Pulse 86 06/17/22 08:00 Resp 16 06/17/22 08:00 BP 156/63 06/17/22 08:00 Pulse Ox 95 06/17/22 08:00 FiO2 28 06/13/22 23:40 Intake & Output 06/16/22 06/17/22 06/17/22 18:59 06:59 18:59 Output Total 1150 300 Balance -1150 -300 Output: Urine 1150 300 Other: Voiding Method Urinal # Bowel Movements 1 - Exam -GENERAL: The patient is alert and oriented x3, not in any acute distress. Well developed, well nourished. Generally weak HEENT: Pupils are round and equally reacting to light. EOMI. No scleral icterus. No conjunctival pallor. Normocephalic, atraumatic. No pharyngeal erythema. No thyromegaly. CARDIOVASCULAR: S1 and S2 present. No murmurs, rubs, or gallops. PULMONARY: Chest is clear to auscultation, no wheezing or crackles. ABDOMEN: Soft, nontender, nondistended, normoactive bowel sounds. No palpable organomegaly. MUSCULOSKELETAL: No joint swelling or deformity. EXTREMITIES: No cyanosis, clubbing, or pedal edema. NEUROLOGICAL: Gross neurological examination did not reveal any focal deficits. SKIN: No rashes. no petechiae. - Labs CBC & Chem 7: 06/16/22 05:36 06/16/22 05:36 Labs: Abnormal Lab Results - Last 24 Hours (Table) 06/15/22 06/16/22 06/16/22 Range/Units 11:50 11:36 16:14 POC Glucose (mg/dL) 170 H 136 H 152 H (70-110) mg/dL 06/16/22 06/17/22 Range/Units 20:06 06:21 POC Glucose (mg/dL) 209 H 116 H (70-110) mg/dL Assessment and Plan Assessment: Acute diastolic CHF, with preserved ejection fraction Acute hypoxic respiratory failure secondary to above improvement on 4 L oxygen with nasal cannula. chronic kidney disease stage IV likely due to cardiorenal syndrome. Uncontrolled hypertension, currently better controlled Diabetes type 2 insulin-dependent Prior history of smoking Plan: Patient status post IV Lasix 1 Continue with torsemide, oral hydralazine and Norvasc Continue with insulin Levemir Monitor pancytopenia and follow-up with hematology/oncology team nephrology team has cleared Patient for discharge and follow-up in one week, patient informed and he agrees Labs and medication were reviewed.. Continue same treatment. Continue with symptomatic treatment. Resume home medication. Monitor lytes and vitals. DVT and GI prophylaxis. Further recommendations as per clinical course of the patient DVT prophylaxis: Subcutaneous heparin GI Prophylaxis: Ppi PT/OT: KIERAN Prognosis is guarded
[2022-06-17 16:40] LABS: Glucose,Whole Blood 229 mg/dL (70-110)
--- NOTE | 2022-06-17 19:50 | P.PN ---
Subjective Progress Note Date: 06/17/22 Principal diagnosis: CKD, CHF In f/u today pt states he is feeling pretty good, no fever, SOB, chest pain, abd pain, he is tolerating oral intake, no acute changes in bowel or bladder habits. Objective - Vital Signs Vital signs: Vital Signs Temp 98.2 F 06/17/22 08:00 Pulse 78 06/17/22 16:44 Resp 18 06/17/22 16:00 BP 166/68 06/17/22 16:00 Pulse Ox 93 L 06/17/22 16:00 FiO2 28 06/13/22 23:40 Intake & Output 06/17/22 06/17/22 06/18/22 06:59 18:59 06:59 Output Total 300 Balance -300 Output: Urine 300 Other: Voiding Method Urinal # Voids 1 # Bowel Movements 1 - Constitutional General appearance: Present: average body habitus, cooperative, no acute distress - EENT Eyes: Present: anicteric sclerae, EOMI ENT: Present: hearing grossly normal - Respiratory Details: resp even and unlabored at rest - Integumentary Integumentary: Present: normal - Neurologic Neurologic: Present: CNII-XII intact - Musculoskeletal Musculoskeletal: Present: strength equal bilaterally - Psychiatric Psychiatric: Present: A&O x's 3, appropriate affect, intact judgment & insight - Labs CBC & Chem 7: 06/16/22 05:36 06/16/22 05:36 Labs: Abnormal Lab Results - Last 24 Hours (Table) 06/15/22 06/16/22 06/17/22 Range/Units 11:50 20:06 06:21 POC Glucose (mg/dL) 170 H 209 H 116 H (70-110) mg/dL 06/17/22 06/17/22 Range/Units 11:26 16:39 POC Glucose (mg/dL) 180 H 229 H (70-110) mg/dL - Imaging and Cardiology US - abdomen: report reviewed Assessment and Plan (1) Bicytopenia Current Visit: Yes Status: Chronic Priority: High Code(s): D75.89 - OTHER SPECIFIED DISEASES OF BLOOD AND BLOOD-FORMING ORGANS SNOMED Code(s): 79898632 Plan: MGUS, with acute drop in counts. His mspike is not significantly different then previous 0.6 prev, 0.7 now. He does have progressive renal failure, anemia. Calcium is normal. US abd, no hepatosplenomegaly. WBC affected. Counts not recovering as pt acute condition improves. Bone survey ordered for MM lesions. Transfuse for Hgb<7, plt <10,000.
[2022-06-17] MEDS: INSULIN DETEMIR (LEVEMIR) 100 UNIT/ML SYR SQ SCH (21:01)
[2022-06-17] MEDS: LATANOPROST 0.005% OPHTH DROPS 2.5 ML BTL BOTH EYES SCH (21:01)
[2022-06-17] MEDS: ATORVASTATIN 10 MG TAB PO SCH (21:01)
[2022-06-17 21:10] LABS: Glucose,Whole Blood 164 mg/dL (70-110)
[2022-06-18] MEDS: HEPARIN SODIUM,PORCINE/PF 5,000 UNIT/0.5 ML SYRINGE SQ SCH ×4 (01:50→23:09)
[2022-06-18] MEDS: IPRATROPIUM-ALBUTEROL 3 ML NEB INHALATION SCH ×5 (03:28→19:52)
[2022-06-18 04:33] LABS: Methylmalonic Acid 0.77 umol/L (<0.40)
[2022-06-18] MEDS: PANTOPRAZOLE 40 MG TABLET PO SCH ×2 (06:08→17:20)
[2022-06-18 06:11] LABS: Glucose,Whole Blood 112 mg/dL (70-110)
--- NOTE | 2022-06-18 06:26 | XR ---
EXAMINATION TYPE: XR bone survey complete DATE OF EXAM: 06/17/2022 COMPARISON: NONE HISTORY: Anemia TECHNIQUE: 16 views FINDINGS: Heart is enlarged. There is some pulmonary vascular congestion and blunting of the costophr enic angles. There are spondylotic changes in the cervical spine. The calvarium is intact. The pelvic ring is intact. There are spondylotic changes in the lumbar spine with disc space narrowing from L2 to S1. There is spondylotic changes in the thoracic spine. No significant compression deformity in th e spine. There is left hip prosthesis. There is left knee prosthesis. There is right knee prosthesis. No focal bone destruction. IMPRESSION: No evidence of multiple myeloma. 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 No fracture. Changes in the chest consistent with congestive heart failure. Pleural fluid and pulmonary congestion not significantly different than 06/13/2022 chest x-ray.
[2022-06-18] MEDS ORDERED: hydrALAZINE HCL 50 MG TAB PO SCH (09:00)
[2022-06-18] MEDS: TORSEMIDE 20 MG TAB PO SCH (09:11)
[2022-06-18] MEDS: amLODIPine 5 MG TAB PO SCH ×2 (09:11→20:53)
[2022-06-18] MEDS: MAGNESIUM OXIDE 400 MG TAB PO SCH (09:11)
[2022-06-18] MEDS: DOXAZOSIN 2 MG TAB PO SCH ×2 (09:11→20:53)
[2022-06-18] MEDS: SODIUM BICARBONATE TAB 650 MG TAB PO SCH (09:12)
[2022-06-18] MEDS: allopurinoL 100 MG TAB PO SCH (09:12)
[2022-06-18 10:45] LABS: HCT 29.8 % (39.0-53.0); HGB 9.7 gm/dL (13.0-17.5); Hypochromasia Moderate; MCH 32.1 pg (25.0-35.0); MCHC 32.5 g/dL (31.0-37.0); MCV 98.7 fL (80.0-100.0); Mean Platelet Volume 9.9; Platelet Count 174 k/uL (150-450); RBC 3.02 m/uL (4.30-5.90); RDW 14.3 % (11.5-15.5); WBC 1.6 k/uL (3.8-10.6)
[2022-06-18 11:08] LABS: Calcium 8.6 mg/dL (8.4-10.2)
[2022-06-18 11:10] LABS: Potassium 4.6 mmol/L (3.5-5.1)
[2022-06-18 11:41] LABS: Glucose,Whole Blood 201 mg/dL (70-110)
--- NOTE | 2022-06-18 12:13 | P.PN ---
Subjective Patient is seen in follow-up for acute kidney injury on chronic kidney disease. Renal function fairly stable. Currently on 4 L nasal cannula. Blood pressure on the higher side. Nonoliguric. Being diuresed. Currently on oral diuretics Serum creatinine fairly stable at 4.2, down to 3.8 today 24 hour urine output at 1.4 L No shortness of breath today. Torsemide dose was increased yesterday. Objective - Vital Signs Vital signs: Vital Signs Temp 97.6 F 06/18/22 08:00 Pulse 86 06/18/22 12:07 Resp 16 06/18/22 11:52 BP 158/71 06/18/22 11:52 Pulse Ox 95 06/18/22 11:52 FiO2 21 06/17/22 20:42 Intake & Output 06/17/22 06/18/22 06/18/22 18:59 06:59 18:59 Intake Total 180 Output Total 700 1050 Balance -700 -870 Intake: Oral 180 Output: Urine 700 1050 Other: Voiding Method Urinal # Voids 1 - Exam Awake, comfortable, not in any acute distress Examination of the heart S1 and S2 Examination lungs decreased breath sounds at the bases Abdomen is soft nontender Examination of lower extremities shows no evidence of edema AGENT SPA DESK exam grossly intact - Labs CBC & Chem 7: 06/18/22 10:09 06/18/22 10:09 Labs: Abnormal Lab Results - Last 24 Hours (Table) 06/13/22 06/17/22 06/17/22 Range/Units 18:54 16:39 20:59 WBC (3.8-10.6) k/uL RBC (4.30-5.90) m/uL Hgb (13.0-17.5) gm/dL Hct (39.0-53.0) % BUN (9-20) mg/dL Creatinine (0.66-1.25) mg/dL Glucose (74-99) mg/dL POC Glucose (mg/dL) 229 H 164 H (70-110) mg/dL Methylmalonic Acid 0.77 H (<0.40) umol/L 06/18/22 06/18/22 06/18/22 Range/Units 06:10 10:09 10:09 WBC 1.6 L (3.8-10.6) k/uL RBC 3.02 L (4.30-5.90) m/uL Hgb 9.7 L (13.0-17.5) gm/dL Hct 29.8 L (39.0-53.0) % BUN 57 H (9-20) mg/dL Creatinine 3.89 H (0.66-1.25) mg/dL Glucose 147 H (74-99) mg/dL POC Glucose (mg/dL) 112 H (70-110) mg/dL Methylmalonic Acid (<0.40) umol/L 06/18/22 Range/Units 11:39 WBC (3.8-10.6) k/uL RBC (4.30-5.90) m/uL Hgb (13.0-17.5) gm/dL Hct (39.0-53.0) % BUN (9-20) mg/dL Creatinine (0.66-1.25) mg/dL Glucose (74-99) mg/dL POC Glucose (mg/dL) 201 H (70-110) mg/dL Methylmalonic Acid (<0.40) umol/L Assessment and Plan Assessment: 1. Acute kidney injury secondary to ATN secondary to cardiorenal syndrome. Creatinine staying at around 4-4.2 mg/dL. Right kidney atrophic. No hydronephrosis noted. Possible chronic bladder outlet obstruction. 2. 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 3. Volume overload. Improving with diuresis. Add IV Lasix today 4. Acute on chronic diastolic CHF. 5. Metabolic acidosis secondary to acute kidney injury. On oral bicarb. Stable. 6. Hypertension with chronic kidney disease. Blood pressure high. 7. Diabetes mellitus. 8. Pancytopenia with hx of MGUS. Iron deficiency noted. Status post IV iron. Iron levels improved. Hematology following. 9. Hypomagnesemia from diuresis. Replaced. Plan: Continue current dose of Demadex and follow-up in the office in about 1 week's time
[2022-06-18 13:08] LABS: Eosinophils # (M) 0.03 k/uL (0-0.7); Lymphocytes # (M) 0.51 k/uL (1.0-4.8); Metamyelocytes # (M) 0.02 k/uL (0); Metamyelocytes % 1 %; Monocytes # (M) 0.45 k/uL (0-1.0); Myelocytes # (M) 0.03 k/uL (0); Myelocytes % 2 %; Neutrophils # (M) 0.58 k/uL (1.3-7.7); Neutrophils % (M) 36 %; Nucleated Red Blood Cells 0 /100 WBC (0-0); Total Cells Counted 200
[2022-06-18 13:09] LABS: Anisocytosis (M) Present; Poikilocytosis (M) Present
--- NOTE | 2022-06-18 13:24 | P.PN ---
Subjective Progress Note Date: 06/18/22 HISTORY OF PRESENT ILLNESS: Heart failure with preserved ejection fraction The patient is an 87-year-old gentleman with a past medical history significant for diabetes and hypertension and dyslipidemia who presented to the emergency department complaining of shortness of breath. The patient somewhat is a poor historian. He stated that the shortness of breath started about 4 weeks ago and it was associated lately with bilateral lower except his edema. No fever no chills. No cough or sputum production. No symptoms of chest pain or chest discomfort. He presented to the emergency department where he underwent an investigation including a chest x-ray which showed evidence of heart failure/pulmonary congestion. He underwent an NT proBNP which came in to be elevated. Beside that his creatinine when he presented was 5.6 with a baseline creatinine from 2020 of 3.8. The patient was started on Lasix and he was admitted to the intensive care unit. He was started also on BiPAP. When he was seen and evaluated this morning he does have bilateral lower extremities edema which apparently has improved overnight on Lasix IV. He also does have bilateral expiratory wheezing/diminished breathing sounds bilaterally. He was in mild heart failure when he was seen this morning. Otherwise he is hemodynamically stable. No history of congestive heart failure according to him. No history of coronary artery disease and no history of cardiac arrhythmia. He does have diabetes and hypertension and dyslipidemia and also he does have carotid atherosclerosis with prior carotid endarterectomy. He follows with a vascular surgeon regularly according to him. June 122021 The patient was seen this morning. Overall is feeling better but he states that the shortness of breath has improved. He lower extremities edema has improved as well. He underwent an echo which revealed preserved left ventricle systolic function was mild concentric left ventricular hypertrophy. He continues to be on Lasix IV. The kidney function continues to be stable. Nephrology service is on the case as well. June [id number] The patient was seen this morning. He continues to be short of breath. He stated "I feel the same". Chest x-ray was performed yesterday continues to show findings consistent with heart failure. Currently he is on Lasix IV. We don't have kidney function as of yet this morning. Beside that he has pancytopenia and hematology was consulted to see him. An ultrasound of the abdomen to check liver and spleen is in process to be done. I would advise continue the patient on Lasix IV if the creatinine continues to be stable. Nephrology is on the case as well June 152021 The patient was seen and evaluated this morning. He states the shortness of breath has improved. He continues to be on 4 L. On examination he does have diminished breathing sounds bilaterally but no crackles here. No lower extremities edema noted. Creatinine is a slightly worse. Currently he is on by mouth diuretics. He is not on IV diuretics and more which I would agree on. 06/16/2022 The patient was seen and evaluated and examined this morning. He feels that the shortness of breath has improved but he continues to be on oxygen at 4 L to maintain saturation above 90%. The lower extremities edema has improved significantly. Overall he put out about 600 mL of urine overnight. The creatinine continues to be going up. Nephrology is on the case and there is high chance that he might need to undergo dialysis. On examination he continues to have crackles bilaterally. No lower extremities edema noted on exam today. Meanwhile the pressure continues to be elevated and for that reason I'm going to start the patient on hydralazine 25 mg by mouth 3 times a day. 06/17/2022 Patient examined this morning at the bedside. Patient denies chest pain or pressure. Denies SOB. He received a dose of IV lasix this morning per nephrology. He is also receiving oral Demadex. He was started on Hydralazine yesterday. His blood pressures have improved, although still elevated with a SBP in the 150s. 06/18/2022 Patient examined at the bedside. He denies chest pain or pressure. Denies SOB. Blood pressure remains elevated. He is hoping to be discharged home today. PHYSICAL EXAM: VITAL SIGNS: Reviewed. GENERAL: Well-developed in no acute distress. NECK: Supple. No JVD or thyromegaly LUNGS: Respirations even and unlabored. Lungs diminished. HEART: Regular rate and rhythm. S1 and S2 heard. EXTREMITIES: Normal range of motion. No clubbing or cyanosis. Peripheral pulses intact. No lower extremity edema ASSESSMENT: Acute on chronic heart failure with preserved ejection fraction, EF 55% Acute on chronic kidney disease Hypertension Hyperlipidemia Diabetes Pancytopenia with history of MGUS PLAN: Continue current cardiac medications Continue diuresis per nephrology Losartan remains on hold due to kidney function Patient to follow up outpatient with Dr. Skaf Stable for discharge home today from a cardiac standpoint Further recommendations pending patient's course Nurse practitioner note has been reviewed by physician. Signing provider agrees with the documented findings, assessment, and plan of care. Objective - Vital Signs Vital signs: Vital Signs Temp 97.6 F 06/18/22 08:00 Pulse 85 06/18/22 12:18 Resp 16 06/18/22 11:52 BP 158/71 06/18/22 11:52 Pulse Ox 95 06/18/22 11:52 FiO2 21 06/17/22 20:42 Intake & Output 06/17/22 06/18/22 06/18/22 18:59 06:59 18:59 Intake Total 180 Output Total 700 1050 Balance -700 -870 Intake: Oral 180 Output: Urine 700 1050 Other: Voiding Method Urinal # Voids 1 - Labs CBC & Chem 7: 06/18/22 10:09 06/18/22 10:09 Labs: Abnormal Lab Results - Last 24 Hours (Table) 06/13/22 06/17/22 06/17/22 Range/Units 18:54 16:39 20:59 WBC (3.8-10.6) k/uL RBC (4.30-5.90) m/uL Hgb (13.0-17.5) gm/dL Hct (39.0-53.0) % Neutrophils # (Manual) (1.3-7.7) k/uL Lymphocytes # (Manual) (1.0-4.8) k/uL Metamyelocytes # (Man) (0) k/uL Myelocytes # (Manual) (0) k/uL BUN (9-20) mg/dL Creatinine (0.66-1.25) mg/dL Glucose (74-99) mg/dL POC Glucose (mg/dL) 229 H 164 H (70-110) mg/dL Methylmalonic Acid 0.77 H (<0.40) umol/L 06/18/22 06/18/22 06/18/22 Range/Units 06:10 10:09 10:09 WBC 1.6 L (3.8-10.6) k/uL RBC 3.02 L (4.30-5.90) m/uL Hgb 9.7 L (13.0-17.5) gm/dL Hct 29.8 L (39.0-53.0) % Neutrophils # (Manual) 0.58 L (1.3-7.7) k/uL Lymphocytes # (Manual) 0.51 L (1.0-4.8) k/uL Metamyelocytes # (Man) 0.02 H (0) k/uL Myelocytes # (Manual) 0.03 H (0) k/uL BUN 57 H (9-20) mg/dL Creatinine 3.89 H (0.66-1.25) mg/dL Glucose 147 H (74-99) mg/dL POC Glucose (mg/dL) 112 H (70-110) mg/dL Methylmalonic Acid (<0.40) umol/L 06/18/22 Range/Units 11:39 WBC (3.8-10.6) k/uL RBC (4.30-5.90) m/uL Hgb (13.0-17.5) gm/dL Hct (39.0-53.0) % Neutrophils # (Manual) (1.3-7.7) k/uL Lymphocytes # (Manual) (1.0-4.8) k/uL Metamyelocytes # (Man) (0) k/uL Myelocytes # (Manual) (0) k/uL BUN (9-20) mg/dL Creatinine (0.66-1.25) mg/dL Glucose (74-99) mg/dL POC Glucose (mg/dL) 201 H (70-110) mg/dL Methylmalonic Acid (<0.40) umol/L
--- NOTE | 2022-06-18 15:35 | P.PN ---
Subjective 87-year-old male with a known history of hypertension, hyperlipidemia, diabetes type 2, chronic kidney disease stage IV and prior history of smoking presents to ER with complaints of shortness of breath. Patient states that he has been having worsening symptoms for the past 3 to 4 weeks and also bilateral lower EXTR and puffiness of the hands. No complaints of chest pain. Denied any complaints of fever or chills. No nausea vomiting abdominal pain or diarrhea. Patient denies any prior history of coronary artery disease. On admission chest x-ray showed there is pulmonary venous congestion with small effusions and cardiomegaly as well as interstitial edema. Correlate for mild CHF. Laboratory data showed WC 1.4 hemoglobin 10.2 and platelets 149 Sodium 141 potassium 4.7 bicarb is 19 BUN 61 creatinine 4.06 and lactic acid less than 0.5 proBNP is 5080 troponin x1 negative liver enzymes are not elevated and coronavirus and influenza a and B and RSV not detected. On admission blood pressure 180/69 pulse is 54 and respiration 26. He was requiring BiPAP in the ER and was transferred to MICU. 06/15/2022 Patient is seen and evaluated with family members at bedside; reports improvement in breathing; currently on O2 at 4 L per nasal cannula with O2 saturation above 95% -- vital signs are reviewed, temperature 98.3, pulse 69, respirations 16 and blood pressure of 145/65 Cardiology is following, patient has been transitioned to oral diuretic therapy in form of torsemide 40 mg daily; cardiology is agreeable - Creatinine slightly worse this morning; nephrology on board; we'll plan for urgent renal replacement therapy 06/16/2022 Patient is seen and evaluated with family members at bedside; denies any specific complaints Vital signs are reviewed; blood pressure remains elevated Patient has been evaluated by cardiology and is recommended hydralazine for uncontrolled hypertension; patient remains on torsemide 40 mg twice a day; we will continue to monitor strict STEVEN's and daily weights with renal function and electrolytes Possible discharge in next 24 hours if patient remains stable 06/17/2022 Patient improving breathing and CHF while his on IV diuretics. He got extra doses of IV Lasix today 1, also he was placed on torsemide 80 mg daily. Also his blood pressure is better controlled after noting hydralazine and diur etics, systolic blood pressure is 158/70. Patient still has evidence of pancytopenia with oncology team on the case, workup pending. Patient is aware of both stage IV and advanced kidney disease, and he knows about the recommendation to follow up with supervisor chemical in 1 week after discharge and he agreeable. Patient is recommended to go to rehab upon discharge and patient agreeable 06/18/2022 Patient was planned for discharge today, he was doing well, he was cleared for discharge by cooker syrup and sliver machine operator oncologist as well as supervisor chemical. His creatinine down to 3.8, WBC went up to 1.6, hemoglobin 9.7 and platelet normal However discharge was canceled because patient developed redness and swelling and tenderness with warmth in the right arm where an IV line site is, therefore we held his discharge, start cefazolin and check ultrasound of the Doppler to rule out DVT. Also we will discontinue peripheral line Discussed the plan with the patient and daughter at bedside and they are agreement. Discussed with bed side nurse. Discussed with the cooker syrup Objective - Vital Signs Vital signs: Vital Signs Temp 97.6 F 06/18/22 08:00 Pulse 85 06/18/22 12:18 Resp 16 06/18/22 11:52 BP 158/71 06/18/22 11:52 Pulse Ox 95 06/18/22 11:52 FiO2 21 06/17/22 20:42 Intake & Output 06/17/22 06/18/22 06/18/22 18:59 06:59 18:59 Intake Total 180 Output Total 700 1050 Balance -700 -870 Intake: Oral 180 Output: Urine 700 1050 Other: Voiding Method Urinal # Voids 1 - Exam -GENERAL: The patient is alert and oriented x3, not in any acute distress. Well developed, well nourished. Generally weak HEENT: Pupils are round and equally reacting to light. EOMI. No scleral icterus. No conjunctival pallor. Normocephalic, atraumatic. No pharyngeal erythema. No thyromegaly. CARDIOVASCULAR: S1 and S2 present. No murmurs, rubs, or gallops. PULMONARY: Chest is clear to auscultation, no wheezing or crackles. ABDOMEN: Soft, nontender, nondistended, normoactive bowel sounds. No palpable organomegaly. MUSCULOSKELETAL: No joint swelling or deformity. -EXTREMITIES: No cyanosis, clubbing, or pedal edema. Right distal arm is swollen, warm, tender and draped NEUROLOGICAL: Gross neurological examination did not reveal any focal deficits. SKIN: No rashes. no petechiae. - Labs CBC & Chem 7: 06/18/22 10:09 06/18/22 10:09 Labs: Abnormal Lab Results - Last 24 Hours (Table) 06/13/22 06/17/22 06/17/22 Range/Units 18:54 16:39 20:59 WBC (3.8-10.6) k/uL RBC (4.30-5.90) m/uL Hgb (13.0-17.5) gm/dL Hct (39.0-53.0) % Neutrophils # (Manual) (1.3-7.7) k/uL Lymphocytes # (Manual) (1.0-4.8) k/uL Metamyelocytes # (Man) (0) k/uL Myelocytes # (Manual) (0) k/uL BUN (9-20) mg/dL Creatinine (0.66-1.25) mg/dL Glucose (74-99) mg/dL POC Glucose (mg/dL) 229 H 164 H (70-110) mg/dL Methylmalonic Acid 0.77 H (<0.40) umol/L 06/18/22 06/18/22 06/18/22 Range/Units 06:10 10:09 10:09 WBC 1.6 L (3.8-10.6) k/uL RBC 3.02 L (4.30-5.90) m/uL Hgb 9.7 L (13.0-17.5) gm/dL Hct 29.8 L (39.0-53.0) % Neutrophils # (Manual) 0.58 L (1.3-7.7) k/uL Lymphocytes # (Manual) 0.51 L (1.0-4.8) k/uL Metamyelocytes # (Man) 0.02 H (0) k/uL Myelocytes # (Manual) 0.03 H (0) k/uL BUN 57 H (9-20) mg/dL Creatinine 3.89 H (0.66-1.25) mg/dL Glucose 147 H (74-99) mg/dL POC Glucose (mg/dL) 112 H (70-110) mg/dL Methylmalonic Acid (<0.40) umol/L 06/18/22 Range/Units 11:39 WBC (3.8-10.6) k/uL RBC (4.30-5.90) m/uL Hgb (13.0-17.5) gm/dL Hct (39.0-53.0) % Neutrophils # (Manual) (1.3-7.7) k/uL Lymphocytes # (Manual) (1.0-4.8) k/uL Metamyelocytes # (Man) (0) k/uL Myelocytes # (Manual) (0) k/uL BUN (9-20) mg/dL Creatinine (0.66-1.25) mg/dL Glucose (74-99) mg/dL POC Glucose (mg/dL) 201 H (70-110) mg/dL Methylmalonic Acid (<0.40) umol/L Assessment and Plan Assessment: Right upper extremity cellulitis related to IV line. Acute diastolic CHF, with preserved ejection fraction Acute hypoxic respiratory failure secondary to above improvement on 4 L oxygen with nasal cannula. chronic kidney disease stage IV likely due to cardiorenal syndrome. Uncontrolled hypertension, currently better controlled Diabetes type 2 insulin-dependent Prior history of smoking Plan: Start cefazolin, check ultrasound of the upper extremity and discontinue IV line from the right arm Patient therefore discharged by other consultants including cooker syrup supervisor chemical and sliver machine operator Continue with torsemide, oral hydralazine and Norvasc Continue with insulin Levemir Monitor pancytopenia and follow-up with hematology/oncology team nephrology team has cleared Patient for discharge and follow-up in one week, patient informed and he agrees Labs and medication were reviewed.. Continue same treatment. Continue with symptomatic treatment. Resume home medication. Monitor lytes and vitals. DVT and GI prophylaxis. Further recommendations as per clinical course of the patient DVT prophylaxis: Subcutaneous heparin GI Prophylaxis: Ppi PT/OT: KIERAN Prognosis is guarded
[2022-06-18] MEDS: CYANOCOBALAMIN 500 MCG TAB PO SCH (15:40)
--- NOTE | 2022-06-18 15:46 | US ---
EXAMINATION TYPE: US venous doppler duplex UE RT DATE OF EXAM: 06/18/2022 COMPARISON: [facility] 07/05/2000 CLINICAL HISTORY: dvt. Redness and swelling superior to IV site right right antecubital. SIDE PERFORMED: Right Right Arm: Negative for DVT. Possible SVT at IV site in Basilic vein IMPRESSION: 1. No diagnostic evidence of DVT. 2. Findings consistent with superficial venous thrombosis at the site of the IV in the basilic vein.
[2022-06-18 16:35] LABS: Glucose,Whole Blood 147 mg/dL (70-110)
[2022-06-18] MEDS: carvediloL 12.5 MG TAB PO SCH ×2 (17:20→20:40)
[2022-06-18 20:21] LABS: Glucose,Whole Blood 179 mg/dL (70-110)
[2022-06-18] MEDS: INSULIN DETEMIR (LEVEMIR) 100 UNIT/ML SYR SQ SCH (20:25)
[2022-06-18] MEDS: hydrALAZINE HCL 25 MG TAB PO SCH (20:53)
[2022-06-18] MEDS: ATORVASTATIN 10 MG TAB PO SCH (20:53)
[2022-06-18] MEDS: LATANOPROST 0.005% OPHTH DROPS 2.5 ML BTL BOTH EYES SCH (20:54)
[2022-06-19] MEDS: IPRATROPIUM-ALBUTEROL 3 ML NEB INHALATION SCH ×4 (00:31→11:21)
[2022-06-19 06:15] LABS: Glucose,Whole Blood 90 mg/dL (70-110)
[2022-06-19] MEDS: carvediloL 12.5 MG TAB PO SCH (06:40)
[2022-06-19] MEDS: PANTOPRAZOLE 40 MG TABLET PO SCH (06:40)
[2022-06-19 09:04] LABS: Calcium 8.6 mg/dL (8.4-10.2); Potassium 4.2 mmol/L (3.5-5.1)
[2022-06-19] MEDS: CYANOCOBALAMIN 500 MCG TAB PO SCH (09:26)
[2022-06-19] MEDS: SODIUM BICARBONATE TAB 650 MG TAB PO SCH (09:28)
[2022-06-19] MEDS: allopurinoL 100 MG TAB PO SCH (09:28)
[2022-06-19] MEDS: DOXAZOSIN 2 MG TAB PO SCH (09:28)
[2022-06-19] MEDS: hydrALAZINE HCL 25 MG TAB PO SCH (09:28)
[2022-06-19] MEDS: amLODIPine 5 MG TAB PO SCH (09:28)
[2022-06-19] MEDS: MAGNESIUM OXIDE 400 MG TAB PO SCH (09:28)
[2022-06-19] MEDS: TORSEMIDE 20 MG TAB PO SCH (09:28)
[2022-06-19] MEDS: HEPARIN SODIUM,PORCINE/PF 5,000 UNIT/0.5 ML SYRINGE SQ SCH (09:31)
[2022-06-19 09:38] LABS: HCT 33.1 % (39.0-53.0); HGB 10.7 gm/dL (13.0-17.5); Hypochromasia Slight; MCH 31.6 pg (25.0-35.0); MCHC 32.2 g/dL (31.0-37.0); MCV 98.1 fL (80.0-100.0); Mean Platelet Volume 10.7; Platelet Count 194 k/uL (150-450); RBC 3.38 m/uL (4.30-5.90); RDW 14.5 % (11.5-15.5)
[2022-06-19 09:53] LABS: Band Neutrophils % 2 %; Eosinophils # (M) 0.08 k/uL (0-0.7); Metamyelocytes # (M) 0.06 k/uL (0); Metamyelocytes % 3 %; Neutrophils % (M) 41 %; Nucleated Red Blood Cells 0 /100 WBC (0-0); Polychromasia Present; Stomatocytes Present; Total Cells Counted 100
[2022-06-19 10:04] VITALS: BP 138/52; PULSE 58; RESP 16; TEMP 98.2
--- NOTE | 2022-06-19 10:36 | P.PN ---
Subjective Progress Note Date: 06/19/22 HISTORY OF PRESENT ILLNESS: Heart failure with preserved ejection fraction The patient is an 87-year-old gentleman with a past medical history significant for diabetes and hypertension and dyslipidemia who presented to the emergency department complaining of shortness of breath. The patient somewhat is a poor historian. He stated that the shortness of breath started about 4 weeks ago and it was associated lately with bilateral lower except his edema. No fever no chills. No cough or sputum production. No symptoms of chest pain or chest discomfort. He presented to the emergency department where he underwent an investigation including a chest x-ray which showed evidence of heart failure/pulmonary congestion. He underwent an NT proBNP which came in to be elevated. Beside that his creatinine when he presented was 5.6 with a baseline creatinine from 2020 of 3.8. The patient was started on Lasix and he was admitted to the intensive care unit. He was started also on BiPAP. When he was seen and evaluated this morning he does have bilateral lower extremities edema which apparently has improved overnight on Lasix IV. He also does have bilateral expiratory wheezing/diminished breathing sounds bilaterally. He was in mild heart failure when he was seen this morning. Otherwise he is hemodynamically stable. No history of congestive heart failure according to him. No history of coronary artery disease and no history of cardiac arrhythmia. He does have diabetes and hypertension and dyslipidemia and also he does have carotid atherosclerosis with prior carotid endarterectomy. He follows with a vascular surgeon regularly according to him. June 122021 The patient was seen this morning. Overall is feeling better but he states that the shortness of breath has improved. He lower extremities edema has improved as well. He underwent an echo which revealed preserved left ventricle systolic function was mild concentric left ventricular hypertrophy. He continues to be on Lasix IV. The kidney function continues to be stable. Nephrology service is on the case as well. June 142021 The patient was seen this morning. He continues to be short of breath. He stated "I feel the same". Chest x-ray was performed yesterday continues to show findings consistent with heart failure. Currently he is on Lasix IV. We don't have kidney function as of yet this morning. Beside that he has pancytopenia and hematology was consulted to see him. An ultrasound of the abdomen to check liver and spleen is in process to be done. I would advise continue the patient on Lasix IV if the creatinine continues to be stable. Nephrology is on the case as well June 152021 The patient was seen and evaluated this morning. He states the shortness of breath has improved. He continues to be on 4 L. On examination he does have diminished breathing sounds bilaterally but no crackles here. No lower extremities edema noted. Creatinine is a slightly worse. Currently he is on by mouth diuretics. He is not on IV diuretics and more which I would agree on. 06/16/2022 The patient was seen and evaluated and examined this morning. He feels that the shortness of breath has improved but he continues to be on oxygen at 4 L to maintain saturation above 90%. The lower extremities edema has improved significantly. Overall he put out about 600 mL of urine overnight. The creatinine continues to be going up. Nephrology is on the case and there is high chance that he might need to undergo dialysis. On examination he continues to have crackles bilaterally. No lower extremities edema noted on exam today. Meanwhile the pressure continues to be elevated and for that reason I'm going to start the patient on hydralazine 25 mg by mouth 3 times a day. 06/17/2022 Patient examined this morning at the bedside. Patient denies chest pain or pressure. Denies SOB. He received a dose of IV lasix this morning per nephrology. He is also receiving oral Demadex. He was started on Hydralazine yesterday. His blood pressures have improved, although still elevated with a SBP in the 150s. 06/18/2022 Patient examined at the bedside. He denies chest pain or pressure. Denies SOB. Blood pressure remains elevated. He is hoping to be discharged home today. 06/19/2022 Patient examined this morning at the bedside. Patient denies chest or pressure. Denies SOB. Patient developed redness and swelling of his right arm. He underwent doppler revealing superficial venous thrombosis. Blood pressure stable. PHYSICAL EXAM: VITAL SIGNS: Reviewed. GENERAL: Well-developed in no acute distress. NECK: Supple. No JVD or thyromegaly LUNGS: Respirations even and unlabored. Lungs diminished. HEART: Regular rate and rhythm. S1 and S2 heard. EXTREMITIES: Normal range of motion. No clubbing or cyanosis. Peripheral pul ses intact. No lower extremity edema ASSESSMENT: Acute on chronic heart failure with preserved ejection fraction, EF 55% Acute on chronic kidney disease Hypertension Hyperlipidemia Diabetes Pancytopenia with history of MGUS Superficial venous thrombosis of right upper extremity PLAN: Continue current cardiac medications Continue diuresis per nephrology Losartan remains on hold due to kidney function Patient to follow up outpatient with Dr. West Hogan for discharge home today from a cardiac standpoint Further recommendations pending patient's course Nurse practitioner note has been reviewed by physician. Signing provider agrees with the documented findings, assessment, and plan of care. Objective - Vital Signs Vital signs: Vital Signs Temp 98.2 F 06/19/22 09:25 Pulse 58 L 06/19/22 09:25 Resp 16 06/19/22 09:25 BP 138/52 06/19/22 09:25 Pulse Ox 92 L 06/19/22 09:25 FiO2 21 06/17/22 20:42 Intake & Output 06/18/22 06/19/22 06/19/22 18:59 06:59 18:59 Intake Total 540 463 Output Total 1050 Balance -510 463 Weight 73.5 kg Intake: Oral 540 463 Output: Urine 1050 Other: Voiding Method Urinal Urinal - Labs CBC & Chem 7: 06/19/22 07:29 06/19/22 07:29 Labs: Abnormal Lab Results - Last 24 Hours (Table) 06/18/22 06/18/22 06/18/22 Range/Units 10:09 10:09 11:39 WBC 1.6 L (3.8-10.6) k/uL RBC 3.02 L (4.30-5.90) m/uL Hgb 9.7 L (13.0-17.5) gm/dL Hct 29.8 L (39.0-53.0) % Neutrophils # (Manual) 0.58 L (1.3-7.7) k/uL Lymphocytes # (Manual) 0.51 L (1.0-4.8) k/uL Metamyelocytes # (Man) 0.02 H (0) k/uL Myelocytes # (Manual) 0.03 H (0) k/uL BUN 57 H (9-20) mg/dL Creatinine 3.89 H (0.66-1.25) mg/dL Glucose 147 H (74-99) mg/dL POC Glucose (mg/dL) 201 H (70-110) mg/dL 06/18/22 06/18/22 06/19/22 Range/Units 16:33 20:19 07:29 WBC 2.0 L (3.8-10.6) k/uL RBC 3.38 L (4.30-5.90) m/uL Hgb 10.7 L (13.0-17.5) gm/dL Hct 33.1 L (39.0-53.0) % Neutrophils # (Manual) 0.80 L (1.3-7.7) k/uL Lymphocytes # (Manual) 0.70 L (1.0-4.8) k/uL Metamyelocytes # (Man) 0.06 H (0) k/uL Myelocytes # (Manual) (0) k/uL BUN (9-20) mg/dL Creatinine (0.66-1.25) mg/dL Glucose (74-99) mg/dL POC Glucose (mg/dL) 147 H 179 H (70-110) mg/dL 06/19/22 Range/Units 07:29 WBC (3.8-10.6) k/uL RBC (4.30-5.90) m/uL Hgb (13.0-17.5) gm/dL Hct (39.0-53.0) % Neutrophils # (Manual) (1.3-7.7) k/uL Lymphocytes # (Manual) (1.0-4.8) k/uL Metamyelocytes # (Man) (0) k/uL Myelocytes # (Manual) (0) k/uL BUN 52 H (9-20) mg/dL Creatinine 4.28 H (0.66-1.25) mg/dL Glucose 114 H (74-99) mg/dL POC Glucose (mg/dL) (70-110) mg/dL
--- NOTE | 2022-06-19 11:05 | P.PN ---
Subjective Patient is seen in follow-up for acute kidney injury on chronic kidney disease. Renal function fairly stable. Currently on 4 L nasal cannula. Blood pressure on the higher side. Nonoliguric. Being diuresed. Currently on oral diuretics Serum creatinine fairly stable at 4.2, down to 3.8 yesterday 24 hour urine output at 1.4 L No shortness of breath today. Torsemide dose was increased. Patient had developed significant cellulitis and superficial thrombophlebitis in the right arm at the site of the IV access. There is no DVT noted. Patient is maintained on antibiotics. Objective - Vital Signs Vital signs: Vital Signs Temp 98.2 F 06/19/22 09:25 Pulse 58 L 06/19/22 09:25 Resp 16 06/19/22 09:25 BP 138/52 06/19/22 09:25 Pulse Ox 92 L 06/19/22 09:25 FiO2 21 06/17/22 20:42 Intake & Output 06/18/22 06/19/22 06/19/22 18:59 06:59 18:59 Intake Total 540 463 Output Total 1050 Balance -510 463 Weight 73.5 kg Intake: Oral 540 463 Output: Urine 1050 Other: Voiding Method Urinal Urinal - Exam Awake, comfortable, not in any acute distress Examination of the heart S1 and S2 Examination lungs decreased breath sounds at the bases Abdomen is soft nontender Examination of lower extremities shows no evidence of edema. Mild erythema noted in the right antecubital fossa IMPORT EXPORT AGENT exam grossly intact - Labs CBC & Chem 7: 06/19/22 07:29 06/19/22 07:29 Labs: Abnormal Lab Results - Last 24 Hours (Table) 06/18/22 06/18/22 06/18/22 Range/Units 10:09 10:09 11:39 WBC 1.6 L (3.8-10.6) k/uL RBC 3.02 L (4.30-5.90) m/uL Hgb 9.7 L (13.0-17.5) gm/dL Hct 29.8 L (39.0-53.0) % Neutrophils # (Manual) 0.58 L (1.3-7.7) k/uL Lymphocytes # (Manual) 0.51 L (1.0-4.8) k/uL Metamyelocytes # (Man) 0.02 H (0) k/uL Myelocytes # (Manual) 0.03 H (0) k/uL BUN 57 H (9-20) mg/dL Creatinine 3.89 H (0.66-1.25) mg/dL Glucose 147 H (74-99) mg/dL POC Glucose (mg/dL) 201 H (70-110) mg/dL 06/18/22 06/18/22 06/19/22 Range/Units 16:33 20:19 07:29 WBC 2.0 L (3.8-10.6) k/uL RBC 3.38 L (4.30-5.90) m/uL Hgb 10.7 L (13.0-17.5) gm/dL Hct 33.1 L (39.0-53.0) % Neutrophils # (Manual) 0.80 L (1.3-7.7) k/uL Lymphocytes # (Manual) 0.70 L (1.0-4.8) k/uL Metamyelocytes # (Man) 0.06 H (0) k/uL Myelocytes # (Manual) (0) k/uL BUN (9-20) mg/dL Creatinine (0.66-1.25) mg/dL Glucose (74-99) mg/dL POC Glucose (mg/dL) 147 H 179 H (70-110) mg/dL 06/19/22 Range/Units 07:29 WBC (3.8-10.6) k/uL RBC (4.30-5.90) m/uL Hgb (13.0-17.5) gm/dL Hct (39.0-53.0) % Neutrophils # (Manual) (1.3-7.7) k/uL Lymphocytes # (Manual) (1.0-4.8) k/uL Metamyelocytes # (Man) (0) k/uL Myelocytes # (Manual) (0) k/uL BUN 52 H (9-20) mg/dL Creatinine 4.28 H (0.66-1.25) mg/dL Glucose 114 H (74-99) mg/dL POC Glucose (mg/dL) (70-110) mg/dL Assessment and Plan Assessment: 1. Acute kidney injury secondary to ATN secondary to cardiorenal syndrome. Creatinine staying at around 4-4.2 mg/dL. down to 3.8 yesterday. Right kidney atrophic. No hydronephrosis noted. Possible chronic bladder outlet obstruction. 2. 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 3. Volume overload. Improving with diuresis. Add IV Lasix today 4. Acute on chronic diastolic CHF. 5. Metabolic acidosis secondary to acute kidney injury. On oral bicarb. Stable. 6. Hypertension with chronic kidney disease. Blood pressure high. 7. Diabetes mellitus. 8. Pancytopenia with hx of MGUS. Iron deficiency noted. Status post IV iron. Iron levels improved. Hematology following. 9. Hypomagnesemia from diuresis. Replaced. Plan: Continue current dose of Demadex and follow-up in the office in about 1 week's time
[2022-06-19] MEDS ORDERED: CEPHALEXIN 250 MG CAP PO SCH (12:00)
[2022-06-19] MEDS ORDERED: CEPHALEXIN 500 MG CAP PO SCH (16:00)
--- NOTE | 2022-06-23 06:51 | P.DS ---
Providers Date of admission: 06/10/22 20:06 Attending physician: Deangelo Zurita Consults: 06/10/22 20:05 Consult Physician Routine Consulting Provider: Tom Vázquez Consult Reason/Comments: heart failure Do you want consulting provider notified?: Yes Consult Physician Routine Consulting Provider: Pastor Flores Consult Reason/Comments: ckd Do you want consulting provider notified?: Yes 06/13/22 09:21 Consult Physician Urgent Consulting Provider: Sergio Weston Consult Reason/Comments: low white count Do you want consulting provider notified?: Yes Primary care physician: [facility] Course: Diagnoses: Right upper extremity cellulitis related to IV line. Ultrasound showing superficial thrombophlebitis. Abdomen discontinued and its improvement Acute diastolic CHF, with preserved ejection fraction Acute hypoxic respiratory failure secondary to above improvement on 4 L oxygen with nasal cannula. chronic kidney disease stage IV likely due to cardiorenal syndrome. Uncontrolled hypertension, currently better controlled Diabetes type 2 insulin-dependent Prior history of smoking Hospital course: 87-year-old male with a known history of hypertension, hyperlipidemia, diabetes type 2, chronic kidney disease stage IV and prior history of smoking presents to ER with complaints of shortness of breath. Patient states that he has been having worsening symptoms for the past 3 to 4 weeks and also bilateral lower EXTR and puffiness of the hands. No complaints of chest pain. On admission patient was given found to have acute diastolic CHF acute hypoxic failure. CHRONIC kidney disease stage IV. Patient has been evaluated by hvac technician residential and programming engineer. Patient was treated with diuretic. Also was started on hydralazine on the top of his other medication of Norvasc and Coreg. Patient showed interval improvement and he was cleared for discharge by both services of hvac technician residential and programming engineer Air Twister Winder evaluated patient for pancytopenia secondary to MGUS, numbers are stable and improving upon discharge and patient is asymptomatic. On the day of discharge patient is asymptomatic, no chest pain or dyspnea, no abdominal pain or vomiting or diarrhea, no urinary complaints. He had some redness and erythema and his right cubital fossa IV line which was discontinued, ultrasound showed superficial thrombophlebitis, patient responded to treatment with antibiotics and he will be discharged on short course of oral Keflex Problems and management plan were discussed with the patient and he verbalized understanding and acceptance Patient was found stable and can be discharged home in guarded prognosis however he needs follow-up as an outpatient. Patient was instructed to follow up with PCP Dr. Ellis within one week and patient agrees Patient was instructed to follow up with his hvac technician residential Dr. Dodson in one week, with programming engineer Dr. Gregory in 1-2 [address] hand [address] Weston in 1-2 weeks and he verbalized understanding and acceptance Physical exam Gen: patient is a AAOx3, no distress CVS: S1-S2, RRR, no murmur Lungs: B/L CTA, no wheezing Abdomen: soft, no distention, no tenderness, positive bowel sounds -Extremity: no leg edema or induration. Improving right arm distal cellulitis/superficial thrombophlebitis Time spent more than 35 minutes Patient Condition at Discharge: Serious Plan - Discharge Summary Discharge Rx Participant: Yes New Discharge Prescriptions: New Cyanocobalamin [Vitamin B-12] 1,000 mcg PO DAILY #60 tab hydrALAZINE HCL [Apresoline] 25 mg PO BID #60 tab Torsemide [Demadex] 80 mg PO DAILY 30 Days #120 tab Sodium Bicarbonate Tab 650 mg PO DAILY #30 tab Albuterol Inhaler [Ventolin Hfa Inhaler] 2 puff INHALATION Q6H PRN #1 each PRN Reason: Shortness Of Breath Or Wheezing Cephalexin [Keflex] 500 mg PO TID 3 Days #9 cap Continue Ferrous Sulfate [Iron (65 MG Elemental)] 325 mg PO DAILY Lidocaine 5% Patch [Lidoderm 5% Patch] 1 patch TOPICAL DAILY PRN PRN Reason: Pain Simvastatin [Zocor] 20 mg PO HS Dulaglutide [Trulicity] 1.5 mg SQ OK carvediloL [Coreg] 25 mg PO BID #60 tab Cholecalciferol [Vitamin D3 (25 Mcg = 1000 Iu)] 25 mcg PO DAILY Terazosin [Hytrin] 2 mg PO HS Latanoprost/Pf [Latanoprost 0.005% Eye Drop] 1 drop BOTH EYES HS Omeprazole 20 mg PO BID rOPINIRole HCL [Requip] 0.5 mg PO HS Magnesium Oxide 400 mg PO DAILY allopurinoL [Zyloprim] 100 mg PO DAILY amLODIPine [Norvasc] 10 mg PO DAILY #30 tab Discontinued Furosemide [Lasix] 40 mg PO DAILY PRN PRN Reason: Edema Insulin Glargine,Hum.rec.anlog [Lantus Solostar] 18 unit SQ DIRECTED metOLazone [Zaroxolyn] 2.5 mg PO MOWEFR Losartan Potassium 100 mg PO DAILY Discharge Medication List Cholecalciferol [Vitamin D3 (25 Mcg = 1000 Iu)] 25 mcg PO DAILY 11/23/20 [History] Ferrous Sulfate [Iron (65 MG Elemental)] 325 mg PO DAILY 11/23/20 [History] Latanoprost/Pf [Latanoprost 0.005% Eye Drop] 1 drop BOTH EYES HS 11/23/20 [History] Terazosin [Hytrin] 2 mg PO HS 11/23/20 [History] Dulaglutide [Trulicity] 1.5 mg SQ KO 06/10/22 [History] Lidocaine 5% Patch [Lidoderm 5% Patch] 1 patch TOPICAL DAILY PRN 06/10/22 [History] Magnesium Oxide 400 mg PO DAILY 06/10/22 [History] Omeprazole 20 mg PO BID 06/10/22 [History] Simvastatin [Zocor] 20 mg PO HS 06/10/22 [History] allopurinoL [Zyloprim] 100 mg PO DAILY 06/10/22 [History] rOPINIRole HCL [Requip] 0.5 mg PO HS 06/10/22 [History] Albuterol Inhaler [Ventolin Hfa Inhaler] 2 puff INHALATION Q6H PRN #1 each 06/18/22 [Rx] Cyanocobalamin [Vitamin B-12] 1,000 mcg PO DAILY #60 tab 06/18/22 [Rx] Sodium Bicarbonate Tab 650 mg PO DAILY #30 tab 06/18/22 [Rx] Torsemide [Demadex] 80 mg PO DAILY 30 Days #120 tab 06/18/22 [Rx] amLODIPine [Norvasc] 10 mg PO DAILY #30 tab 06/18/22 [Rx] carvediloL [Coreg] 25 mg PO BID #60 tab 06/18/22 [Rx] hydrALAZINE HCL [Apresoline] 25 mg PO BID #60 tab 06/18/22 [Rx] Cephalexin [Keflex] 500 mg PO TID 3 Days #9 cap 06/19/22 [Rx] Follow up Appointment(s)/Referral(s): Sergio Weston MD [STAFF PHYSICIAN] - 07/10/22 4:00 pm Kaya Gregory MD [STAFF PHYSICIAN] - 07/08/22 1:00 pm Jimenez Dodson MD [STAFF PHYSICIAN] - 1 Week (Office to call with appointment date and time.) Jorge L Davidson MD [Primary Care Provider] - 1-2 days Patient Instructions/Handouts: Heart Failure (DC), Hypoglycemia in a Person with Diabetes (DC) Activity/Diet/Wound Care/Special Instructions: Heart healthy low carbohydrate diet, 1800 kcal per day Activity is restricted until you till you see your doctor we recommend to check your glucose 4 times a day before each team and at bed luciana e, keep the results in a log book and bring it to your doctor on your appointment date If your glucose less than 70 or more than 400 then call [phone] on come to emergency room Discharge Disposition: HOME WITH HOME HEALTH SERVICES
== END 2022-06-19 12:36 | disposition home health service (06) | DRG 291 ==
LOC: EC 14:54 → 3SCARD 20:06 → 2SICU 06-11 00:55 → 3SCARD 06-12 12:25
PROVIDERS: ADMIT Hospitalist; ATTEND Hospitalist
PROC: 5A09357 Assistance with Respiratory Ventilation, Less than 24 Consecutive Hours, Continuous Positive Airway Pressure (ICD-10-PCS; principal; 2022-06-11)
DX: I13.0 Hypertensive heart and chronic kidney disease with heart failure and stage 1 through stage 4 chronic kidney disease, or unspecified chronic kidney disease (principal); I50.33 Acute on chronic diastolic (congestive) heart failure; J96.01 Acute respiratory failure with hypoxia; N17.0 Acute kidney failure with tubular necrosis; E87.20 Acidosis, unspecified; L03.113 Cellulitis of right upper limb; N18.4 Chronic kidney disease, stage 4 (severe); I82.611 Acute embolism and thrombosis of superficial veins of right upper extremity; D61.818 Other pancytopenia; T82.7XXA Infection and inflammatory reaction due to other cardiac and vascular devices, implants and grafts, initial encounter; I50.82 Biventricular heart failure; N32.0 Bladder-neck obstruction; T50.2X5A Adverse effect of carbonic-anhydrase inhibitors, benzothiadiazides and other diuretics, initial encounter; E83.42 Hypomagnesemia; E78.5 Hyperlipidemia, unspecified; I80.8 Phlebitis and thrombophlebitis of other sites; D47.2 Monoclonal gammopathy; E11.22 Type 2 diabetes mellitus with diabetic chronic kidney disease; Z20.822 Contact with and (suspected) exposure to COVID-19; Z79.4 Long term (current) use of insulin; Z79.899 Other long term (current) drug therapy; Z86.73 Personal history of transient ischemic attack (TIA), and cerebral infarction without residual deficits; Z87.891 Personal history of nicotine dependence; Z71.3 Dietary counseling and surveillance
CPT/HCPCS: 36415; 71045; 71046; 76700; 76770; 77075; 80048; 80053; 81001; 82525; 82607; 82728; 82746; 82784; 83540; 83550; 83605; 83735; 83880; 83883; 83921; 84165; 84484; 85025; 85610; 85730; 86038; 86334; 86431; 87636; 93005; 93306; 94640; 94660; 94760; 96374; 96375; 99284; 99285

== ENCOUNTER 2022-08-31 11:31 | Inpatient (IN) | payer OTHER, MEDICARE ==
[2022-08-31] MEDS ORDERED: IPRATROPIUM-ALBUTEROL 3 ML NEB INHALATION STA (11:48)
[2022-08-31 12:16] LABS: Basophils % (A) 1 %; Eosinophils # (A) 0.4 k/uL (0-0.7); Eosinophils % (A) 10 %; HCT 28.6 % (39.0-53.0); HGB 9.6 gm/dL (13.0-17.5); Lymphocytes # (A) 0.7 k/uL (1.0-4.8); Lymphocytes % (A) 15 %; MCH 32.1 pg (25.0-35.0); MCHC 33.6 g/dL (31.0-37.0); MCV 95.4 fL (80.0-100.0); Mean Platelet Volume 9.6; Monocytes # (A) 0.2 k/uL (0-1.0); Monocytes % (A) 4 %; Neutrophils % (A) 67 %; Platelet Count 116 k/uL (150-450); RBC 2.99 m/uL (4.30-5.90); RDW 15.8 % (11.5-15.5); WBC 4.4 k/uL (3.8-10.6)
--- NOTE | 2022-08-31 12:18 | ED ---
SOB HPI - General Chief Complaint: Shortness of Breath Stated Complaint: EILEEN Time Seen by Provider: 08/31/22 11:42 Source: patient, family Mode of arrival: ambulatory Limitations: no limitations - History of Present Illness Initial Comments: Patient is an 87-year-old male with history of CHF, diabetes, hypertension, hyperlipidemia, kidney disease presenting with chief complaint of shortness of breath. Shortness of breath started last night and has progressively been getting worse. He also states that the swelling in his bilateral lower extrem ities has been getting worse over the last few weeks. Patient lives alone. Denies chest pain, abdominal pain, nausea, vomiting, fever, chills, cough, congestion, sore throat, - Related Data Home Medications Medication Instructions Recorded Confirmed Cholecalciferol [Vitamin D3 (25 25 mcg PO DAILY 11/23/20 06/10/22 Mcg = 1000 Iu)] Ferrous Sulfate [Iron (65 MG 325 mg PO DAILY 11/23/20 06/10/22 Elemental)] Latanoprost/Pf [Latanoprost 0.005% 1 drop BOTH EYES HS 11/23/20 06/10/22 Eye Drop] Terazosin [Hytrin] 2 mg PO HS 11/23/20 06/10/22 Dulaglutide [Trulicity] 1.5 mg SQ KO 06/10/22 06/10/22 Lidocaine 5% Patch [Lidoderm 5% 1 patch TOPICAL DAILY PRN 06/10/22 06/10/22 Patch] Magnesium Oxide 400 mg PO DAILY 06/10/22 06/10/22 Omeprazole 20 mg PO BID 06/10/22 06/10/22 Simvastatin [Zocor] 20 mg PO HS 06/10/22 06/10/22 allopurinoL [Zyloprim] 100 mg PO DAILY 06/10/22 06/10/22 rOPINIRole HCL [Requip] 0.5 mg PO HS 06/10/22 06/10/22 Previous Rx's Medication Instructions Recorded Albuterol Inhaler [Ventolin Hfa 2 puff INHALATION Q6H PRN #1 each 06/18/22 Inhaler] Cyanocobalamin [Vitamin B-12] 1,000 mcg PO DAILY #60 tab 06/18/22 Sodium Bicarbonate Tab 650 mg PO DAILY #30 tab 06/18/22 Torsemide [Demadex] 80 mg PO DAILY 30 Days #120 tab 06/18/22 amLODIPine [Norvasc] 10 mg PO DAILY #30 tab 06/18/22 carvediloL [Coreg] 25 mg PO BID #60 tab 06/18/22 hydrALAZINE HCL [Apresoline] 25 mg PO BID #60 tab 06/18/22 Cephalexin [Keflex] 500 mg PO TID 3 Days #9 cap 06/19/22 Allergies Allergy/AdvReac Type Severity Reaction Status Date / Time No Known Allergies Allergy Verified 08/31/22 11:41 Review of Systems ROS Statement: Those systems with pertinent positive or pertinent negative responses have been documented in the HPI. ROS Other: All systems not noted in ROS Statement are negative. Past Medical History Past Medical History: Diabetes Mellitus, Hyperlipidemia, Hypertension, Renal Disease History of Any Multi-Drug Resistant Organisms: None Reported Past Surgical History: Appendectomy, Joint Replacement, Orthopedic Surgery Past Psychological History: No Psychological Hx Reported Smoking Status: Former smoker Past Alcohol Use History: None Reported Past Drug Use History: None Reported General Exam Limitations: no limitations General appearance: alert, in no apparent distress Head exam: Present: atraumatic, normocephalic, normal inspection Eye exam: Present: normal appearance Neck exam: Present: normal inspection Respiratory exam: Present: normal lung sounds bilaterally, accessory muscle use. Absent: wheezes, rales, rhonchi, stridor Cardiovascular Exam: Present: regular rate, normal rhythm, normal heart sounds. Absent: systolic murmur, diastolic murmur, rubs, gallop, clicks Neurological exam: Present: alert, oriented X3, CN II-XII intact Psychiatric exam: Present: normal affect, normal mood Skin exam: Present: warm, dry, intact, normal color. Absent: rash Course Vital Signs 08/31/22 08/31/22 08/31/22 11:37 14:01 14:40 Temperature 97.9 F Pulse Rate 63 55 L Respiratory 22 20 Rate Blood Pressure 179/85 160/70 O2 Sat by Pulse 94 L 96 Oximetry Fraction of 30 Inspired Oxygen (FIO2) - Reevaluation(s) Reevaluation #1: Nurse reports she has called respiratory twice to initiate bipap 08/31/22 14:29 Medical Decision Making - Medical Decision Making Was pt. sent in by a medical professional or institution (, PA, CARD TENDER, urgent care, hospital, or detention...) When possible be specific @ -No Did you speak to anyone other than the patient for history (EMS, parent, family, police, friend...)? What history was obtained from this source @ -Family member Did you review nursing and triage notes (agree or disagree)? Why? @ -I reviewed and agree with nursing and triage notes Were old charts reviewed (outside hosp., previous admission, EMS record, old EKG, old radiological studies, urgent care reports/EKG's, detention records)? Report findings @ -Previous visits were reviewed Differential Diagnosis (chest pain, altered mental status, abdominal pain women, abdominal pain men, vaginal bleeding, weakness, fever, dyspnea, syncope, hea dache, dizziness, GI bleed, back pain, seizure, CVA, palpatations, mental health)? @ -MDM Differential Dyspnea: Coronary syndrome, arrhythmia, tamponade, asthma, COPD, pulmonary embolism, pneumonia, pneumothorax, pulmonary effusion, anaphylaxis, diabetic ketoacidosis, flailed chest, pulmonary contusion, diaphragmatic rupture, anemia, neuromuscular this is not meant to be an all-inclusive list. EKG interpreted by me (3pts min.). @ -As above X-rays interpreted by me (1pt min.). @ -Yes, cardiomegaly, pulmonary vascular congestion, bilateral pleural effusions. Appears consistent with congestive heart failure. CT interpreted by me (1pt min.). @ -None done U/S interpreted by me (1pt. min.). @ -None done What testing was considered but not performed or refused? (CT, X-rays, U/S, labs)? Why? @ -None What meds were considered but not given or refused? Why? @ -None Did you discuss the management of the patient with other professionals (professionals i.e. , PA, CARD TENDER, lab, RT, psych nurse, director of social media marketing, roof bolter, teacher, vice squad police officer, bilingual patient support caseworker)? Give summary @ -Admitting physician Dr. Schwartz Was smoking cessation discussed for >3mins.? @ -No Was critical care preformed (if so, how long)? @ -No Were there social determinants of health that impacted care today? How? (Homelessness, low income, unemployed, alcoholism, drug addiction, transportation, low edu. Level, literacy, decrease access to med. care, long-term, rehab)? @ -No Was there de-escalation of care discussed even if they declined (Discuss DNR or withdrawal of care, Hospice)? DNR status @ -No What co-morbidities impacted this encounter? (DM, HTN, Smoking, COPD, CAD, Cancer, CVA, ARF, Chemo, Hep., AIDS, mental health diagnosis, sleep apnea, morbid obesity)? @ -CHF, hypertension, chronic kidney disease Was patient admitted / discharged? Hospital course, mention meds given and route, prescriptions, significant lab abnormalities, going to OR and other pertinent info. @ -Patient is an 87-year-old male with history of CHF, CKD, hypertension, hyperlipidemia presenting with chief complaint of difficulty breathing. Symptoms started last night. Symptoms feel similar to when he was admitted previously for CHF. He has bilateral lower extremity swelling. He has increased accessory muscle use. Orders are placed for BiPAP for comfort. BNP 6000. Chest x-ray appears consistent with CHF. Troponin is 0.017. Patient is negative for influenza, RSV, and Covid. Hemoglobin 9.6, consistent with his baseline. Patient will be given sublingual nitro and an inch of paste. Given Lasix 40 mg. He will be admitted for CHF exacerbation. Patient is agreeable to this plan. I spoke with Dr. Schwartz who accepted admission. I discussed this case with my attending Dr. Oden. Undiagnosed new problem with uncertain prognosis? @ -No Drug Therapy requiring intensive monitoring for toxicity (Heparin, Nitro, Insulin, Cardizem)? @ -No Were any procedures done? @ -No Diagnosis/symptom? @ -congestive heart failure Acute, or Chronic, or Acute on Chronic? @ -Acute on chronic Uncomplicated (without systemic symptoms) or Complicated (systemic symptoms)? @ -Complicated Side effects of treatment? @ -No Exacerbation, Progression, or Severe Exacerbation? @ -Exacerbation Poses a threat to life or bodily function? How? (Chest pain, [place], [place], pneumonia, PE, COPD, DKA, ARF, appy, cholecystitis, CVA, Diverticulitis, Homicidal, Suicidal, threat to staff... and all critical care pts) @ -Yes - Lab Data Result diagrams: 08/31/22 11:53 08/31/22 11:53 Lab Results 08/31/22 08/31/22 08/31/22 Range/Units 11:53 11:53 11:53 WBC 4.4 (3.8-10.6) k/uL RBC 2.99 L (4.30-5.90) m/uL Hgb 9.6 L (13.0-17.5) gm/dL Hct 28.6 L (39.0-53.0) % MCV 95.4 (80.0-100.0) fL MCH 32.1 (25.0-35.0) pg MCHC 33.6 (31.0-37.0) g/dL RDW 15.8 H (11.5-15.5) % Plt Count 116 L (150-450) k/uL MPV 9.6 Neutrophils % 67 % Lymphocytes % 15 % Monocytes % 4 % Eosinophils % 10 % Basophils % 1 % Neutrophils # 3.0 (1.3-7.7) k/uL Lymphocytes # 0.7 L (1.0-4.8) k/uL Monocytes # 0.2 (0-1.0) k/uL Eosinophils # 0.4 (0-0.7) k/uL Basophils # 0.0 (0-0.2) k/uL PT 10.0 (9.0-12.0) sec INR 0.9 (<1.2) APTT 26.3 (22.0-30.0) sec Sodium 141 (137-145) mmol/L Potassium 4.2 (3.5-5.1) mmol/L Chloride 111 H (98-107) mmol/L Carbon Dioxide 20 L (22-30) mmol/L Anion Gap 10 mmol/L BUN 104 H* (9-20) mg/dL Creatinine 3.73 H (0.66-1.25) mg/dL Est GFR (CKD-EPI)AfAm 16 (>60 ml/min/1.73 sqM) Est GFR (CKD-EPI)NonAf 14 (>60 ml/min/1.73 sqM) Glucose 153 H (74-99) mg/dL Plasma Lactic Acid Layo (0.7-2.0) mmol/L Calcium 8.8 (8.4-10.2) mg/dL Magnesium 2.0 (1.6-2.3) mg/dL Total Bilirubin 0.6 (0.2-1.3) mg/dL AST 19 (17-59) U/L ALT 19 (4-49) U/L Alkaline Phosphatase 120 (38-126) U/L Troponin I (0.000-0.034) ng/mL NT-Pro-B Natriuret Pep pg/mL Total Protein 6.8 (6.3-8.2) g/dL Albumin 4.0 (3.5-5.0) g/dL Influenza Type A (PCR) (Not Detectd) Influenza Type B (PCR) (Not Detectd) RSV (PCR) (Not Detectd) SARS-CoV-2 (PCR) (Not Detectd) 08/31/22 08/31/22 08/31/22 Range/Units 11:53 11:53 11:53 WBC (3.8-10.6) k/uL RBC (4.30-5.90) m/uL Hgb (13.0-17.5) gm/dL Hct (39.0-53.0) % MCV (80.0-100.0) fL MCH (25.0-35.0) pg MCHC (31.0-37.0) g/dL RDW (11.5-15.5) % Plt Count (150-450) k/uL MPV Neutrophils % % Lymphocytes % % Monocytes % % Eosinophils % % Basophils % % Neutrophils # (1.3-7.7) k/uL Lymphocytes # (1.0-4.8) k/uL Monocytes # (0-1.0) k/uL Eosinophils # (0-0.7) k/uL Basophils # (0-0.2) k/uL PT (9.0-12.0) sec INR (<1.2) APTT (22.0-30.0) sec Sodium (137-145) mmol/L Potassium (3.5-5.1) mmol/L Chloride (98-107) mmol/L Carbon Dioxide (22-30) mmol/L Anion Gap mmol/L BUN (9-20) mg/dL Creatinine (0.66-1.25) mg/dL Est GFR (CKD-EPI)AfAm (>60 ml/min/1.73 sqM) Est GFR (CKD-EPI)NonAf (>60 ml/min/1.73 sqM) Glucose (74-99) mg/dL Plasma Lactic Acid Layo 0.6 L (0.7-2.0) mmol/L Calcium (8.4-10.2) mg/dL Magnesium (1.6-2.3) mg/dL Total Bilirubin (0.2-1.3) mg/dL AST (17-59) U/L ALT (4-49) U/L Alkaline Phosphatase (38-126) U/L Troponin I 0.017 (0.000-0.034) ng/mL NT-Pro-B Natriuret Pep 6000 pg/mL Total Protein (6.3-8.2) g/dL Albumin (3.5-5.0) g/dL Influenza Type A (PCR) (Not Detectd) Influenza Type B (PCR) (Not Detectd) RSV (PCR) (Not Detectd) SARS-CoV-2 (PCR) (Not Detectd) 08/31/22 Range/Units 11:53 WBC (3.8-10.6) k/uL RBC (4.30-5.90) m/uL Hgb (13.0-17.5) gm/dL Hct (39.0-53.0) % MCV (80.0-100.0) fL MCH (25.0-35.0) pg MCHC (31.0-37.0) g/dL RDW (11.5-15.5) % Plt Count (150-450) k/uL MPV Neutrophils % % Lymphocytes % % Monocytes % % Eosinophils % % Basophils % % Neutrophils # (1.3-7.7) k/uL Lymphocytes # (1.0-4.8) k/uL Monocytes # (0-1.0) k/uL Eosinophils # (0-0.7) k/uL Basophils # (0-0.2) k/uL PT (9.0-12.0) sec INR (<1.2) APTT (22.0-30.0) sec Sodium (137-145) mmol/L Potassium (3.5-5.1) mmol/L Chloride (98-107) mmol/L Carbon Dioxide (22-30) mmol/L Anion Gap mmol/L BUN (9-20) mg/dL Creatinine (0.66-1.25) mg/dL Est GFR (CKD-EPI)AfAm (>60 ml/min/1.73 sqM) Est GFR (CKD-EPI)NonAf (>60 ml/min/1.73 sqM) Glucose (74-99) mg/dL Plasma Lactic Acid Layo (0.7-2.0) mmol/L Calcium (8.4-10.2) mg/dL Magnesium (1.6-2.3) mg/dL Total Bilirubin (0.2-1.3) mg/dL AST (17-59) U/L ALT (4-49) U/L Alkaline Phosphatase (38-126) U/L Troponin I (0.000-0.034) ng/mL NT-Pro-B Natriuret Pep pg/mL Total Protein (6.3-8.2) g/dL Albumin (3.5-5.0) g/dL Influenza Type A (PCR) Not Detected (Not Detectd) Influenza Type B (PCR) Not Detected (Not Detectd) RSV (PCR) Not Detected (Not Detectd) SARS-CoV-2 (PCR) Not Detected (Not Detectd) - EKG Data -: EKG Interpreted by Md EKG Comments: Sinus bradycardia with first-degree AV block. Ventricular rate 56. IN interval 267. QRS 129. QTc 469. QTC 460. Indeterminate axis. Disposition Clinical Impression: Congestive heart failure, CKD (chronic kidney disease) Disposition: ADMITTED IP TO THIS [facility] Condition: Serious Time of Disposition: 14:22 Decision to Admit Reason: Admit from EC Decision Date: 08/31/22 Decision Time: 14:22
[2022-08-31 12:37] LABS: INR 0.9 (<1.2); Partial Thromboplastin Time 26.3 sec (22.0-30.0)
--- NOTE | 2022-08-31 12:52 | XR ---
EXAMINATION TYPE: XR chest 2V DATE OF EXAM: 08/31/2022 12:25 PM COMPARISON: Chest radiographs from 06/13/2022. TECHNIQUE: XR chest 2V Frontal and lateral views of the chest. CLINICAL INDICATION:Male, 87 years old with history of difficulty breathing; FINDINGS: Lungs/Pleura: No evidence of focal consolidation or pneumothorax. Blunting of the costophrenic angles is present. Pulmonary vascularity: Pulmonary vascular congestion. Heart/mediastinum: Cardiomediastinal silhouette is enlarged and stable. Musculoskeletal: No acute osseous pathology. IMPRESSION: Cardiomegaly, pulmonary vascular congestion and bilateral pleural effusions. Correlate with BNP for c ongestive heart failure.
[2022-08-31 13:08] LABS: Calcium 8.8 mg/dL (8.4-10.2); Potassium 4.2 mmol/L (3.5-5.1); Total Bilirubin 0.6 mg/dL (0.2-1.3); Total Protein 6.8 g/dL (6.3-8.2)
[2022-08-31] MEDS ORDERED: NITROGLYCERIN SL TABS 0.4 MG TAB SUBLINGUAL PRN (13:08)
[2022-08-31] MEDS ORDERED: NITROGLYCERIN OINT 1 INCH/GM PACKET TOPICAL STA (13:08)
[2022-08-31] MEDS ORDERED: FUROSEMIDE 10 MG/ML 4 ML VIAL IV STA (14:17)
[2022-08-31] MEDS ORDERED: NALOXONE 0.4 MG/ML 1 ML VIAL IV PRN (14:20)
[2022-08-31] MEDS ORDERED: ALBUTEROL NEBULIZED 2.5 MG/3 ML INHALATION PRN (15:56)
[2022-08-31] MEDS ORDERED: LIDOCAINE 5% PATCH TOPICAL PRN (15:56)
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
[2022-08-31 17:04] LABS: Glucose,Whole Blood 124 mg/dL (70-110)
[2022-08-31] MEDS: carvediloL 12.5 MG TAB PO SCH (17:25)
[2022-08-31 20:08] LABS: Glucose,Whole Blood 164 mg/dL (70-110)
[2022-08-31] MEDS: ATORVASTATIN 10 MG TAB PO SCH (21:52)
[2022-08-31] MEDS: FAMOTIDINE 20 MG TAB PO SCH (21:52)
[2022-08-31] MEDS: FUROSEMIDE 10 MG/ML 4 ML VIAL IV SCH (21:52)
[2022-08-31] MEDS: LATANOPROST 0.005% OPHTH DROPS 2.5 ML BTL BOTH EYES SCH (21:52)
[2022-08-31] MEDS: hydrALAZINE HCL 25 MG TAB PO SCH (21:52)
[2022-08-31] MEDS: HEPARIN SODIUM,PORCINE/PF 5,000 UNIT/0.5 ML SYRINGE SQ SCH (21:52)
[2022-08-31] MEDS: DOXAZOSIN 2 MG TAB PO SCH (21:52)
[2022-09-01 01:04] LABS: Appearance,Urine Clear (Clear); Bacteria,Urine Few /hpf; Bilirubin,Urine Negative (Negative); Blood,Urine Negative (Negative); Color,Urine Colorless; Glucose,Urine (UA) Negative (Negative); Hyaline Casts,Urine 1 /lpf (0-2); Ketones,Urine Negative (Negative); Leukocyte Esterase,Urine Moderate (Negative); Mucus,Urine Rare /hpf; Nitrite,Urine Negative (Negative); Protein,Urine Trace (Negative); RBC,Urine 1 /hpf (0-5); Specific Gravity,Urine 1.008 (1.001-1.035); Squamous Epithelial Cell,Urine <1 /hpf (0-4); Urobilinogen,Urine <2.0 mg/dL (<2.0); WBC,Urine 19 /hpf (0-5)
[2022-09-01 06:05] LABS: Glucose,Whole Blood 85 mg/dL (70-110)
[2022-09-01] MEDS: carvediloL 12.5 MG TAB PO SCH ×2 (06:35→16:07)
[2022-09-01 08:25] LABS: Calcium 8.6 mg/dL (8.4-10.2); Potassium 3.8 mmol/L (3.5-5.1)
[2022-09-01] MEDS: hydrALAZINE HCL 25 MG TAB PO SCH ×2 (08:44→20:38)
[2022-09-01] MEDS: allopurinoL 100 MG TAB PO SCH (08:44)
[2022-09-01] MEDS: amLODIPine 10 MG TAB PO SCH (08:44)
[2022-09-01] MEDS: SODIUM BICARBONATE TAB 650 MG TAB PO SCH (08:44)
[2022-09-01] MEDS: FUROSEMIDE 10 MG/ML 4 ML VIAL IV SCH ×2 (08:45→16:07)
[2022-09-01] MEDS: HEPARIN SODIUM,PORCINE/PF 5,000 UNIT/0.5 ML SYRINGE SQ SCH ×2 (08:45→20:38)
--- NOTE | 2022-09-01 09:41 | P.NPCON ---
History of Present Illness - Reason for Consult Consult date: 09/01/22 acute renal failure - Chief Complaint SOB - History of Present Illness This 87-year-old patient, presented with shortness of breath. Workup shows cardiomegaly and pulmonary vascular congestion as well as bilateral effusions on chest x-ray. He was seen in consultation with chronic kidney disease, stage IV- V cardiorenal syndrome and nephrosclerosis. Urinalysis is benign, therefore unlikely diabetic nephropathy. Baseline creatinines about 3.5-4. He was recently admitted and discharged on 06/19/2022 with congestive heart failure. His home medications included torsemide 80 mg daily as well as Lasix 40 twice a day based on the admission notes His urine output is documented at 18 60 mL since admission last night on Lasix 40 every 12 IV. Creatinine is 3.78 which is about baseline. He remains short of breath is on CPAP. He says he is eating well no nausea vomiting no fever chills cough. History of present illness He is known with Patient is known with history of CHF, diabetes, hypertension, hyperlipidemia, kidney disease presenting with chief complaint of shortness of breath. Shortness of breath started last night and has progressively been getting worse. He also states that the swelling in his bilateral lower extremities has been getting worse over the last few weeks. Patient lives alone. Denies chest pain, abdominal pain, nausea, vomiting, fever, chills, cough, congestion, sore throat, Past Medical History Past Medical History: Diabetes Mellitus, Hyperlipidemia, Hypertension, Renal Disease Additional Past Medical History / Comment(s): Brain Aneurysm 2004 History of Any Multi-Drug Resistant Organisms: None Reported Past Surgical History: Appendectomy, Joint Replacement, Orthopedic Surgery Past Psychological History: No Psychological Hx Reported Smoking Status: Former smoker Past Alcohol Use History: None Reported Past Drug Use History: None Reported - Past Family History Father Family Medical History: Diabetes Mellitus Mother Family Medical History: Diabetes Mellitus Medications and Allergies Home Medications Medication Instructions Recorded Confirmed Type Latanoprost/Pf [Latanoprost 0.005% 1 drop BOTH EYES HS 11/23/20 08/31/22 History Eye Drop] Terazosin [Hytrin] 2 mg PO HS 11/23/20 08/31/22 History Dulaglutide [Trulicity] 1.5 mg SQ KO 06/10/22 08/31/22 History Lidocaine 5% Patch [Lidoderm 5% 1 patch TOPICAL DAILY PRN 06/10/22 08/31/22 History Patch] Magnesium Oxide 400 mg PO DAILY 06/10/22 08/31/22 History Omeprazole 20 mg PO BID 06/10/22 08/31/22 History Simvastatin [Zocor] 20 mg PO HS 06/10/22 08/31/22 History allopurinoL [Zyloprim] 100 mg PO DAILY 06/10/22 08/31/22 History rOPINIRole HCL [Requip] 0.5 mg PO HS 06/10/22 08/31/22 History Cyanocobalamin [Vitamin B-12] 1,000 mcg PO DAILY #60 tab 06/18/22 08/31/22 Rx Sodium Bicarbonate Tab 650 mg PO DAILY #30 tab 06/18/22 08/31/22 Rx Torsemide [Demadex] 80 mg PO DAILY 30 Days #120 tab 06/18/22 08/31/22 Rx amLODIPine [Norvasc] 10 mg PO DAILY #30 tab 06/18/22 08/31/22 Rx carvediloL [Coreg] 25 mg PO BID #60 tab 06/18/22 08/31/22 Rx hydrALAZINE HCL [Apresoline] 25 mg PO BID #60 tab 06/18/22 08/31/22 Rx Albuterol Inhaler [Ventolin Hfa 2 puff INHALATION RT-Q6H PRN 08/31/22 08/31/22 History Inhaler] Furosemide [Lasix] 40 mg PO BID 08/31/22 08/31/22 History Allergies Allergy/AdvReac Type Severity Reaction Status Date / Time No Known Allergies Allergy Verified 08/31/22 15:48 Physical Exam Vitals: Vital Signs Temp Pulse Pulse Resp BP BP Pulse Ox 09/01/22 09:12 09/01/22 08:53 98.2 F 55 L 20 160/72 97 09/01/22 04:48 09/01/22 03:40 98.1 F 61 14 125/47 97 09/01/22 00:58 08/31/22 23:45 97.9 F 58 L 18 151/63 96 08/31/22 21:34 54 L 08/31/22 21:27 54 L 08/31/22 21:22 08/31/22 20:00 97.9 F 54 L 19 145/60 94 L 08/31/22 16:30 54 L 24 154/65 96 08/31/22 15:52 08/31/22 14:40 08/31/22 14:01 55 L 20 160/70 96 08/31/22 11:37 97.9 F 63 22 179/85 94 L FiO2 09/01/22 09:12 30 09/01/22 08:53 09/01/22 04:48 30 09/01/22 03:40 30 09/01/22 00:58 30 08/31/22 23:45 30 08/31/22 21:34 08/31/22 21:27 08/31/22 21:22 30 08/31/22 20:00 30 08/31/22 16:30 08/31/22 15:52 30 08/31/22 14:40 30 08/31/22 14:01 08/31/22 11:37 Intake and Output 08/31/22 09/01/22 09/01/22 22:59 06:59 14:59 Intake Total 420 358 Output Total 300 660 900 Balance -300 -240 -542 Intake: Oral 420 358 Output: Urine 300 660 900 Other: Voiding Method Urinal Urinal Urinal # Bowel Movements 1 Weight 77.111 kg 75.8 kg On examination awake alert somewhat short of breath currently on CPAP HEENT exam no JVP noted neck is supple no facial asymmetry Lungs are significant for diminished breath sounds and fine crackles Heart sounds unremarkable no murmur rub gallop somewhat distant heart sounds Abdomen is somewhat distended possibly ascites. Extremity exam was mild edema Neurologically awake alert oriented moves all his extremities Results - Lab Results Most recent lab results Calcium 8.6 mg/dL (8.4-10.2) 09/01/22 07:49 Magnesium 2.0 mg/dL (1.6-2.3) 08/31/22 11:53 08/31/22 11:53 09/01/22 07:49 Assessment and Plan Assessment: Impression 1. Chronic kidney disease stage IV to 5 creatinine about 3.7 to 4.28 baseline, etiology is nephrosclerosis and cardiorenal syndrome. Trace proteinuria t herefore unlikely diabetic nephropathy. Ultrasound dated 06/14/2022 right kidney 8.2 and left kidney 10 cm 2. Admitted with congestive heart failure. Was on large doses of torsemide at home 80 mg. Echocardiogram dated 06/11/2022, shows normal ejection fraction 3. MGUS. 4. Anemia hemoglobin is 9.6 rule out an deficiency 5. Possible ascites Recommendation 1. Increase Lasix to 40 every 8 hours. 2. Check iron saturation 3. If he was compliant with medication and with 80 mg of Demadex if he was taking it, it seems that he will need dialysis. Thank you for this consultation and we'll continue to follow closely
[2022-09-01 11:43] LABS: Glucose,Whole Blood 111 mg/dL (70-110)
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
[2022-09-01] MEDS ORDERED: NON FORMULARY DRUG (Dulaglutide [Trulicity] 1.5 MG/0.5 ML Each) SQ SCH (15:56)
[2022-09-01 16:42] LABS: Glucose,Whole Blood 123 mg/dL (70-110)
[2022-09-01 17:09] LABS: % Iron Saturation 14.5 (15.00-50.00)
[2022-09-01 19:43] LABS: Glucose,Whole Blood 193 mg/dL (70-110)
[2022-09-01] MEDS: ATORVASTATIN 10 MG TAB PO SCH (20:38)
[2022-09-01] MEDS: FAMOTIDINE 20 MG TAB PO SCH (20:38)
[2022-09-01] MEDS: DOXAZOSIN 2 MG TAB PO SCH (20:39)
[2022-09-01] MEDS: LATANOPROST 0.005% OPHTH DROPS 2.5 ML BTL BOTH EYES SCH (20:44)
[2022-09-02] MEDS: FUROSEMIDE 10 MG/ML 4 ML VIAL IV SCH ×2 (00:21→08:46)
[2022-09-02 06:09] LABS: Glucose,Whole Blood 92 mg/dL (70-110)
[2022-09-02] MEDS: carvediloL 12.5 MG TAB PO SCH ×2 (06:40→16:54)
[2022-09-02 07:09] LABS: Calcium 8.5 mg/dL (8.4-10.2); Magnesium 1.9 mg/dL (1.6-2.3); Potassium 3.8 mmol/L (3.5-5.1)
[2022-09-02] MEDS: HEPARIN SODIUM,PORCINE/PF 5,000 UNIT/0.5 ML SYRINGE SQ SCH ×2 (08:46→20:21)
[2022-09-02] MEDS: allopurinoL 100 MG TAB PO SCH (08:46)
[2022-09-02] MEDS: SODIUM BICARBONATE TAB 650 MG TAB PO SCH (08:46)
[2022-09-02] MEDS: hydrALAZINE HCL 25 MG TAB PO SCH ×2 (08:46→20:21)
[2022-09-02] MEDS: amLODIPine 10 MG TAB PO SCH (08:46)
--- NOTE | 2022-09-02 10:49 | P.PN ---
Subjective Patient is seen for follow-up for chronic kidney disease. He was admitted to the hospital with volume overload. Patient has CK D stage IV to 5. Baseline creatinine about 3.5-4 mg/dL. He is currently maintained on Lasix 40 mg IV every 8 hours. Patient states he is feeling slightly better although he remains with significant volume overload. Discussed renal replacement therapy with the patient. He is agreeable to starting treatment if needed this admission. Patient was last hospitalized in May with volume overload. He has not followed up in the office yet after his last hospitalization. No significant complaints today Objective - Vital Signs Vital signs: Vital Signs Temp 98.8 F 09/02/22 08:00 Pulse 52 L 09/02/22 08:00 Resp 19 09/02/22 08:00 BP 157/77 09/02/22 08:00 Pulse Ox 98 09/02/22 08:00 FiO2 30 09/02/22 04:00 Intake & Output 09/01/22 09/02/22 09/02/22 18:59 06:59 18:59 Intake Total 476 240 Output Total 1100 1700 300 Balance -624 -1700 -60 Weight 78 kg Intake: Oral 476 240 Output: Urine 1100 1700 300 Other: Voiding Method Urinal Urinal - Exam Awake, comfortable, no acute distress Examination of the heart S1 and S2 Examination lungs shows decreased breath sounds at the bases Abdomen is soft nontender Examination lower extremities shows edema 2+ bilaterally 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 - Labs CBC & Chem 7: 08/31/22 11:53 09/02/22 06:05 Labs: Abnormal Lab Results - Last 24 Hours (Table) 09/01/22 09/01/22 09/01/22 Range/Units 07:49 11:42 16:39 Chloride (98-107) mmol/L BUN (9-20) mg/dL Creatinine (0.66-1.25) mg/dL POC Glucose (mg/dL) 111 H 123 H (70-110) mg/dL Iron 33 L (65-175) ug/dL % Saturation 14.50 L (15.00-50.00) Transferrin 163.0 L (204.0-354.0) mg/dL 09/01/22 09/02/22 Range/Units 19:42 06:05 Chloride 110 H (98-107) mmol/L BUN 92 H (9-20) mg/dL Creatinine 3.81 H (0.66-1.25) mg/dL POC Glucose (mg/dL) 193 H (70-110) mg/dL Iron (65-175) ug/dL % Saturation (15.00-50.00) Transferrin (204.0-354.0) mg/dL Microbiology - Last 24 Hours (Table) 09/01/22 00:51 Urine Culture - Preliminary Urine,Voided Assessment and Plan Assessment: 1. CK D stage IV to 5 secondary to nephrosclerosis and cardiorenal syndrome with baseline creatinine about 3.5-4.2 mg/dL. Patient has mildly atrophic right kidney. 2. Volume overload currently being diuresed 3. CHF exacerbation acute on top of chronic with preserved ejection fraction 4. MGUS 5. Anemia of chronic disease rule out iron deficiency Plan: Increase Lasix Repeat labs in a.m. Start renal replacement therapy this admission is renal function worsens or volume status not improved. Patient is agreeable. He has seen Dr. Ventura as outpatient but has had vein mapping done.
[2022-09-02 11:59] LABS: Glucose,Whole Blood 167 mg/dL (70-110)
[2022-09-02] MEDS ORDERED: NON FORMULARY DRUG (Dulaglutide [Trulicity] 1.5 MG) SQ SCH (15:56)
[2022-09-02] MEDS: FUROSEMIDE 10 MG/ML 10 ML VIAL IV SCH ×2 (16:11→23:41)
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
[2022-09-02 16:55] LABS: Glucose,Whole Blood 136 mg/dL (70-110)
[2022-09-02] MEDS: DOXAZOSIN 2 MG TAB PO SCH (20:21)
[2022-09-02] MEDS: ATORVASTATIN 10 MG TAB PO SCH (20:21)
[2022-09-02] MEDS: LATANOPROST 0.005% OPHTH DROPS 2.5 ML BTL BOTH EYES SCH (20:21)
[2022-09-02] MEDS: FAMOTIDINE 20 MG TAB PO SCH (20:21)
[2022-09-02 20:30] LABS: Glucose,Whole Blood 171 mg/dL (70-110)
[2022-09-03 06:10] LABS: Glucose,Whole Blood 76 mg/dL (70-110)
[2022-09-03] MEDS: carvediloL 12.5 MG TAB PO SCH ×2 (06:52→17:21)
[2022-09-03 07:33] LABS: Calcium 8.4 mg/dL (8.4-10.2); Potassium 4.1 mmol/L (3.5-5.1)
[2022-09-03] MEDS: FUROSEMIDE 10 MG/ML 10 ML VIAL IV SCH ×2 (09:25→15:32)
[2022-09-03] MEDS: allopurinoL 100 MG TAB PO SCH (09:25)
[2022-09-03] MEDS: hydrALAZINE HCL 25 MG TAB PO SCH (09:25)
[2022-09-03] MEDS: amLODIPine 10 MG TAB PO SCH (09:25)
[2022-09-03] MEDS: SODIUM BICARBONATE TAB 650 MG TAB PO SCH (09:25)
[2022-09-03] MEDS: HEPARIN SODIUM,PORCINE/PF 5,000 UNIT/0.5 ML SYRINGE SQ SCH ×2 (09:26→20:57)
[2022-09-03 11:35] LABS: Glucose,Whole Blood 107 mg/dL (70-110)
--- NOTE | 2022-09-03 12:31 | P.PN ---
Subjective Patient is seen for follow-up for chronic kidney disease. He was admitted to the hospital with volume overload. Patient has CK D stage IV to 5. Baseline creatinine about 3.5-4 mg/dL. He is currently maintained on Lasix 40 mg IV every 8 hours. Patient states he is feeling slightly better although he remains with significant volume overload. Diuretics were increased yesterday and and patient has had increased urine output. He states he is feeling better although he feels he may be coming down with a cold. Shortness of breath has improved. Objective - Vital Signs Vital signs: Vital Signs Temp 98.3 F 09/03/22 08:00 Pulse 63 09/03/22 08:00 Resp 18 09/03/22 08:00 BP 167/68 09/03/22 08:00 Pulse Ox 98 09/03/22 08:00 FiO2 30 09/02/22 04:00 Intake & Output 09/02/22 09/03/22 09/03/22 18:59 06:59 18:59 Intake Total 720 Output Total 300 1000 600 Balance 420 -1000 -600 Weight 72.6 kg Intake: Oral 720 Output: Urine 300 1000 600 Other: Voiding Method Urinal Urinal Urinal - Exam Awake, comfortable, no acute distress Examination of the heart S1 and S2 Examination lungs shows decreased breath sounds at the bases Abdomen is soft nontender Examination lower extremities shows edema 2+ bilaterally [employer] ADMINISTRATOR exam grossly intact - Labs CBC & Chem 7: 08/31/22 11:53 09/03/22 06:36 Labs: Abnormal Lab Results - Last 24 Hours (Table) 09/02/22 09/02/22 09/03/22 Range/Units 16:46 20:28 06:36 BUN 90 H (9-20) mg/dL Creatinine 3.82 H (0.66-1.25) mg/dL POC Glucose (mg/dL) 136 H 171 H (70-110) mg/dL Microbiology - Last 24 Hours (Table) 09/01/22 00:51 Urine Culture - Final Urine,Voided Escherichia coli Assessment and Plan Assessment: 1. CK D stage IV to 5 secondary to nephrosclerosis and cardiorenal syndrome with baseline creatinine about 3.5-4.2 mg/dL. Patient has mildly atrophic right kidney. 2. Volume overload currently being diuresed 3. CHF exacerbation acute on top of chronic with preserved ejection fraction 4. MGUS 5. Anemia of chronic disease rule out iron deficiency Plan: No plans for starting renal replacement therapy as volume status has improved and renal function is stable. Continue with current dose of IV Lasix for another 24 hours Follow-up as outpatient in about 1 week's time post discharge.
[2022-09-03] MEDS ORDERED: LORATADINE 10 MG TAB PO PRN (15:10)
[2022-09-03] MEDS: ISOSORBIDE MONONITRATE ER 30 MG TAB.ER.24H PO SCH (15:32)
[2022-09-03 16:53] LABS: Glucose,Whole Blood 127 mg/dL (70-110)
[2022-09-03 20:18] LABS: Glucose,Whole Blood 132 mg/dL (70-110)
[2022-09-03] MEDS: ATORVASTATIN 10 MG TAB PO SCH (20:57)
[2022-09-03] MEDS: hydrALAZINE HCL 50 MG TAB PO SCH (20:57)
[2022-09-03] MEDS: FAMOTIDINE 20 MG TAB PO SCH (20:57)
[2022-09-03] MEDS: LATANOPROST 0.005% OPHTH DROPS 2.5 ML BTL BOTH EYES SCH (20:57)
[2022-09-03] MEDS: DOXAZOSIN 2 MG TAB PO SCH (20:57)
[2022-09-04 00:09] VITALS: RESP 18
[2022-09-04] MEDS: FUROSEMIDE 10 MG/ML 10 ML VIAL IV SCH ×2 (00:50→08:50)
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
[2022-09-04 06:14] LABS: Glucose,Whole Blood 87 mg/dL (70-110)
[2022-09-04] MEDS: carvediloL 12.5 MG TAB PO SCH (06:41)
[2022-09-04 08:49] VITALS: BP 162/69; PULSE 58; TEMP 97.8
[2022-09-04] MEDS: HEPARIN SODIUM,PORCINE/PF 5,000 UNIT/0.5 ML SYRINGE SQ SCH (08:50)
[2022-09-04] MEDS: amLODIPine 10 MG TAB PO SCH (08:50)
[2022-09-04] MEDS: hydrALAZINE HCL 50 MG TAB PO SCH (08:50)
[2022-09-04] MEDS: allopurinoL 100 MG TAB PO SCH (08:50)
[2022-09-04] MEDS: ISOSORBIDE MONONITRATE ER 30 MG TAB.ER.24H PO SCH (08:50)
[2022-09-04 09:36] LABS: Calcium 8.5 mg/dL (8.4-10.2); Potassium 3.9 mmol/L (3.5-5.1)
[2022-09-04] MEDS ORDERED: SODIUM FERRIC GLUCONAT-SUCROSE 125 MG in SODIUM CHLORIDE 0.9% 100 ML IVPB ONE (11:12)
--- NOTE | 2022-09-04 11:12 | P.PN ---
Subjective Patient is seen for follow-up for chronic kidney disease. He was admitted to the hospital with volume overload. Patient has CK D stage IV to 5. Baseline creatinine about 3.5-4 mg/dL. He is currently maintained on Lasix 40 mg IV every 8 hours. Patient states he is feeling slightly better although he remains with significant volume overload. Patient has had good diuresis. He states he feels much better with significant decrease in his edema. Weight however appears to be significantly in accurate. Serum creatinine at 4.2 today. Patient can be discharged from nephrology standpoint. IV Lasix will be discontinued. Objective - Vital Signs Vital signs: Vital Signs Temp 97.8 F 09/04/22 08:00 Pulse 58 L 09/04/22 08:00 Resp 18 09/04/22 08:00 BP 162/69 09/04/22 08:00 Pulse Ox 99 09/04/22 08:35 FiO2 30 09/02/22 04:00 Intake & Output 09/03/22 09/04/22 09/04/22 18:59 06:59 18:59 Intake Total 240 240 180 Output Total 1200 800 Balance -960 -560 180 Weight 91.5 kg Intake: Oral 240 240 180 Output: Urine 1200 800 Other: Voiding Method Urinal Toilet Urinal - Exam Awake, comfortable, no acute distress Examination of the heart S1 and S2 Examination lungs shows decreased breath sounds at the bases Abdomen is soft nontender Examination lower extremities shows no edema today [employer] exam grossly intact - Labs CBC & Chem 7: 08/31/22 11:53 09/04/22 08:41 Labs: Abnormal Lab Results - Last 24 Hours (Table) 09/03/22 09/03/22 09/04/22 Range/Units 16:46 20:17 08:41 BUN 86 H (9-20) mg/dL Creatinine 4.25 H (0.66-1.25) mg/dL Glucose 150 H (74-99) mg/dL POC Glucose (mg/dL) 127 H 132 H (70-110) mg/dL Microbiology - Last 24 Hours (Table) 09/01/22 00:51 Urine Culture - Final Urine,Voided Escherichia coli Assessment and Plan Assessment: 1. CK D stage IV to 5 secondary to nephrosclerosis and cardiorenal syndrome with baseline creatinine about 3.5-4.2 mg/dL. Patient has mildly atrophic right kidney. 2. Volume overload currently being diuresed, and improved 3. CHF exacerbation acute on top of chronic with preserved ejection fraction 4. MGUS 5. Anemia of chronic disease with iron deficiency Plan: DC IV Lasix Resume Demadex from tomorrow IV iron 1 Follow-up as outpatient in about 1 week's time post discharge.
[2022-09-04 11:52] LABS: Glucose,Whole Blood 93 mg/dL (70-110)
[2022-09-05] MEDS ORDERED: TORSEMIDE 20 MG TAB PO SCH (09:00)
--- NOTE | 2022-09-06 20:53 | P.DS ---
Providers Date of admission: 08/31/22 14:55 Expected date of discharge: 09/04/22 Attending physician: Gerald Schwartz Consults: 08/31/22 14:20 Consult Physician Urgent Consulting Provider: Saskia Salter Consult Reason/Comments: CKD Do you want consulting provider notified?: Yes Primary care physician: Jorge L Davidson [facility] Course: Final diagnosis -Congestive heart failure chronic diastolic dysfunction with acute exacerbation, -Acute hypoxic respiratory failure secondary to CHF exacerbation -chronic kidney disease stage IV patient the serum creatinine at his baseline, discussing renal replacement which will be further addressed outpatient -Type 2 diabetes mellitus -Hyperlipidemia -Hypertension -Benign prostatic hypertrophy -DVT prophylaxis: Subcutaneous heparin -Full code Discharge disposition Patient is being discharged in a stable condition with guarded prognosis to home. Patient will follow-up with in the outpatient setting upon discharge. Patient is to follow-up with nephrology as well as scheduled. Total time taken is greater than 35 minutes. Hospital course This is a 87-year-old male who was recently admitted with increased shortness of breath and CHF exacerbation. Patient also with chronic kidney disease has been following nephrology outpatient for possible renal replacement. Patient has been to see vascular for vein mapping. Patient to continue on current dose of diuretic and close outpatient follow-up with nephrology if kidney functions are worsening and creatinine is currently 4.25. Patient is voiding and nephrology recommends outpatient follow-up in the next 1 week. Patient diuresed well with significant improvement in shortness of breath and [place] does not qualify for home oxygen. Patient has been cleared by consultations and will be discharged home today. Currently no reports of chest pain, shortness of breath, or palpitations. Patient is afebrile. No reports of nausea or vomiting and patient is tolerating diet. Guarded prognosis. Patient appears to have noncompliance with follow-up. Physical exam: Gen: This is a 87-year-old male who is awake, alert and oriented 3, well- developed, well-nourished HEENT: Head is atraumatic, normocephalic. Pupils equal, round. Sclerae is anicteric. NECK: Supple. No JVD. No lymphadenopathy. No thyromegaly. LUNGS: Diminished breath sounds bilaterally with some scattered rhonchi. No intercostal retractions. HEART: Regular rate and rhythm. No murmur. ABDOMEN: Soft. Bowel sounds are present. No masses. No tenderness. EXTREMITIES: No pedal edema. No calf tenderness. NEUROLOGICAL: Patient is awake, alert and oriented x3. Cranial nerves 2 through 12 are grossly intact. Please refer to medication reconciliation sheet for a list of medications. The impression and plan of care has been dictated by Arlet Manzo, Nurse Practitioner as directed. Dr. Efren MD I have performed a history and examination and MDM of this patient, discussed the same with the dictator, and agree with the dictator's assessment and plan as written ,documented as a scribe. Based on total visit time, I have performed more than 50% of the visit. Patient Condition at Discharge: Fair Plan - Discharge Summary Discharge Rx Participant: No New Discharge Prescriptions: New Torsemide [Demadex] 80 mg PO DAILY 30 Days #120 tab hydrALAZINE HCL [Apresoline] 50 mg PO TID 30 Days #90 tab Loratadine [Claritin] 10 mg PO DAILY PRN #0 tab PRN Reason: Congestion carvediloL [Coreg*] 12.5 mg PO BID-W/MEALS 30 Days #60 tab Isosorbide Mononitrate ER [Imdur] 30 mg PO DAILY 30 Days #30 tab Continue Lidocaine 5% Patch [Lidoderm 5% Patch] 1 patch TOPICAL DAILY PRN PRN Reason: Pain Simvastatin [Zocor] 20 mg PO HS Dulaglutide [Trulicity] 1.5 mg SQ KO Cyanocobalamin [Vitamin B-12] 1,000 mcg PO DAILY #60 tab Latanoprost/Pf [Latanoprost 0.005% Eye Drop] 1 drop BOTH EYES HS Omeprazole 20 mg PO BID rOPINIRole HCL [Requip] 0.5 mg PO HS Magnesium Oxide 400 mg PO DAILY allopurinoL [Zyloprim] 100 mg PO DAILY amLODIPine [Norvasc] 10 mg PO DAILY #30 tab Albuterol Inhaler [Ventolin Hfa Inhaler] 2 puff INHALATION RT-Q6H PRN PRN Reason: Shortness Of Breath Or Wheezing Discontinued hydrALAZINE HCL [Apresoline] 25 mg PO BID #60 tab carvediloL [Coreg] 25 mg PO BID #60 tab Furosemide [Lasix] 40 mg PO BID Terazosin [Hytrin] 2 mg PO HS Torsemide [Demadex] 80 mg PO DAILY 30 Days #120 tab Sodium Bicarbonate Tab 650 mg PO DAILY #30 tab Discharge Medication List Latanoprost/Pf [Latanoprost 0.005% Eye Drop] 1 drop BOTH EYES HS 11/23/20 [History] Dulaglutide [Trulicity] 1.5 mg SQ KO 06/10/22 [History] Lidocaine 5% Patch [Lidoderm 5% Patch] 1 patch TOPICAL DAILY PRN 06/10/22 [History] Magnesium Oxide 400 mg PO DAILY 06/10/22 [History] Omeprazole 20 mg PO BID 06/10/22 [History] Simvastatin [Zocor] 20 mg PO HS 06/10/22 [History] allopurinoL [Zyloprim] 100 mg PO DAILY 06/10/22 [History] rOPINIRole HCL [Requip] 0.5 mg PO HS 06/10/22 [History] Cyanocobalamin [Vitamin B-12] 1,000 mcg PO DAILY #60 tab 06/18/22 [Rx] amLODIPine [Norvasc] 10 mg PO DAILY #30 tab 06/18/22 [Rx] Albuterol Inhaler [Ventolin Hfa Inhaler] 2 puff INHALATION RT-Q6H PRN 08/31/22 [History] Isosorbide Mononitrate ER [Imdur] 30 mg PO DAILY 30 Days #30 tab 09/04/22 [Rx] Loratadine [Claritin] 10 mg PO DAILY PRN #0 tab 09/04/22 [Rx] Torsemide [Demadex] 80 mg PO DAILY 30 Days #120 tab 09/04/22 [Rx] carvediloL [Coreg*] 12.5 mg PO BID-W/MEALS 30 Days #60 tab 09/04/22 [Rx] hydrALAZINE HCL [Apresoline] 50 mg PO TID 30 Days #90 tab 09/04/22 [Rx] Follow up Appointment(s)/Referral(s): Jorge L Davidson MD [Primary Care Provider] - 1-2 days (Please call to yonas an appointment.) Saskia Salter MD [STAFF PHYSICIAN] - 1 Week (Please call to make an appointment.) Patient Instructions/Handouts: Heart Failure (DC), Chronic Kidney Disease (DC) Activity/Diet/Wound Care/Special Instructions: Activity Limited until follow-up Follow-up with primary care provider on discharge Follow-up with nephrology as discussed in one week Resume torsemide Starting tomorrow on 09/05/2022 Continue diabetic, renal, heart healthy diet Discharge Disposition: HOME SELF-CARE
== END 2022-09-04 13:37 | disposition home or self-care (01) | DRG 682 ==
LOC: EC 11:31 → 3SCARD 14:55
PROVIDERS: ADMIT Internal Medicine; ATTEND Internal Medicine
DX: I12.0 Hypertensive chronic kidney disease with stage 5 chronic kidney disease or end stage renal disease (principal); I50.33 Acute on chronic diastolic (congestive) heart failure; J96.01 Acute respiratory failure with hypoxia; N17.9 Acute kidney failure, unspecified; N18.5 Chronic kidney disease, stage 5; D47.2 Monoclonal gammopathy; D50.9 Iron deficiency anemia, unspecified; D63.8 Anemia in other chronic diseases classified elsewhere; E11.22 Type 2 diabetes mellitus with diabetic chronic kidney disease; Z20.822 Contact with and (suspected) exposure to COVID-19; N40.0 Benign prostatic hyperplasia without lower urinary tract symptoms; Z79.899 Other long term (current) drug therapy; Z91.199 Patient's noncompliance with other medical treatment and regimen due to unspecified reason; Z87.891 Personal history of nicotine dependence; Z87.19 Personal history of other diseases of the digestive system
CPT/HCPCS: 36415; 71046; 80048; 80053; 81001; 83036; 83540; 83550; 83605; 83735; 83880; 84484; 85025; 85610; 85730; 87077; 87086; 87186; 87636; 93005; 94640; 94660; 94760; 96374; 99285

== ENCOUNTER 2023-09-11 08:47 | Day surgery (SDC) | payer OTHER, MEDICARE ==
[2023-09-11 09:53] LABS: Anisocytosis Slight; Basophils % (A) 1 %; Eosinophils % (A) 1 %; HGB 9.2 gm/dL (13.0-17.5); Hypochromasia Marked; Lymphocytes # (A) 0.3 k/uL (1.0-4.8); Lymphocytes % (A) 7 %; MCH 30.3 pg (25.0-35.0); MCHC 30.7 g/dL (31.0-37.0); MCV 98.7 fL (80.0-100.0); Macrocytosis Slight; Mean Platelet Volume 8.5; Monocytes # (A) 0.3 k/uL (0-1.0); Monocytes % (A) 8 %; Neutrophils % (A) 82 %; Platelet Count 145 k/uL (150-450); RBC 3.04 m/uL (4.30-5.90); RDW 17.3 % (11.5-15.5); WBC 3.6 k/uL (3.8-10.6)
[2023-09-11 09:58] LABS: INR 1.1 (<1.2); Prothrombin Time 11.6 sec (10.0-12.5)
[2023-09-11 10:02] VITALS: RESP 16; TEMP 98.2
[2023-09-11 10:10] LABS: ALT 35 U/L (4-49); AST 52 U/L (17-59); African American GFR (CKD) 14 (>60 ml/min/1.73 sqM); Albumin 2.7 g/dL (3.5-5.0); Alkaline Phosphatase 204 U/L (38-126); Anion Gap 3 mmol/L; Blood Urea Nitrogen 40 mg/dL (9-20); Calcium 9.6 mg/dL (8.4-10.2); Carbon Dioxide 31 mmol/L (22-30); Chloride 99 mmol/L (98-107); Glucose 177 mg/dL (74-99); Non-African American GFR(CKD) 12 (>60 ml/min/1.73 sqM); Sodium 133 mmol/L (137-145); Total Bilirubin 0.6 mg/dL (0.2-1.3); Total Protein 6.1 g/dL (6.3-8.2)
[2023-09-11 10:54] VITALS: PULSE 72
[2023-09-11 11:19] VITALS: BP 105/60
--- NOTE | 2023-09-12 14:58 | US ---
EXAMINATION TYPE: US paracentesis abd w/image DATE OF EXAM: 09/11/2023 10:22 AM CLINICAL INDICATION:Male, 88 years old with history of R18.8 OTHER ASCITES; COMPARISON: 06/14/2022 ATTENDING: Dr. Ariel Garza PROCEDURE: Informed consent was obtained. The risks of the procedure were extensively explained incl uding risk of damage to surrounding bowel with perforation and need for additional procedures. Proced ure was performed in the ultrasound procedure suite. Ultrasound imaging of the abdomen demonstrate as citic fluid. An appropriate access site was localized to the lower abdomen. Timeout was taken per pro tocol. The skin was prepped and draped in the usual sterile fashion and then locally anesthetized wit h 1% lidocaine. The peritoneal cavity was then accessed via a 5-Hebrew one-step needle/catheter. Ap proximately 4100 cc of clear straw-colored fluid was obtained. Postprocedural imaging of the abdomen demonstrate a minimal amount of abdominal fluid. Patient tolerated procedure well without immediate complication. Hemostasis at the procedural site w as obtained with a sterile bandage placed. The patient was monitored in the holding area following th e procedure and was subsequently discharged in stable condition. IMPRESSION: Ultrasound guided paracentesis, with approximately 4100 cc of clear straw-colored fluid drained. No immediate complications were evident.
== END 2023-09-11 11:20 ==
LOC: RADPROMAIN 08:47
PROVIDERS: ATTEND Internal Medicine Geriatric Medicine
DX: R18.8 Other ascites (principal)
CPT/HCPCS: 36415; 49083; 80053; 85025; 85610